=== PATIENT | female | born 1930 | race Asian ===

== ENCOUNTER 2016-07-20 15:40 | Inpatient (IN) | payer BC, OTHER ==
--- NOTE | 2016-07-20 16:26 | CON.CARD ---
Consult Consult Specialty:: Cardiology Reason for Consultation:: palpitations sob - History of Present Illness History of Present Illness: sob palpitations hr 140 patient brought by family to the er PMH s/p 2 drug-eluting (Promus) coronary stents in LAD 2009 Non-obstructive 3 VD on 07/2012 coronary angiogram s/p cataract surgery Ongoing medical problems angina CAD: s/p 2 DEStents to mid-LAD 08/[facility] at [facility] by Dr. Ramirez Cor angiogram 07/2012: LM 30stial; prox and midLAD stent sites patent; distal LAD 30% ostial LCx 50% mid LCx 30% RCA prox 30% OM3 40%. Diabetes mellitus, type II Gout Hypercholesterolemia Hyperlipidemia IgM monoclonal gammopathy; anemia overweight Meds Allopurinol 300 MG Oral Tablet Aspirin 81 MG Oral Tablet Delayed Release Atorvastatin Calcium (Lipitor) 80 MG Oral Tablet Atorvastatin Calcium 40 MG Oral Tablet Clopidogrel Bisulfate (Plavix) 75 MG Oral Tablet Colchicine 0.6 MG Oral Tablet Losartan Potassium 25 MG Oral Tablet MetFORMIN HCl 500 MG Oral Tablet Metoprolol Succinate (Metoprolol Succinate ER) 100 MG Oral Tablet Extended Release 24 Hour Nifedipine (NIFEdipine ER) 60 MG Oral Tablet Extended Release 24 Hour Nifedipine (Procardia XL) 60 MG Oral Tablet Extended Release 24 Hour ECHO Name: Mahesh Fatima Date: June 15, 2016 Referring MD: Diagnosis: HTN Aortic Root Normal Tricuspid Valve Normal Pericardium Normal Pulmonary artery Normal Pulmonic Valve Normal Aortic Valve Normal Left Ventricle Normal Right Ventricle Normal Pulmonic veins Not recorded Mitral Annulus Normal Mitral Leaflets Moderately Thickened Right Atrium Normal Left Atrium Moderate Enlargement Inferior vena cava Not recorded Aortic valve: AR = None Mitral valve: MR = Mild Pulmonic valve: CO = Mild Tricuspid valve TR= Mild SUMMARY 1. Normal left ventricular ejection fraction. 2. No regional wall motion abnormalities. 3. Abnormal diastolic compliance of the left ventricle. 4. Mild left ventricular hypertrophy. 5. Moderate left atrial enlargement. 6. Mild pulmonic valve regurgitation. 7. Moderately thickened mitral valve leaflets. 8. Mild mitral valve regurgitation. 9. Mild tricuspid valve regurgitation with normal right ventricle systolic pressure - Past Medical History Cardio/Vascular: Yes: CAD, CHF, HTN Renal/: Yes: Renal Inusuff Musculoskeletal: Yes: Chronic low back pain, Osteoarthritis Endocrine: Yes: Diabetes Mellitus - Alcohol/Substance Use Hx Alcohol Use: No History of Substance Use: reports: None - Smoking History Smoking history: Never smoked Have you smoked in the past 12 months: No Aproximately how many cigarettes per day: 0 - Social History ADL: Independent History of Recent Travel: No Home Medications - Allergies Allergies/Adverse Reactions: Allergies Allergy/AdvReac Type Severity Reaction Status Date / Time No Known Allergies Allergy Verified 07/20/16 15:53 - Home Medications Home Medications: Ambulatory Orders Allopurinol [Zyloprim -] 100 mg PO BID 09/20/15 Aspirin [Cheo Chewable Aspirin] 81 mg PO DAILY 09/20/15 Atorvastatin Ca [Lipitor] 40 mg PO HS 09/20/15 Clopidogrel Bisulfate [Plavix -] 75 mg PO DAILY 09/20/15 Glipizide [Glipizide ER] 2.5 mg PO HS 09/20/15 Glipizide [Glipizide ER] 5 mg PO DAILY 09/20/15 Metoprolol Succinate [Toprol XL -] 100 mg PO DAILY 09/20/15 Nifedipine ER [Procardia XL -] 60 mg PO BID 09/20/15 Amoxicillin - [Amoxicillin 500mg Capsule -] 500 mg PO BIDWM #10 capsule Insulin (Novolog) [Novolog -] 0 units SQ ACHS units 09/23/15 Sodium Chloride Tablet - 1 gm PO DAILY #20 tablet 09/23/15 Review of Systems - Review of Systems Constitutional: reports: No Symptoms Eyes: reports: No Symptoms HENT: reports: No Symptoms Neck: reports: No Symptoms Cardiovascular: reports: No Symptoms, Shortness of Breath Respiratory: reports: SOB Gastrointestinal: reports: No Symptoms Genitourinary: reports: No Symptoms Breasts: reports: No Symptoms Reported Musculoskeletal: reports: No Symptoms Integumentary: reports: No Symptoms Neurological: reports: No Symptoms Endocrine: reports: No Symptoms Hematology/Lymphatic: reports: No Symptoms Psychiatric: reports: No Symptoms Vital Signs: Vital Signs Temperature 98.2 F 07/20/16 15:52 Pulse Rate 142 H 07/20/16 15:52 Respiratory Rate 19 07/20/16 15:52 Blood Pressure 147/81 07/20/16 15:52 O2 Sat by Pulse Oximetry (%) 92 L 07/20/16 15:52 Constitutional: Yes: Well Nourished, No Distress, Calm Eyes: Yes: WNL, Conjunctiva Clear, EOM Intact HENT: Yes: WNL, Atraumatic, Normocephalic Neck: Yes: WNL, Supple, Trachea Midline Respiratory: Yes: WNL, Regular, CTA Bilaterally Gastrointestinal: Yes: WNL, Normal Bowel Sounds Renal/: Yes: WNL Cardiovascular: Yes: WNL, Regular Rate and Rhythm Musculoskeletal: Yes: WNL Extremities: Yes: WNL Edema: Yes Integumentary: Yes: WNL Neurological: Yes: WNL, Alert, Oriented ...Motor Strength: WNL Psychiatric: Yes: WNL, Alert, Oriented Imaging - Results Chest X-ray: Pending EKG: Image Reviewed (atrial tachycardia 2;1 block) Problem List - Problems (1) CAD (coronary artery disease) Code(s): I25.10 - ATHSCL HEART DISEASE OF [place] CORONARY ARTERY W/O ANG PCTRS (2) Chronic diastolic (congestive) heart failure Code(s): I50.32 - CHRONIC DIASTOLIC (CONGESTIVE) HEART FAILURE (3) Diabetes Code(s): E11.9 - TYPE 2 DIABETES MELLITUS WITHOUT COMPLICATIONS (4) HTN (hypertension) Code(s): I10 - ESSENTIAL (PRIMARY) HYPERTENSION (5) Hyperlipidemia Code(s): E78.5 - HYPERLIPIDEMIA, UNSPECIFIED (6) Hyponatremia with decreased serum osmolality Code(s): E87.1 - HYPO-OSMOLALITY AND HYPONATREMIA Assessment/Plan atrial tachycardia 2;1 block CHF diastolic acute angina CAD: s/p 2 DEStents to mid-LAD 08/2009 at [facility] by Dr. Ramirez Cor angiogram 07/2012: LM 30stial; prox and midLAD stent sites patent; distal LAD 30% ostial LCx 50% mid LCx 30% RCA prox 30% OM3 40%. Diabetes mellitus, type II Gout Hypercholesterolemia Hyperlipidemia IgM monoclonal gammopathy; anemia overweight Plan r/o mi telemetry or icu iv lasix echo iv cardizem bolus/drip to rate control ac with heparin restart plavix and Toprol
[2016-07-20] MEDS ORDERED: dilTIAZem HCL 50 MG/10 ML - 10 ML VIAL IVPUSH ONE (16:27)
[2016-07-20] MEDS ORDERED: ASPIRIN 81 MG CHEWABLE TABLETS PO ONE (16:29)
--- NOTE | 2016-07-20 16:35 | PDOC ---
History of Present Illness - General History Source: Patient Exam Limitations: No Limitations - History of Present Illness Initial Comments: 07/20/16 16:35 The patient is a 85 year old female presenting with her family, with a significant past medical history of LA, CAD s/p stents, CHF, NIDDM, renal insufficiency, and HTN, who presents to the emergency department with tachycardia and shortness of breath. The patient notes that she recently had a right ear infection and is currently taking cipro ear drops and oral tablets. She states that over the last 7 months she has noticed increase in her lower extremity edema but has increased in severity over the last week or so. The patient denies chest pain, headache and dizziness. Denies fever, chills, nausea, vomit, diarrhea and constipation. Denies dysuria, frequency, urgency and hematuria. Allergies: None Past surgical history: angelia. knee replacement, left lobe thyroidectomy Social history: No alcohol, tobacco or drug use reported PMD - Dr. Margareth Woodard Licensed Therapist - Dr. Clayton <Kleber Onofre - Last Filed: 07/20/16 18:32> - General History Source: Patient Exam Limitations: No Limitations <Edilberto Felix - Last Filed: 07/23/16 15:42> - General Chief Complaint: Tachycardia Stated Complaint: SOB Time Seen by Provider: 07/20/16 16:18 Past History <Kleber Onofre - Last Filed: 07/20/16 18:32> - Past Medical History Anemia: No Asthma: No Cancer: No Cardiac Disorders: Yes (mi/cath/2 stents) CVA: No COPD: No CHF: No Dementia: No Diabetes: Yes (po meds only) GI Disorders: No Disorders: No HTN: Yes Hypercholesterolemia: No Liver Disease: No Seizures: No Thyroid Disease: Yes (left lobe thyroidectomy) - Surgical History Abdominal Surgery: No Appendectomy: No Cardiac Surgery: Yes (2 STENTS) Cholecystectomy: No Lung Surgery: No Orthopedic Surgery: Yes (angelia. knee replacement) - Psycho/Social/Smoking Cessation Hx Suicidal Ideation: No Smoking Status: No Smoking History: Never smoked Have you smoked in the past 12 months: No Number of Cigarettes Smoked Daily: 0 Information on smoking cessation initiated: No Hx Alcohol Use: No Drug/Substance Use Hx: No Substance Use Type: None Hx Substance Use Treatment: No <Edilberto Felix - Last Filed: 07/23/16 15:42> - Past Medical History Allergies/Adverse Reactions: Allergies Allergy/AdvReac Type Severity Reaction Status Date / Time No Known Allergies Allergy Verified 07/20/16 15:53 Home Medications: Ambulatory Orders Allopurinol [Zyloprim -] 100 mg PO BID 09/20/15 Aspirin [Cheo Chewable Aspirin] 81 mg PO DAILY 09/20/15 Atorvastatin Ca [Lipitor] 40 mg PO HS 09/20/15 Clopidogrel Bisulfate [Plavix -] 75 mg PO DAILY 09/20/15 Glipizide [Glipizide ER] 2.5 mg PO HS 09/20/15 Glipizide [Glipizide ER] 5 mg PO DAILY 09/20/15 Metoprolol Succinate [Toprol XL -] 100 mg PO DAILY 09/20/15 Nifedipine ER [Procardia XL -] 60 mg PO BID 09/20/15 Review of Systems - Review of Systems Able to Perform ROS?: Yes Comments:: 07/20/16 16:36 GENERAL/CONSTITUTIONAL: No fever or chills. No weakness. HEAD, EYES, EARS, NOSE AND THROAT: No change in vision. No ear pain or discharge. No sore throat. CARDIOVASCULAR: +Shortness of breath and No chest pain RESPIRATORY: No cough, wheezing, or hemoptysis. GASTROINTESTINAL: No nausea, vomiting, diarrhea or constipation. GENITOURINARY: No dysuria, frequency, or change in urination. MUSCULOSKELETAL: No joint or muscle swelling or pain. No neck or back pain. SKIN: No rash NEUROLOGIC: No headache, vertigo, loss of consciousness, or change in strength/ sensation. ENDOCRINE: No increased thirst. No abnormal weight change HEMATOLOGIC/LYMPHATIC: No anemia, easy bleeding, or history of blood clots. ALLERGIC/IMMUNOLOGIC: No hives or skin allergy. <Kleber Onofre - Last Filed: 07/20/16 18:32> *Physical Exam - Vital Signs Last Vital Signs Temp Pulse Resp BP Pulse Ox 98.2 F 142 H 19 147/81 92 L 07/20/16 15:52 07/20/16 15:52 07/20/16 15:52 07/20/16 15:52 07/20/16 15:52 - Physical Exam Comments: 07/20/16 16:36 GENERAL: Awake, alert, and fully oriented, in no acute distress HEAD: No signs of trauma, normocephalic, atraumatic EYES: PERRLA, EOMI, sclera anicteric, conjunctiva clear ENT: Auricles normal inspection, hearing grossly normal, nares patent, oropharynx clear without exudates. Moist mucosa NECK: Normal ROM, supple, no lymphadenopathy, JVD, or masses LUNGS: No distress, speaks full sentences, clear to auscultation bilaterally HEART: +Tachycardia, normal S1 and S2, no murmurs, rubs or gallops, peripheral pulses normal and equal bilaterally. ABDOMEN: Soft, nontender, normoactive bowel sounds. No guarding, no rebound. No masses EXTREMITIES: 2+ pitting edema, Normal range of motion. No clubbing or cyanosis. NEUROLOGICAL: Cranial nerves II through XII grossly intact. Normal speech, normal gait, no focal sensorimotor deficits SKIN: Warm, Dry, normal turgor, no rashes or lesions noted. <Kleber Onofre - Last Filed: 07/20/16 18:32> - Vital Signs Last Vital Signs Temp Pulse Resp BP Pulse Ox 98.2 F 142 H 19 147/81 92 L 07/20/16 15:52 07/20/16 15:52 07/20/16 15:52 07/20/16 15:52 07/20/16 15:52 <Edilberto Felix - Last Filed: 07/23/16 15:42> Heart Score/ECG Review - History History: Moderately suspicious - Electrocardiogram EKG: Non specific repolarization disturbance - Age Age: >/= 65 - Risk Factors Based on the list above the patient has:: >/=3 risk factors or Hx atherosclerotic disease #1 ECG reviewed & interpreted by me at: 16:20 07/20/16 16:31 atrial tachycardia, LAFB, subSTD II, no TEODORA, left axis deviation, QTC 517 msec #2 ECG reviewed & interpreted by me at: 17:20 07/20/16 17:27 atrial flutter with variable AV block 84, left axis deviation, no std/teodora, QTC 470 msec <Edilberto Felix - Last Filed: 07/23/16 15:42> ED Treatment Course - LABORATORY CBC & Chemistry Diagram: 07/20/16 16:40 07/20/16 16:40 <Kleber Onofre - Last Filed: 07/20/16 18:32> - LABORATORY CBC & Chemistry Diagram: 07/23/16 06:20 07/23/16 06:20 - RADIOLOGY Radiology Studies Ordered: Category Date Time Status CHEST X-RAY PORTABLE* [RAD] Stat Radiology 07/20/16 16:20 Ordered <Edilberto Felix - Last Filed: 07/23/16 15:42> Medical Decision Making - Medical Decision Making 07/20/16 18:32 Dr. Margareth Woodard was consulted regarding the patient at 6:11pm [phone] <Kleber Onofre - Last Filed: 07/20/16 18:32> - Critical Care Time Total Critical Care Time (minutes): 35 Critical Care Statement: The care of this patient involved high complexity decision making to prevent further life threatening deterioration of the patient 's condition and/or to evalute & treat vital organ system(s) failure or risk of failure. - Medical Decision Making 07/20/16 16:31 A portion of this note was written by my scribe, under my supervision. Vital Signs Temp Pulse Resp BP Pulse Ox 98.2 F 142 H 19 147/81 92 L 07/20/16 15:52 07/20/16 15:52 07/20/16 15:52 07/20/16 15:52 07/20/16 15:52 85 year old male with PMH of CRI, CAD s/p stents, CHF on 40 mg lasix daily, HTN , DM p/w SOB and palpitations since 1 am today. The patient noticed that she was feeling more dyspneic, but denied chest pain. Pt reported that she is currently on cipro drop and oral abx for R otitis media that was prescribed by her outpatient physician. Denies other symptoms. Upon arrival, the patient reports feeling SOB. The patient is here with her utility aide DR. Dupree. Noted to be in atrial tachycardia. As per DR. Dupree, start with IV cardizem. Pt will need ACS/CHF workup given lower extremity edema and hx of CHF. Likely will need lasix. Ultimately, the patient will need to be admitted for further evaluation. 07/20/16 18:16 CBC, BMP 07/20/16 16:40 04/12/17 16:40 CMP Sodium 136 mmol/L (136-145) 07/20/16 16:40 Potassium 4.4 mmol/L (3.5-5.1) 07/20/16 16:40 Chloride 99 mmol/L (98-107) 07/20/16 16:40 Carbon Dioxide 24 mmol/L (21-32) 07/20/16 16:40 Anion Gap 13 (8-16) 07/20/16 16:40 BUN 35 mg/dL (7-18) H D 07/20/16 16:40 Creatinine 1.6 mg/dL (0.55-1.02) H D 07/20/16 16:40 Creat Clearance w eGFR 30.78 (>60) 07/20/16 16:40 Random Glucose 229 mg/dL (74-106) H D 07/20/16 16:40 Calcium 9.0 mg/dL (8.5-10.1) 07/20/16 16:40 Magnesium 2.2 mg/dL (1.8-2.4) D 07/20/16 16:40 Total Bilirubin 0.5 mg/dL (0.2-1.0) 07/20/16 16:40 AST 100 U/L (15-37) H D 07/20/16 16:40 ALT 123 U/L (12-78) H D 07/20/16 16:40 Alkaline Phosphatase 196 U/L (45-117) H D 07/20/16 16:40 Creatine Kinase 247 IU/L (26-192) H 07/20/16 16:40 CK-MB (CK-2) < 1.000 ng/ml (0.5-3.6) 07/20/16 16:40 Troponin I 0.15 ng/ml (0.00-0.05) H 07/20/16 16:40 B-Natriuretic Peptide 80661.96 pg/ml (5-450) H 07/20/16 16:40 Total Protein 7.8 g/dl (6.4-8.2) 07/20/16 16:40 Albumin 3.4 g/dl (3.4-5.0) 07/20/16 16:40 Patient's heart rate improved with 20 minutes of IV diltiazem. Heart rate is now under 100. Repeat EKG demonstrates atrial flutter with variable block. Patient was given 30 mg of by mouth Cardizem. Patient noted have an elevated BNP of 14,000 and a chest x-ray, reviewed by me, pending official read with pulmonary vascular congestion. 80 mg of IV diltiazem ordered. Aspirin was given. Though I suspect the mildly elevated troponin secondary to fluid overload. Case was discussed with Dr. Woodard which is the patient to inpatient telemetry. Case discussed in detail with admitting physician including history, physical exam and ancillary studies. Admitting physician has assumed care for the patient, will follow all pending diagnostics and will complete the evaluation and treatment. <Edilberto Felix - Last Filed: 07/23/16 15:42> *DC/Admit/Observation/Transfer - Attestations Scribe Attestion: 07/20/16 16:3 Documentation prepared by Kleber Onofre, acting as medical imaging director for Edilberto Felix MD <Kleber Onofre - Last Filed: 07/20/16 18:32> - Discharge Dispostion Admit: Yes <Edilberto Felix - Last Filed: 07/23/16 15:42> Diagnosis at time of Disposition: Atrial fibrillation with RVR CHF (congestive heart failure) Qualifiers: Congestive heart failure type: unspecified congestive heart failure type Congestive heart failure chronicity: acute Qualified Code(s): I50.9 - Heart failure, unspecified - Referrals
[2016-07-20] MEDS ORDERED: ASPIRIN 81 MG CHEWABLE TABLETS ONE (16:38)
[2016-07-20] MEDS ORDERED: dilTIAZem HCL 125 MG/25 ML - 25 ML VIAL ONE (16:38)
[2016-07-20 16:48] LABS: BASOPHIL 0.9 % (0-2.0); EOSINOPHIL 0.3 % (0-4.5); MCH 30.1 pg (25.7-33.7); MCHC 32.7 g/dl (32.0-36.0); MEAN PLT VOLUME 9.1 fl (7.5-11.1); NEUTROPHILS 80.6 % (42.8-82.8); PLATELET COUNT 239 K/MM3 (134-434); RDW 15.1 % (11.6-15.6); WHITE BLOOD COUNT 11.5 K/mm3 (4.0-10.0)
[2016-07-20] MEDS ORDERED: dilTIAZem HCL 30 MG TABLET (FP) PO ONE (16:51)
[2016-07-20 17:01] LABS: INR 1.04 (0.82-1.09); PROTHROMBIN TIME (PATIENT) 11.4 SEC (9.98-11.88)
[2016-07-20 17:04] LABS: ACTIVATED PTT 30.5 SECONDS (26.9-34.4)
[2016-07-20 17:19] LABS: ALBUMIN 3.4 g/dl (3.4-5.0); ANION GAP 13 (8-16); BILIRUBIN,TOTAL 0.5 mg/dL (0.2-1.0); CO2 24 mmol/L (21-32); CREATININE 1.6 mg/dL (0.55-1.02); GLUCOSE,RANDOM 229 mg/dL (74-106); MAGNESIUM 2.2 mg/dL (1.8-2.4); SGOT/AST 100 U/L (15-37); SGPT/ALT 123 U/L (12-78); TOT PROT 7.8 g/dl (6.4-8.2)
[2016-07-20 17:21] LABS: ALK PHOS 196 U/L (45-117); TROPONIN I 0.15 ng/ml (0.00-0.05)
[2016-07-20] MEDS ORDERED: dilTIAZem HCL 30 MG TABLET (FP) ONE (17:22)
[2016-07-20] MEDS ORDERED: FUROSEMIDE 40 MG/4 ML INJECTABLE VIAL IVPB ONE (18:05)
[2016-07-20] MEDS ORDERED: FUROSEMIDE 40 MG/4 ML INJECTABLE VIAL ONE (18:18)
[2016-07-20 18:46] LABS: URINE APPEARANCE CLEAR; URINE BILIRUBIN NEGATIVE (NEGATIVE); URINE BLOOD NEGATIVE (NEGATIVE); URINE COLOR STRAW; URINE GLUCOSE (UA) NEGATIVE (NEGATIVE); URINE KETONE NEGATIVE (NEGATIVE); URINE LEUK ESTERASE NEGATIVE (NEGATIVE); URINE NITRITE NEGATIVE (NEGATIVE); URINE PROTEIN NEGATIVE (NEGATIVE); URINE UROBILINOGEN NEGATIVE E.U./dl (0.2-1.0)
[2016-07-20] MEDS ORDERED: HEPARIN NA (PORCINE) 5,000 UNITS/ML 1ML VIAL IVPUSH PRN ×2 (21:43)
[2016-07-20] MEDS ORDERED: glipiZIDE-XL 2.5 MG TAB.ER.24 PO SCH ×3 (22:00)
[2016-07-20] MEDS ORDERED: HEPARIN INFUSION - 500 ML IVPB ONE (23:28)
[2016-07-21] MEDS ORDERED: dilTIAZem HCL 50 MG/10 ML - 10 ML VIAL IVPUSH ONE (00:46)
[2016-07-21] MEDS ORDERED: dilTIAZem HCL 125 MG/25 ML - 25 ML VIAL ONE (00:47)
[2016-07-21] MEDS: HEPARIN - 25,000 UNIT in SODIUM CHLORIDE 495 ML IV SCH ×2 (01:22→11:28)
[2016-07-21] MEDS: NIFEdipine E.R 60 MG TABLET (UD) PO SCH ×3 (01:27→22:19)
[2016-07-21] MEDS: ALLOPURINOL 100 MG TABLET (FP) PO SCH ×3 (06:32→22:02)
[2016-07-21] MEDS: INSULIN SLIDING SCALE (NOVOLOG) 1 VIAL SQ SCH ×6 (06:53→22:01)
[2016-07-21] MEDS ORDERED: INSULIN (NOVOLOG) ASPART 100 UNITS/ML 10ML VIAL ONE ×4 (06:56→17:45)
[2016-07-21 07:41] LABS: BASOPHIL 0.4 % (0-2.0); EOSINOPHIL 0.1 % (0-4.5); MCH 30.6 pg (25.7-33.7); MCHC 32.9 g/dl (32.0-36.0); MEAN CELL VOLUME 93.1 fl (80-96); MEAN PLT VOLUME 9.4 fl (7.5-11.1); NEUTROPHILS 81.7 % (42.8-82.8); PLATELET COUNT 224 K/MM3 (134-434); RDW 15.1 % (11.6-15.6); WHITE BLOOD COUNT 11.5 K/mm3 (4.0-10.0)
[2016-07-21 08:09] LABS: ALBUMIN 3.1 g/dl (3.4-5.0); CALCIUM 8.6 mg/dL (8.5-10.1); FREE T4 1.38 ng/dl (0.76-1.46); TROPONIN I 0.26 ng/ml (0.00-0.05)
[2016-07-21 08:13] LABS: FERRITIN 796.58 ng/ml (6.9-282.5)
[2016-07-21 08:21] LABS: BILIRUBIN,DIRECT 0.7 mg/dL (0.0-0.2); BILIRUBIN,TOTAL 1.2 mg/dL (0.2-1.0); COCKROFT - GAULT 21.76; CREATININE 2.3 mg/dL (0.55-1.02); THYROID STIMULATING HORMONE 2.11 uIU/ml (0.358-3.74)
[2016-07-21] MEDS ORDERED: CLOPIDOGREL BISULFATE 75 MG TABLET (FP) PO SCH (10:00)
--- NOTE | 2016-07-21 10:03 | HP ---
Admitting History and Physical - Primary Care Physician PCP: Margareth Woodard S - Admission Chief Complaint: palpitations SOB History of Present Illness: The patient is a 85 year old female presenting with her family, with a significant past medical history of CA, CAD s/p stents, CHF, NIDDM, renal insufficiency, and HTN, who presents to the emergency department with tachycardia and shortness of breath. The patient notes that she recently had a right ear infection and is currently taking cipro ear drops and oral tablets. She states that over the last 7 months she has noticed increase in her lower extremity edema but has increased in severity over the last week or so. The patient denies chest pain, headache and dizziness. Denies fever, chills, nausea, vomit, diarrhea and constipation. Denies dysuria, frequency, urgency and hematuria. History Source: Patient, Medical Record Limitations to Obtaining History: No Limitations - Past Medical History Cardiovascular: Yes: CAD, CHF, HTN Renal/: Yes: Renal Inusuff Heme/Onc: Yes: Anemia Musculoskeletal: Yes: Chronic low back pain, Osteoarthritis Endocrine: Yes: Diabetes Mellitus - Smoking History Smoking history: Never smoked Have you smoked in the past 12 months: No Aproximately how many cigarettes per day: 0 - Alcohol/Substance Use Hx Alcohol Use: No History of Substance Use: reports: None - Social History Usual Living Arrangement: Yes: With Significant Other ADL: Independent History of Recent Travel: No Home Medications - Allergies Allergies/Adverse Reactions: Allergies Allergy/AdvReac Type Severity Reaction Status Date / Time No Known Allergies Allergy Verified 07/20/16 15:53 - Home Medications Home Medications: Ambulatory Orders Allopurinol [Zyloprim -] 100 mg PO BID 09/20/15 Aspirin [Cheo Chewable Aspirin] 81 mg PO DAILY 09/20/15 Atorvastatin Ca [Lipitor] 40 mg PO HS 09/20/15 Clopidogrel Bisulfate [Plavix -] 75 mg PO DAILY 09/20/15 Glipizide [Glipizide ER] 2.5 mg PO HS 09/20/15 Glipizide [Glipizide ER] 5 mg PO DAILY 09/20/15 Metoprolol Succinate [Toprol XL -] 100 mg PO DAILY 09/20/15 Nifedipine ER [Procardia XL -] 60 mg PO BID 09/20/15 Family Disease History - Family Disease History Family History: Unremarkable Review of Systems - Review of Systems Constitutional: denies: Chills, Fever, Lethargy Eyes: denies: Blind Spots, Blurred Vision, Double Vision HENT: reports: Ear Pain. denies: Difficult Swallowing Neck: denies: Stiffness, Tenderness Cardiovascular: reports: Edema, Palpitations, Shortness of Breath. denies: Chest Pain Respiratory: reports: Exercise Intolerance, SOB, SOB on Exertion. denies: Cough , Hemoptysis, Orthopnea, PND, Wheezing Gastrointestinal: denies: Abdominal Pain, Bloating, Constipation, Diarrhea, Vomiting Genitourinary: denies: Burning, Discharge, Dysuria, Flank Pain Musculoskeletal: reports: Back Pain (chronic on/off with moving) Integumentary: denies: Pruritis, Rash, Wound Neurological: denies: Change in LOC, Confusion, Dizziness Hematology/Lymphatic: denies: Easily Bruised, Excessive Bleeding Psychiatric: denies: Altered Sleep Pattern, Anxiety, Depression Physical Examination Vital Signs: Vital Signs Temperature 98.9 F 07/21/16 07:00 Pulse Rate 60 07/21/16 07:00 Respiratory Rate 20 07/21/16 07:00 Blood Pressure 103/67 07/21/16 07:00 O2 Sat by Pulse Oximetry (%) 97 07/21/16 07:00 Constitutional: Yes: No Distress, Calm Eyes: Yes: Conjunctiva Clear HENT: Yes: Atraumatic Neck: Yes: Supple Cardiovascular: No: Regular Rate and Rhythm Respiratory: Yes: Diminished Gastrointestinal: Yes: Soft, Abdomen, Obese. No: Distention, Tenderness Renal/: No: CVA Tenderness - Left, CVA Tenderness - Right, Hematuria Musculoskeletal: No: Joint Stiffness, Joint Swelling Extremities: No: Cold, Cool Edema: Yes (1+ pretibial bilateral) Peripheral Pulses WNL: Yes Integumentary: No: Pressure Ulcer, Rash, Venous Stasis Changes Neurological: Yes: WNL, Alert, Oriented ...Motor Strength: WNL Psychiatric: Yes: WNL, Alert, Oriented. No: Agitated, Suicidal Ideation Labs: CBC, BMP 07/21/16 07:00 07/21/16 07:00 Imaging - Results Chest X-ray: Report Reviewed Other: Report Reviewed Assessment/Plan The patient is a 85 year old female with a significant past medical history of CA, CAD s/p stents, CHF, NIDDM, renal insufficiency, and HTN, who presents to the emergency department with tachycardia and shortness of breath and pedal edema, found to be in new onset rapid AFib and acute on chronic renal failure admit to monitored unit telemetry or ICU IV heparin; might need IV cardizem for HR control received lasix iv, will f/u labs and CXR; if worsening renal fct will call renal eval cardiology eval falls decubs DVT pfx f/u labs, echo, TFTs diabetes control weight loss, diet d/w pt d/w pt and staff and pt's family at bedside (sister, brother in law) prognosis guarded t time 75 min
[2016-07-21 10:53] LABS: INR 1.1 (0.82-1.09); PROTHROMBIN TIME (PATIENT) 12.1 SEC (9.98-11.88)
[2016-07-21 10:57] LABS: ACTIVATED PTT 44.8 SECONDS (26.9-34.4)
[2016-07-21] MEDS: ASPIRIN 81 MG CHEWABLE TABLETS PO SCH (11:12)
[2016-07-21] MEDS: METOPROLOL SUCCINATE 100 MG TAB.SR.24H (FP) PO SCH (11:14)
[2016-07-21] MEDS ORDERED: HEPARIN NA (PORCINE) 5,000 UNITS/ML 1ML VIAL ONE (11:26)
--- NOTE | 2016-07-21 11:40 | EKG ---
Test Reason : Blood Pressure : / mmHG Vent. Rate : 084 BPM Atrial Rate : 300 BPM P-R Int : 000 ms QRS Dur : 090 ms QT Int : 398 ms P-R-T Axes : 264 -30 086 degrees QTc Int : 470 ms ATRIAL FLUTTER WITH VARIABLE A-V BLOCK LEFT AXIS DEVIATION ABNORMAL ECG WHEN COMPARED WITH ECG OF 20-JUL-2016 16:15, ATRIAL FLUTTER HAS REPLACED SINUS RHYTHM VENT. RATE HAS DECREASED BY [address] NO LONGER DEPRESSED IN INFERIOR LEADS ST NO LONGER DEPRESSED IN ANTEROLATERAL LEADS Confirmed by BALJINDER LIN MD ([id number]) on 07/21/2016 11:40:02 AM Referred By: Confirmed By:BALJINDER LIN MD
[2016-07-21 12:50] VITALS: BMI 29.2
--- NOTE | 2016-07-21 15:38 | EKG ---
Test Reason : Blood Pressure : / mmHG Vent. Rate : 144 BPM Atrial Rate : 069 BPM P-R Int : 000 ms QRS Dur : 076 ms QT Int : 334 ms P-R-T Axes : 000 -45 130 degrees QTc Int : 517 ms SINUS TACHYCARDIA WITH 1ST DEGREE A-V BLOCK LEFT ANTERIOR FASCICULAR BLOCK NONSPECIFIC T WAVE ABNORMALITY ABNORMAL ECG Confirmed by BALJINDER LIN MD ([id number]) on 07/21/2016 3:38:18 PM Referred By: Confirmed By:BALJINDER LIN MD
[2016-07-21] MEDS: glipiZIDE-XL 2.5 MG TAB.ER.24 PO SCH (17:46)
[2016-07-21 19:10] LABS: INR 1.12 (0.82-1.09); PROTHROMBIN TIME (PATIENT) 12.3 SEC (9.98-11.88)
[2016-07-21 19:12] LABS: ACTIVATED PTT 41.3 SECONDS (26.9-34.4)
[2016-07-21] MEDS ORDERED: ALBUTEROL SO4 0.083% IH SOL 2.5 MG/3 ML VIAL.NEB. NEB ONE (22:08)
[2016-07-21] MEDS ORDERED: FUROSEMIDE 40 MG/4 ML INJECTABLE VIAL ONE (22:11)
[2016-07-21] MEDS ORDERED: FUROSEMIDE 40 MG/4 ML INJECTABLE VIAL IVPUSH ONE (22:15)
[2016-07-21] MEDS: ALBUTEROL SO4 0.083% IH SOL 2.5 MG/3 ML VIAL.NEB. NEB PRN (22:19)
[2016-07-22] MEDS: HEPARIN - 25,000 UNIT in SODIUM CHLORIDE 495 ML IV SCH (04:19)
[2016-07-22 06:07] LABS: FREE T3 1.6 pg/mL (2.0-4.4)
[2016-07-22] MEDS ORDERED: INSULIN (NOVOLOG) ASPART 100 UNITS/ML 10ML VIAL ONE (06:58)
[2016-07-22] MEDS: INSULIN SLIDING SCALE (NOVOLOG) 1 VIAL SQ SCH ×4 (07:01→22:14)
[2016-07-22] MEDS: glipiZIDE-XL 5 MG TAB.ER.24 PO SCH (07:01)
[2016-07-22 07:33] LABS: MCH 30.4 pg (25.7-33.7); MCHC 33.1 g/dl (32.0-36.0); MEAN CELL VOLUME 91.7 fl (80-96); MEAN PLT VOLUME 9.6 fl (7.5-11.1); PLATELET COUNT 206 K/MM3 (134-434); RDW 14.9 % (11.6-15.6); WHITE BLOOD COUNT 11.9 K/mm3 (4.0-10.0)
[2016-07-22] MEDS: ASPIRIN 81 MG CHEWABLE TABLETS PO SCH (09:32)
[2016-07-22] MEDS: ALLOPURINOL 100 MG TABLET (FP) PO SCH ×2 (09:32→22:13)
[2016-07-22] MEDS: METOPROLOL SUCCINATE 100 MG TAB.SR.24H (FP) PO SCH ×2 (09:32→11:04)
[2016-07-22] MEDS: NIFEdipine E.R 60 MG TABLET (UD) PO SCH ×2 (09:32→22:13)
--- NOTE | 2016-07-22 10:04 | PN ---
Progress Note, Physician Chief Complaint: Pt A&Ox3; short of breath with mild exertion; denies palpitations or chest pain. Brother and other family members at bedside. History of Present Illness: The patient is a 85 year old female (rhaul Keen) presenting with her family, with a significant past medical history of [place], CAD s/p stents 2013, diastolic CHF, NIDDM, renal insufficiency, and HTN, who presents to the emergency department with tachycardia and shortness of breath. The patient notes that she recently had a right ear infection and is currently taking cipro ear drops and oral tablets. She states that over the last 7 months she has noticed increase in her lower extremity edema but has increased in severity over the last week or so. The patient denies chest pain, headache and dizziness. Denies fever, chills, nausea, vomit, diarrhea and constipation. Denies dysuria, frequency, urgency and hematuria. Allergies: None Past surgical history: angelia. 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 - Current Medication List Current Medications: Active Medications Albuterol Sulfate (Ventolin 0.083% Nebulizer Soln -) 1 amp NEB Q6H PRN PRN Reason: SHORT OF BREATH/WHEEZING Last Admin: 07/21/16 22:19 Dose: 1 amp Allopurinol (Zyloprim -) 100 mg PO BID [facility] Last Admin: 07/22/16 09:32 Dose: 100 mg Aspirin (Asa -) 81 mg PO DAILY [facility] Last Admin: 07/22/16 09:32 Dose: 81 mg Glipizide (Glucotrol Xl -) 5 mg PO AM [facility] Last Admin: 07/22/16 07:01 Dose: 5 mg Glipizide (Glucotrol Xl -) 2.5 mg PO DAILY@1630 [facility] Last Admin: 07/21/16 17:46 Dose: 2.5 mg Heparin Sodium (Porcine) (Heparin -) 1,000 unit IVPUSH PRN PRN PRN Reason: Heparin Last Admin: 07/21/16 11:27 Dose: 1,000 unit Heparin Sodium (Porcine) (Heparin -) 5,000 unit IVPUSH PRN PRN PRN Reason: Heparin Heparin Sodium (Porcine) 25, (000 unit/ Sodium Chloride) 500 mls @ 20 mls/hr IV TITR ROBI; 1,000 UNIT/HR PRN Reason: Protocol Last Admin: 07/22/16 04:19 Dose: 24 mls/hr Insulin Aspart (Novolog Vial Sliding Scale -) 1 vial SQ ACHS [facility] PRN Reason: Protocol Last Admin: 07/22/16 07:01 Dose: 6 units Metoprolol Succinate (Toprol Xl -) 100 mg PO DAILY [facility] Last Admin: 07/22/16 09:32 Dose: Not Given Nifedipine (Procardia Xl -) 60 mg PO BID [facility] Last Admin: 07/22/16 09:32 Dose: Not Given - Objective Vital Signs: Vital Signs Temperature 98.3 F 07/22/16 06:00 Pulse Rate 66 07/22/16 06:00 Respiratory Rate 20 07/22/16 06:00 Blood Pressure 102/50 07/22/16 06:00 O2 Sat by Pulse Oximetry (%) 94 L 07/21/16 22:00 Constitutional: Yes: Calm Eyes: Yes: WNL HENT: Yes: WNL Neck: Yes: WNL Cardiovascular: Yes: Regular Rate and Rhythm Respiratory: Yes: Regular Gastrointestinal: Yes: Soft ...Rectal Exam: Yes: Deferred Genitourinary: Yes: Anuria Musculoskeletal: Yes: Muscle Weakness Extremities: Yes: Cool Edema: No Peripheral Pulses WNL: No Peripheral Pulses: Left Doralis Pedis: 1+, Right Dorsalis Pedis: 1+ Integumentary: Yes: WNL Neurological: Yes: Alert, Oriented Psychiatric: Yes: Other (anxiety) Labs: CBC, BMP 07/22/16 06:00 07/21/16 07:00 INR, PTT INR 1.12 (0.82-1.09) 07/21/16 18:38 - ....Imaging Other: Image Reviewed (telemetry: NSR; occasional APCs) Problem List - Problems (1) Atrial fibrillation with RVR Assessment/Plan: Now in normal sinus rhythm. Continue metoprolol for HR contol. Discontinue clopidogrel (s/p coronary stent several years ago). On ASA 81 mg daily. Pt is on IV heparin; start PO anticoagulation. F/u ECHO (hx diastolic CHF). Code(s): I48.91 - UNSPECIFIED ATRIAL FIBRILLATION (2) CAD (coronary artery disease) Code(s): I25.10 - ATHSCL HEART DISEASE OF [place] CORONARY ARTERY W/O ANG PCTRS (3) Chronic diastolic (congestive) heart failure Code(s): I50.32 - CHRONIC DIASTOLIC (CONGESTIVE) HEART FAILURE (4) Diabetes Code(s): E11.9 - TYPE 2 DIABETES MELLITUS WITHOUT COMPLICATIONS (5) HTN (hypertension) Code(s): I10 - ESSENTIAL (PRIMARY) HYPERTENSION (6) Hyperlipidemia Code(s): E78.5 - HYPERLIPIDEMIA, UNSPECIFIED
--- NOTE | 2016-07-22 12:53 | CONSULT ---
Consult - text type - Consultation Consultation Note: Renal Consult for JET on CKD This is a 85 year old woman with PMhx of CKD, Hypertension, CAD, NIDDM who presented [facility] with tachycardia, SOB and LE swelling and found to have Afib with RVR and CHF with worsening Cr in setting of IV diuretics. Pt states that her LE swelling worsened over the past 3 weeks. Also has been having ANN. Palpitations started 1 day before admission. No NSAID use. No Contrast exposure. No flank pain. No hematuria. s/p IV Lasix on initial 2 days of admission. Pt also with some relative hypotension. No Feer, chills, chest pain at this time. Pt is seen in the office by Dr. Maya Daniels. PMhx: as above Allergies: NKDA Family hx: [place] Social Hx: ROS: As per HPI Home Meds: Home Medications Medication Instructions Recorded Allopurinol [Zyloprim -] 100 mg PO BID 09/20/15 Aspirin [Cheo Chewable Aspirin] 81 mg PO DAILY 09/20/15 Atorvastatin Ca [Lipitor] 40 mg PO HS 09/20/15 Clopidogrel Bisulfate [Plavix -] 75 mg PO DAILY 09/20/15 Glipizide [Glipizide ER] 2.5 mg PO HS 09/20/15 Glipizide [Glipizide ER] 5 mg PO DAILY 09/20/15 Metoprolol Succinate [Toprol XL -] 100 mg PO DAILY 09/20/15 Nifedipine ER [Procardia XL -] 60 mg PO BID 09/20/15 Vital Signs Temperature 98.4 F 07/22/16 10:00 Pulse Rate 65 07/22/16 10:00 Respiratory Rate 20 07/22/16 10:00 Blood Pressure 108/52 07/22/16 10:00 O2 Sat by Pulse Oximetry (%) 94 L 07/21/16 22:00 Gen: NAD, awake and alert HEENT: NC/AT, No JVD CVS: RRR, No M/R Lungs: CTA, no rales Abd: soft NT/ND Ext: Trace to 1+ edema : No Bladder distension Neuro: No focal defects CBC, BMP 07/22/16 06:00 07/21/16 07:00 Laboratory Tests 07/20/16 07/21/16 16:40 07:00 BUN 35 H D 42 H Creatinine 1.6 H D 2.3 H D Laboratory Tests 07/20/16 07/21/16 07/21/16 18:15 07:00 07:00 MCV ESR 95 H Urine Protein Negative Urine Blood Negative SATNAM Screen Pending 07/22/16 06:00 MCV 91.7 ESR Urine Protein Urine Blood SATNAM Screen Current Medications Albuterol Sulfate (Ventolin 0.083% Nebulizer Soln -) 1 amp NEB Q6H PRN PRN Reason: SHORT OF BREATH/WHEEZING Last Admin: 07/21/16 22:19 Dose: 1 amp Allopurinol (Zyloprim -) 100 mg PO BID [facility] Last Admin: 07/22/16 09:32 Dose: 100 mg Aspirin (Asa -) 81 mg PO DAILY [facility] Last Admin: 07/22/16 09:32 Dose: 81 mg Glipizide (Glucotrol Xl -) 5 mg PO AM [facility] Last Admin: 07/22/16 07:01 Dose: 5 mg Glipizide (Glucotrol Xl -) 2.5 mg PO DAILY@1630 [facility] Last Admin: 07/21/16 17:46 Dose: 2.5 mg Heparin Sodium (Porcine) (Heparin -) 1,000 unit IVPUSH PRN PRN PRN Reason: Heparin Last Admin: 07/21/16 11:27 Dose: 1,000 unit Heparin Sodium (Porcine) (Heparin -) 5,000 unit IVPUSH PRN PRN PRN Reason: Heparin Heparin Sodium (Porcine) 25, (000 unit/ Sodium Chloride) 500 mls @ 20 mls/hr IV TITR ROBI; 1,000 UNIT/HR PRN Reason: Protocol Last Admin: 07/22/16 04:19 Dose: 24 mls/hr Insulin Aspart (Novolog Vial Sliding Scale -) 1 vial SQ ACHS [facility] PRN Reason: Protocol Last Admin: 07/22/16 12:27 Dose: 8 units Metoprolol Succinate (Toprol Xl -) 100 mg PO DAILY [facility] Last Admin: 07/22/16 11:04 Dose: 100 mg Nifedipine (Procardia Xl -) 60 mg PO BID [facility] Last Admin: 07/22/16 09:32 Dose: Not Given A/P 85 year old woman with PMhx of CKD, Hypertension, CAD, NIDDM who presented from [facility] with tachycardia, SOB and LE swelling and found to have Afib with RVR and CHF with worsening Cr in setting of IV diuretics. #JET on CKD Etiology likely from renal hypoperufison in setting of IV diuretics and relative hypotension Check Urine studies Hold lasix for now, unless pt becomes acutely SOB Dose all meds for Cr Cl less then 20 avoid nsaids, ravinder/arb for now #Hyponatremia from hypervolemia/CHF Trend Na for now no indication for hypetonic saline #New Afib on Heparin gtt Rate control as per Cardiology #Hypertension now with mild Hypotension Hold Nifedpine for now Trend BP ON metoprolol alone #Normocytic Anemia check iron studies #DM type 2 on Glipizide Thank for this referral Will follow Moises Kirkland DO
--- NOTE | 2016-07-22 12:56 | PN ---
Progress Note, Physician History of Present Illness: sob palpitations hr 140 patient brought by family to the er PMH s/p 2 drug-eluting (Promus) coronary stents in LAD 2009 Non-obstructive 3 VD on 07/2012 coronary angiogram s/p cataract surgery Ongoing medical problems angina CAD: s/p 2 DEStents to mid-LAD 08/2009 at [facility] by Dr. Ramirze Cor angiogram 07/2012: LM 30stial; prox and midLAD stent sites patent; distal LAD 30% ostial LCx 50% mid LCx 30% RCA prox 30% OM3 40%. Diabetes mellitus, type II Gout Hypercholesterolemia Hyperlipidemia IgM monoclonal gammopathy; anemia overweight Meds Allopurinol 300 MG Oral Tablet Aspirin 81 MG Oral Tablet Delayed Release Atorvastatin Calcium (Lipitor) 80 MG Oral Tablet Atorvastatin Calcium 40 MG Oral Tablet Clopidogrel Bisulfate (Plavix) 75 MG Oral Tablet Colchicine 0.6 MG Oral Tablet Losartan Potassium 25 MG Oral Tablet MetFORMIN HCl 500 MG Oral Tablet Metoprolol Succinate (Metoprolol Succinate ER) 100 MG Oral Tablet Extended Release 24 Hour Nifedipine (NIFEdipine ER) 60 MG Oral Tablet Extended Release 24 Hour Nifedipine (Procardia XL) 60 MG Oral Tablet Extended Release 24 Hour ECHO Name: Mahesh Fatima Date: June 15, 2016 Referring MD: Diagnosis: HTN Aortic Root Normal Tricuspid Valve Normal Pericardium Normal Pulmonary artery Normal Pulmonic Valve Normal Aortic Valve Normal Left Ventricle Normal Right Ventricle Normal Pulmonic veins Not recorded Mitral Annulus Normal Mitral Leaflets Moderately Thickened Right Atrium Normal Left Atrium Moderate Enlargement Inferior vena cava Not recorded Aortic valve: AR = None Mitral valve: MR = Mild Pulmonic valve: [place] = Mild Tricuspid valve TR= Mild SUMMARY 1. Normal left ventricular ejection fraction. 2. No regional wall motion abnormalities. 3. Abnormal diastolic compliance of the left ventricle. 4. Mild left ventricular hypertrophy. 5. Moderate left atrial enlargement. 6. Mild pulmonic valve regurgitation. 7. Moderately thickened mitral valve leaflets. 8. Mild mitral valve regurgitation. 9. Mild tricuspid valve regurgitation with normal right ventricle systolic pressure - Current Medication List Current Medications: Active Medications Albuterol Sulfate (Ventolin 0.083% Nebulizer Soln -) 1 amp NEB Q6H PRN PRN Reason: SHORT OF BREATH/WHEEZING Last Admin: 07/21/16 22:19 Dose: 1 amp Allopurinol (Zyloprim -) 100 mg PO BID [facility] Last Admin: 07/22/16 09:32 Dose: 100 mg Aspirin (Asa -) 81 mg PO DAILY [facility] Last Admin: 07/22/16 09:32 Dose: 81 mg Glipizide (Glucotrol Xl -) 5 mg PO AM [facility] Last Admin: 07/22/16 07:01 Dose: 5 mg Glipizide (Glucotrol Xl -) 2.5 mg PO DAILY@1630 [facility] Last Admin: 07/21/16 17:46 Dose: 2.5 mg Heparin Sodium (Porcine) (Heparin -) 1,000 unit IVPUSH PRN PRN PRN Reason: Heparin Last Admin: 07/21/16 11:27 Dose: 1,000 unit Heparin Sodium (Porcine) (Heparin -) 5,000 unit IVPUSH PRN PRN PRN Reason: Heparin Heparin Sodium (Porcine) 25, (000 unit/ Sodium Chloride) 500 mls @ 20 mls/hr IV TITR ROBI; 1,000 UNIT/HR PRN Reason: Protocol Last Admin: 07/22/16 04:19 Dose: 24 mls/hr Insulin Aspart (Novolog Vial Sliding Scale -) 1 vial SQ ACHS [facility] PRN Reason: Protocol Last Admin: 07/22/16 12:27 Dose: 8 units Metoprolol Succinate (Toprol Xl -) 100 mg PO DAILY [facility] Last Admin: 07/22/16 11:04 Dose: 100 mg Nifedipine (Procardia Xl -) 60 mg PO BID [facility] Last Admin: 07/22/16 09:32 Dose: Not Given - Objective Vital Signs: Vital Signs Temperature 98.4 F 07/22/16 10:00 Pulse Rate 65 07/22/16 10:00 Respiratory Rate 20 07/22/16 10:00 Blood Pressure 108/52 07/22/16 10:00 O2 Sat by Pulse Oximetry (%) 94 L 07/21/16 22:00 Eyes: Yes: WNL, Conjunctiva Clear, EOM Intact HENT: Yes: WNL, Atraumatic, Normocephalic Neck: Yes: WNL, Supple, Trachea Midline Cardiovascular: Yes: WNL, Regular Rate and Rhythm Respiratory: Yes: WNL, Regular, CTA Bilaterally Gastrointestinal: Yes: WNL, Normal Bowel Sounds Genitourinary: Yes: WNL Musculoskeletal: Yes: WNL Extremities: Yes: WNL Edema: No Integumentary: Yes: WNL Neurological: Yes: WNL, Alert, Oriented ...Motor Strength: WNL Psychiatric: Yes: WNL Labs: CBC, BMP 07/22/16 06:00 07/21/16 07:00 INR, PTT INR 1.12 (0.82-1.09) 07/21/16 18:38 Problem List - Problems (1) CAD (coronary artery disease) Code(s): I25.10 - ATHSCL HEART DISEASE OF [place] CORONARY ARTERY W/O ANG PCTRS (2) Chronic diastolic (congestive) heart failure Code(s): I50.32 - CHRONIC DIASTOLIC (CONGESTIVE) HEART FAILURE (3) Diabetes Code(s): E11.9 - TYPE 2 DIABETES MELLITUS WITHOUT COMPLICATIONS (4) HTN (hypertension) Code(s): I10 - ESSENTIAL (PRIMARY) HYPERTENSION (5) Hyperlipidemia Code(s): E78.5 - HYPERLIPIDEMIA, UNSPECIFIED (6) Hyponatremia with decreased serum osmolality Code(s): E87.1 - HYPO-OSMOLALITY AND HYPONATREMIA Assessment/Plan atrial tachycardia 2;1 block in sr now CHF diastolic acute angina CAD: s/p [facility] Cor angiogram 07/2012: LM 30stial; prox and midLAD stent sites patent; distal LAD 30% ostial LCx 50% mid LCx 30% RCA prox 30% OM3 40%. 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 d/c iv heparin
[2016-07-22] MEDS ORDERED: RIVAROXABAN 15 MG TABLET PO SCH (13:30)
--- NOTE | 2016-07-22 13:36 | PN ---
Progress Note (short form) - Note Progress Note: due to interaction between noac and cardizem will d/c cardizem and restart nifedipine Problem List - Problems (1) CAD (coronary artery disease) Code(s): I25.10 - ATHSCL HEART DISEASE OF [place] CORONARY ARTERY W/O ANG PCTRS (2) Chronic diastolic (congestive) heart failure Code(s): I50.32 - CHRONIC DIASTOLIC (CONGESTIVE) HEART FAILURE (3) Diabetes Code(s): E11.9 - TYPE 2 DIABETES MELLITUS WITHOUT COMPLICATIONS (4) HTN (hypertension) Code(s): I10 - ESSENTIAL (PRIMARY) HYPERTENSION (5) Hyperlipidemia Code(s): E78.5 - HYPERLIPIDEMIA, UNSPECIFIED (6) Hyponatremia with decreased serum osmolality Code(s): E87.1 - HYPO-OSMOLALITY AND HYPONATREMIA
[2016-07-22] MEDS: RIVAROXABAN 15 MG TABLET PO SCH (16:41)
--- NOTE | 2016-07-22 16:42 | PN ---
Progress Note, Physician Chief Complaint: in bed still some SOB on/off better with lasix IV and nebs on/off chronic LBP cardioverted to SR - Current Medication List Current Medications: Active Medications Albuterol Sulfate (Ventolin 0.083% Nebulizer Soln -) 1 amp NEB Q6H PRN PRN Reason: SHORT OF BREATH/WHEEZING Last Admin: 07/21/16 22:19 Dose: 1 amp Allopurinol (Zyloprim -) 100 mg PO BID [facility] Last Admin: 07/22/16 09:32 Dose: 100 mg Aspirin (Asa -) 81 mg PO DAILY [facility] Last Admin: 07/22/16 09:32 Dose: 81 mg Glipizide (Glucotrol Xl -) 5 mg PO AM [facility] Last Admin: 07/22/16 07:01 Dose: 5 mg Glipizide (Glucotrol Xl -) 2.5 mg PO DAILY@1630 [facility] Last Admin: 07/21/16 17:46 Dose: 2.5 mg Insulin Aspart (Novolog Vial Sliding Scale -) 1 vial SQ ACHS [facility] PRN Reason: Protocol Last Admin: 07/22/16 12:27 Dose: 8 units Metoprolol Succinate (Toprol Xl -) 100 mg PO DAILY [facility] Last Admin: 07/22/16 11:04 Dose: 100 mg Nifedipine (Procardia Xl -) 60 mg PO BID [facility] Rivaroxaban (Xarelto -) 15 mg PO DAILY [facility] - Objective Vital Signs: Vital Signs Temperature 98.1 F 07/22/16 14:34 Pulse Rate 62 07/22/16 14:34 Respiratory Rate 18 07/22/16 14:34 Blood Pressure 108/69 07/22/16 14:34 O2 Sat by Pulse Oximetry (%) 94 L 07/21/16 22:00 Constitutional: Yes: No Distress, Calm Eyes: Yes: Conjunctiva Clear HENT: Yes: Atraumatic Neck: Yes: Supple Cardiovascular: Yes: Regular Rate and Rhythm Respiratory: Yes: Diminished Gastrointestinal: Yes: Soft. No: Distention, Tenderness Genitourinary: No: CVA Tenderness - Left, CVA Tenderness - Right Musculoskeletal: No: Joint Stiffness, Joint Swelling Extremities: No: Cold, Cool Edema: Yes (less, pedal edema) Integumentary: No: Rash, Venous Stasis Changes Neurological: Yes: WNL, Alert, Oriented ...Motor Strength: WNL Psychiatric: Yes: WNL, Alert, Oriented. No: Agitated, Suicidal Ideation Labs: CBC, BMP 07/22/16 06:00 07/21/16 07:00 INR, PTT INR 1.12 (0.82-1.09) 07/21/16 18:38 - ....Imaging Other: Report Reviewed Assessment/Plan The patient is a 85 year old female with a significant past medical history of [place], CAD s/p stents, CHF, NIDDM, renal insufficiency, and HTN, who presents to the emergency department with tachycardia and shortness of breath and pedal edema, found to be in new onset rapid AFib and acute on chronic renal failure admit to monitored unit telemetry or ICU IV heparin; might need IV cardizem for HR control received lasix iv, will f/u labs and CXR; if worsening renal fct will call renal eval cardiology eval falls decubs DVT pfx f/u labs, echo, TFTs diabetes control weight loss, diet d/w pt d/w pt and staff and pt's family at bedside (sister, brother in law) prognosis guarded t time 40 min
[2016-07-22] MEDS: glipiZIDE-XL 2.5 MG TAB.ER.24 PO SCH (16:52)
[2016-07-22 17:57] LABS: URINE APPEARANCE SLCLOUDY; URINE BILIRUBIN NEGATIVE (NEGATIVE); URINE BLOOD NEGATIVE (NEGATIVE); URINE COLOR YELLOW; URINE GLUCOSE (UA) NEGATIVE (NEGATIVE); URINE KETONE NEGATIVE (NEGATIVE); URINE NITRITE NEGATIVE (NEGATIVE); URINE PROTEIN NEGATIVE (NEGATIVE); URINE UROBILINOGEN NEGATIVE E.U./dl (0.2-1.0)
[2016-07-22 17:58] LABS: URINE LEUK ESTERASE TRACE (NEGATIVE)
[2016-07-22 19:14] LABS: URINE BACTERIA RARE /hpf (NONE SEEN); URINE HYALINE CAST 36 /lpf; URINE MUCUS RARE; URINE RBC 2 /hpf (0-3); URINE WBC 10 /hpf (3-5)
[2016-07-22] MEDS ORDERED: FUROSEMIDE 40 MG/4 ML INJECTABLE VIAL IVPUSH ONE (20:00)
--- NOTE | 2016-07-22 20:09 | CON.GI ---
Consult Consult Specialty:: GI Referred by:: Dr. Margareth Woodard Reason for Consultation:: Elevated LFTs - History of Present Illness Chief Complaint: "I was short of breath and my heart was beating at 140" History of Present Illness: 85F admitted to [facility] for evaluation of SOB and palpitations. She was noted to be in A. Fib, initially on heparin drip now changed to Xarelto. Called to evaluate abnormal LFTs. 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 She otherwise denies a personal history of liver disease. She denies abdominal pain, nausea, vomiting , jaundiced episodes in the past. She believes that she had a colonoscopy 5 years ago that was "OK".Abdominal US revealed normal appeaing liver, GB, and CBD of 3mm. There is no family history of colon cancer, liver cancer. - History Source History Provided By: Patient Limitations to Obtaining History: No Limitations - Past Medical History Cardio/Vascular: Yes: CAD, CHF, HTN Renal/: Yes: Renal Inusuff ...: No Musculoskeletal: Yes: Chronic low back pain, Osteoarthritis Endocrine: Yes: Diabetes Mellitus - Past Surgical History Past Surgical History: Yes: Joint Replacement (b/l TKR, partial thyroidectomy) - Alcohol/Substance Use Hx Alcohol Use: No History of Substance Use: reports: None - Smoking History Smoking history: Never smoked Have you smoked in the past 12 months: No Aproximately how many cigarettes per day: 0 - Social History Usual Living Arrangement: Alone ADL: Independent Occupation: Retired RN Place of : Other ([employer]) Came to [place]year[place] over 30 years ago History of Recent Travel: No Home Medications - Allergies Allergies/Adverse Reactions: Allergies Allergy/AdvReac Type Severity Reaction Status Date / Time No Known Allergies Allergy Verified 07/20/16 15:53 - Home Medications Home Medications: Ambulatory Orders Allopurinol [Zyloprim -] 100 mg PO BID 09/20/15 Aspirin [Cheo Chewable Aspirin] 81 mg PO DAILY 09/20/15 Atorvastatin Ca [Lipitor] 40 mg PO HS 09/20/15 Clopidogrel Bisulfate [Plavix -] 75 mg PO DAILY 09/20/15 Glipizide [Glipizide ER] 2.5 mg PO HS 09/20/15 Glipizide [Glipizide ER] 5 mg PO DAILY 09/20/15 Metoprolol Succinate [Toprol XL -] 100 mg PO DAILY 09/20/15 Nifedipine ER [Procardia XL -] 60 mg PO BID 09/20/15 Family Disease History - Family Disease History Family Disease History: Other: Father ( 86: "sepsis"), Mother ( 97 "old age") Other Family History: 13 siblings, 4 : 3 from ? diabetic complications, 1 from CKD/heart Dz Review of Systems - Review of Systems Constitutional: denies: Chills Cardiovascular: reports: Shortness of Breath Respiratory: reports: Cough, Wheezing Gastrointestinal: denies: Abdominal Pain, Melena, Nausea, Vomiting Physical Exam-GI Vital Signs: Vital Signs Temperature 97.9 F 07/22/16 17:04 Pulse Rate 62 07/22/16 17:04 Respiratory Rate 18 07/22/16 17:04 Blood Pressure 107/45 07/22/16 17:04 O2 Sat by Pulse Oximetry (%) 94 L 07/21/16 22:00 Constitutional: Yes: Calm Eyes: No: Sclera Icterus Cardiovascular: Yes: Regular Rate and Rhythm. No: Murmur Respiratory: Yes: Rhonchi (right base), Tachypnea, Wheezes (bilaterally) Gastrointestinal Inspection: No: Distention, Scars ...Auscultate: Yes: Normoactive Bowel Sounds ...Palpate: No: Hepatomegaly, Splenomegaly, Tenderness ...Percussion: No: Tympanitic ...Rectal Exam: Yes: Guaiac Negative (light brown stool) Edema: Yes (trace LE edema b/l) Neurological: Yes: Alert, Oriented Labs: CBC, BMP 07/22/16 06:00 07/21/16 07:00 INR, PTT INR 1.12 (0.82-1.09) 07/21/16 18:38 Laboratory Tests 09/20/15 07/20/16 07/21/16 10:23 16:40 07:00 Ferritin Total Bilirubin 0.5 D 0.5 1.2 H D AST 32 D 100 H D 103 H ALT 40 123 H D 147 H Alkaline Phosphatase 112 196 H D 170 H Creatine Kinase 247 H 07/21/16 07:00 Ferritin 796.580 H Total Bilirubin AST ALT Alkaline Phosphatase Creatine Kinase Problem List - Problems (1) Abnormal liver enzymes Assessment/Plan: Asymptomatic in nature ? if secondary to CHF/Passive congestion ? if underlying liver disease however LFT's 2016 did noit relfect this Ferritin is elevated. Will need to be repeated along with TIBC and ferritin. If elevated hemochromatoisis gene mutation assay can be obtained. hepatitis serologies are pending. I added a Hep C ab Non contrast MRI of the abdomen to evaluate hepatic parenchyma further when patient can tolerate. Code(s): R74.8 - ABNORMAL LEVELS OF OTHER SERUM ENZYMES (2) Anemia Assessment/Plan: Likely multifactorial When her acute medical issues are resolved and A/C can be held, we discussed EGD /Colonoscopy to exclude any GI source of anemia Code(s): D64.9 - ANEMIA, UNSPECIFIED (3) Shortness of breath Assessment/Plan: Advised her nurse Ms. Chapman was tachypnic. Ordered CXR and advised she call cuff setter Code(s): R06.02 - SHORTNESS OF BREATH
[2016-07-22] MEDS: ALBUTEROL SO4 0.083% IH SOL 2.5 MG/3 ML VIAL.NEB. NEB PRN (22:22)
[2016-07-23 00:09] LABS: HEP B SURFACE AB Non Reactive (.)
[2016-07-23] MEDS: INSULIN SLIDING SCALE (NOVOLOG) 1 VIAL SQ SCH ×4 (06:09→21:39)
[2016-07-23 07:28] LABS: BASOPHIL 0.3 % (0-2.0); EOSINOPHIL 0.3 % (0-4.5); MCH 31.1 pg (25.7-33.7); MCHC 34.1 g/dl (32.0-36.0); MEAN CELL VOLUME 91.4 fl (80-96); MEAN PLT VOLUME 9.2 fl (7.5-11.1); PLATELET COUNT 231 K/MM3 (134-434); RDW 14.8 % (11.6-15.6); WHITE BLOOD COUNT 10.6 K/mm3 (4.0-10.0)
[2016-07-23 07:55] LABS: ALBUMIN 3.2 g/dl (3.4-5.0); CALCIUM 8.5 mg/dL (8.5-10.1); MAGNESIUM 2.3 mg/dL (1.8-2.4)
[2016-07-23 08:00] LABS: BILIRUBIN,TOTAL 0.6 mg/dL (0.2-1.0); COCKROFT - GAULT 16.2095; CREATININE 3.2 mg/dL (0.55-1.02); PHOSPHOROUS 6.4 mg/dL (2.5-4.9); TOT PROT 6.9 g/dl (6.4-8.2)
[2016-07-23] MEDS: glipiZIDE-XL 5 MG TAB.ER.24 PO SCH (08:41)
[2016-07-23] MEDS ORDERED: PT OWN MED DRAWER 7, Y5N ONE ×2 (09:05→23:02)
[2016-07-23] MEDS: NIFEdipine E.R 60 MG TABLET (UD) PO SCH (09:54)
[2016-07-23] MEDS: ALLOPURINOL 100 MG TABLET (FP) PO SCH ×2 (09:55→21:39)
[2016-07-23] MEDS: METOPROLOL SUCCINATE 100 MG TAB.SR.24H (FP) PO SCH (09:55)
[2016-07-23] MEDS: ASPIRIN 81 MG CHEWABLE TABLETS PO SCH (09:55)
[2016-07-23] MEDS ORDERED: RANITIDINE HCL 150 MG TABLET (FP) PO SCH (10:00)
--- NOTE | 2016-07-23 10:19 | PN ---
Progress Note, Physician Chief Complaint: less SOB; creatinine going up 2.3 and tday 3.2 renal called; lasix held also high LFTs and going up liver US unremarkable; GI consult appreciated - Current Medication List Current Medications: Active Medications Albuterol Sulfate (Ventolin 0.083% Nebulizer Soln -) 1 amp NEB Q6H PRN PRN Reason: SHORT OF BREATH/WHEEZING Last Admin: 07/22/16 22:22 Dose: 1 amp Allopurinol (Zyloprim -) 100 mg PO BID [facility] Last Admin: 07/23/16 09:55 Dose: 100 mg Aspirin (Asa -) 81 mg PO DAILY [facility] Last Admin: 07/23/16 09:55 Dose: 81 mg Glipizide (Glucotrol Xl -) 5 mg PO AM [facility] Last Admin: 07/23/16 08:41 Dose: 5 mg Glipizide (Glucotrol Xl -) 2.5 mg PO DAILY@1630 [facility] Last Admin: 07/22/16 16:52 Dose: 2.5 mg Insulin Aspart (Novolog Vial Sliding Scale -) 1 vial SQ ACHS [facility] PRN Reason: Protocol Last Admin: 07/23/16 06:09 Dose: 2 units Metoprolol Succinate (Toprol Xl -) 100 mg PO DAILY [facility] Last Admin: 07/23/16 09:55 Dose: 100 mg Nifedipine (Procardia Xl -) 60 mg PO BID [facility] Last Admin: 07/23/16 09:54 Dose: 60 mg Ranitidine HCl (Zantac -) 150 mg PO DAILY [facility] Last Admin: 07/23/16 09:55 Dose: 150 mg Rivaroxaban (Xarelto -) 15 mg PO DAILY [facility] Last Admin: 07/22/16 16:41 Dose: 15 mg - Objective Vital Signs: Vital Signs Temperature 98.6 F 07/23/16 07:00 Pulse Rate 75 07/23/16 07:00 Respiratory Rate 18 07/23/16 07:00 Blood Pressure 101/47 07/23/16 07:00 O2 Sat by Pulse Oximetry (%) 94 L 07/21/16 22:00 Constitutional: Yes: No Distress, Calm Eyes: Yes: Conjunctiva Clear HENT: Yes: Atraumatic Neck: Yes: Supple Cardiovascular: Yes: Regular Rate and Rhythm Respiratory: Yes: CTA Bilaterally Gastrointestinal: Yes: Soft. No: Distention, Tenderness Genitourinary: No: CVA Tenderness - Left, CVA Tenderness - Right, Hematuria Musculoskeletal: No: Joint Stiffness, Joint Swelling Extremities: No: Cold, Cool Edema: Yes (less) Integumentary: No: Rash, Venous Stasis Changes Neurological: Yes: WNL, Alert, Oriented ...Motor Strength: WNL Psychiatric: Yes: WNL, Alert, Oriented. No: Agitated, Suicidal Ideation Labs: CBC, BMP 07/23/16 06:20 07/23/16 06:20 INR, PTT INR 1.12 (0.82-1.09) 07/21/16 18:38 - ....Imaging Other: Report Reviewed Assessment/Plan The patient is a 85 year old female with a significant past medical history of NH, CAD s/p stents, CHF, NIDDM, renal insufficiency, and HTN, who presents to the emergency department with tachycardia and shortness of breath and pedal edema, found to be in new onset rapid AFib and acute on chronic renal failure admit to monitored unit telemetry or ICU IV heparin; might need IV cardizem for HR control received lasix iv, will f/u labs and CXR; renal eval appreciated and d/w dr Kirkland; hold lasix; check chest CT r/o PNA and abomen CT r/o hydronephrosis cardiology consult appreciated high LFTs GI f/u falls decubs DVT pfx f/u labs, echo, TFTs diabetes control weight loss, diet d/w pt d/w pt and staff and pt's family at bedside (sister, brother in law) prognosis guarded t time 35 min
--- NOTE | 2016-07-23 11:11 | PN ---
Progress Note, Physician History of Present Illness: seen and examined today in nad. seen by GI yesterday afternoon felt to be in pulm edema, thus was given 1 dose IV lasix last night. bun/creat lety today. Pt states her sob improved from yesterday. - Current Medication List Current Medications: Active Medications Albuterol Sulfate (Ventolin 0.083% Nebulizer Soln -) 1 amp NEB Q6H PRN PRN Reason: SHORT OF BREATH/WHEEZING Last Admin: 07/22/16 22:22 Dose: 1 amp Allopurinol (Zyloprim -) 100 mg PO BID [facility] Last Admin: 07/23/16 09:55 Dose: 100 mg Aspirin (Asa -) 81 mg PO DAILY [facility] Last Admin: 07/23/16 09:55 Dose: 81 mg Glipizide (Glucotrol Xl -) 5 mg PO AM [facility] Last Admin: 07/23/16 08:41 Dose: 5 mg Glipizide (Glucotrol Xl -) 2.5 mg PO DAILY@1630 [facility] Last Admin: 07/22/16 16:52 Dose: 2.5 mg Insulin Aspart (Novolog Vial Sliding Scale -) 1 vial SQ ACHS [facility] PRN Reason: Protocol Last Admin: 07/23/16 06:09 Dose: 2 units Metoprolol Succinate (Toprol Xl -) 100 mg PO DAILY [facility] Last Admin: 07/23/16 09:55 Dose: 100 mg Nifedipine (Procardia Xl -) 60 mg PO BID [facility] Last Admin: 07/23/16 09:54 Dose: 60 mg Ranitidine HCl (Zantac -) 150 mg PO DAILY [facility] Last Admin: 07/23/16 09:55 Dose: 150 mg Rivaroxaban (Xarelto -) 15 mg PO DAILY [facility] Last Admin: 07/22/16 16:41 Dose: 15 mg - Objective Vital Signs: Vital Signs Temperature 98.6 F 07/23/16 07:00 Pulse Rate 75 07/23/16 07:00 Respiratory Rate 18 07/23/16 07:00 Blood Pressure 101/47 07/23/16 07:00 O2 Sat by Pulse Oximetry (%) 94 L 07/21/16 22:00 Constitutional: Yes: No Distress, Calm, Obese Eyes: Yes: WNL, Conjunctiva Clear, EOM Intact, PERRL HENT: Yes: WNL, Atraumatic, Normocephalic Neck: Yes: WNL, Supple, Trachea Midline Cardiovascular: Yes: Regular Rate and Rhythm, S1, S2. No: Bradycardia, Tachycardia, Pulse Irregular, Bruit, JVD, Gallop, Murmur, Rub, S3, S4, Varicosities Respiratory: Yes: Regular. No: Rales, Rhonchi, Wheezes Gastrointestinal: Yes: Normal Bowel Sounds, Soft. No: Distention, Tenderness Edema: Yes Edema: LLE: 2+, RLE: 2+ Peripheral Pulses WNL: Yes Peripheral Pulses: Left Doralis Pedis: 2+, Right Dorsalis Pedis: 2+ Integumentary: Yes: WNL Neurological: Yes: Alert, Oriented Psychiatric: Yes: Alert, Oriented Labs: CBC, BMP 07/23/16 06:20 07/23/16 06:20 INR, PTT INR 1.12 (0.82-1.09) 07/21/16 18:38 - ....Imaging Chest X-ray: Report Reviewed, Image Reviewed EKG: Report Reviewed, Image Reviewed Other: Report Reviewed, Image Reviewed (tele-nsr, pvcs, artifact) Assessment/Plan 85 year old woman with a history of HTN, HLD, DMII, CAD s/p IDRIS mLAD 2009, patient stents and non-obs CAD on cath 2012, obesity, admitted with tachycardia , sob, palpitations found to be in SVT has since returned to NSR. SOB-uncertain etiology, acute on chronic diastolic CHF, PNA -given 1 dose of IV lasix last night after reported that pt had rales and sob by staff -Cxr read as L infiltrate -recent echo showed normal LV systolic function, no sig valvular abnl, evidence of diastolic dysfunction -she does have LE edema but no sig pulm edema on exam or imaging -would stop diuresis for now especially in light of rising bun/creat, appears to be developing intravascular depletion -d/w nephrology, plan to check a CT chest today to further evaluate pulm process -LE edema may be secondary to nifedipine, and as BP is low normal and relatively hypotensive for pts baseline will dc nifedipine, if develops uncontrolled HTN will consider Hydralazine or Labetalol Arrhythmia-presumed Atrial tachycardia, also mention of possible atrial flutter in notes -has been in NSR -cont Toprol -on Xarelto presumably for consideration for aflutteer CAD-stents and caths as above -cont ASA and toprol -hold off on statin for now due to elevated LFTs
--- NOTE | 2016-07-23 11:18 | PN ---
Progress Note (short form) - Note Progress Note: Renal Follow up for JET Pt seen and examine at the bedside pt give IV Lasix last night for lung congestion CXR showed possible infiltrate has mild sob this am legs remains swollen Vital Signs Temperature 98.6 F 07/23/16 07:00 Pulse Rate 75 07/23/16 07:00 Respiratory Rate 18 07/23/16 07:00 Blood Pressure 101/47 07/23/16 07:00 O2 Sat by Pulse Oximetry (%) 94 L 07/21/16 22:00 Intake & Output 07/20/16 07/21/16 07/22/16 07/23/16 23:59 23:59 23:59 23:59 Intake Total 256 790 200 Balance 256 790 200 Weight 164 lb 160 lb 170 lb Gen: NAD, awake and alert HEENT: NC/AT, No JVD CVS: RRR, No M/R Lungs: + rales LLL Abd: soft NT/ND Ext: 2+ edema CBC, BMP 07/23/16 06:20 07/23/16 06:20 Current Medications Albuterol Sulfate (Ventolin 0.083% Nebulizer Soln -) 1 amp NEB Q6H PRN PRN Reason: SHORT OF BREATH/WHEEZING Last Admin: 07/22/16 22:22 Dose: 1 amp Allopurinol (Zyloprim -) 100 mg PO BID [facility] Last Admin: 07/23/16 09:55 Dose: 100 mg Aspirin (Asa -) 81 mg PO DAILY [facility] Last Admin: 07/23/16 09:55 Dose: 81 mg Glipizide (Glucotrol Xl -) 5 mg PO AM [facility] Last Admin: 07/23/16 08:41 Dose: 5 mg Glipizide (Glucotrol Xl -) 2.5 mg PO DAILY@1630 [facility] Last Admin: 07/22/16 16:52 Dose: 2.5 mg Insulin Aspart (Novolog Vial Sliding Scale -) 1 vial SQ ACHS [facility] PRN Reason: Protocol Last Admin: 07/23/16 06:09 Dose: 2 units Metoprolol Succinate (Toprol Xl -) 100 mg PO DAILY [facility] Last Admin: 07/23/16 09:55 Dose: 100 mg Ranitidine HCl (Zantac -) 150 mg PO DAILY [facility] Last Admin: 07/23/16 09:55 Dose: 150 mg Rivaroxaban (Xarelto -) 15 mg PO DAILY [facility] Last Admin: 07/22/16 16:41 Dose: 15 mg A/P 85 year old woman with PMhx of CKD, Hypertension, CAD, NIDDM who presented from [employer] office with tachycardia, SOB and LE swelling and found to have Afib with RVR and CHF with worsening Cr in setting of IV diuretics. #JET on CKD urine studies show renal hypoperfusion hold lasix for now check CT of the lung to r/o infiltrate Keep MAP> 65 d/c nifedpine as pt may have relative hypotension no ravinder or arb no IVF at this time until CHF is ruled out with CT Pt without significant proteinuria #Hyponatremia from hypervolemia Trend Na no hyperteonic saline #SOB from CHF vs. PNA Check lung CT hold lasix case discussed with Cardiology ECHO is normal No signficnat proteinuria ? etiology of LE edema -medication related? #New Afib on Heparin gtt Rate control as per Cardiology #Hypertension now with mild Hypotension d/c Nifedpine Moises Kirkland DO
[2016-07-23] MEDS ORDERED: INSULIN (NOVOLOG) ASPART 100 UNITS/ML 10ML VIAL ONE (11:36)
[2016-07-23] MEDS: RIVAROXABAN 15 MG TABLET PO SCH (11:53)
[2016-07-23] MEDS: CEFTRIAXONE 50 ML IVPB SCH (16:55)
[2016-07-23] MEDS: glipiZIDE-XL 2.5 MG TAB.ER.24 PO SCH (17:05)
[2016-07-24 06:41] LABS: SERUM IRON 42 ug/dL (27-139); TOTAL IRON BINDING CAPACITY 205 ug/dL (250-450); UIBC 163 ug/dL (118-369)
[2016-07-24] MEDS: glipiZIDE-XL 5 MG TAB.ER.24 PO SCH (06:41)
[2016-07-24] MEDS: INSULIN SLIDING SCALE (NOVOLOG) 1 VIAL SQ SCH ×4 (07:01→21:22)
[2016-07-24 07:22] LABS: BASOPHIL 0.4 % (0-2.0); MCH 30.3 pg (25.7-33.7); MCHC 33.2 g/dl (32.0-36.0); MEAN CELL VOLUME 91.2 fl (80-96); MEAN PLT VOLUME 9.3 fl (7.5-11.1); NEUTROPHILS 74.9 % (42.8-82.8); PLATELET COUNT 228 K/MM3 (134-434); RDW 14.5 % (11.6-15.6); WHITE BLOOD COUNT 9.5 K/mm3 (4.0-10.0)
[2016-07-24 07:36] LABS: ALBUMIN 2.9 g/dl (3.4-5.0); CALCIUM 8.4 mg/dL (8.5-10.1); COCKROFT - GAULT 16.7365; CREATININE 3.1 mg/dL (0.55-1.02); MAGNESIUM 2.4 mg/dL (1.8-2.4); PHOSPHOROUS 6.6 mg/dL (2.5-4.9)
[2016-07-24 07:38] LABS: BILIRUBIN,TOTAL 0.4 mg/dL (0.2-1.0); TOT PROT 6.4 g/dl (6.4-8.2)
--- NOTE | 2016-07-24 09:26 | PN ---
Progress Note, Physician - Current Medication List Current Medications: Active Medications Albuterol Sulfate (Ventolin 0.083% Nebulizer Soln -) 1 amp NEB Q6H PRN PRN Reason: SHORT OF BREATH/WHEEZING Last Admin: 07/22/16 22:22 Dose: 1 amp Allopurinol (Zyloprim -) 100 mg PO BID [facility] Last Admin: 07/23/16 21:39 Dose: 100 mg Aspirin (Asa -) 81 mg PO DAILY [facility] Last Admin: 07/23/16 09:55 Dose: 81 mg Glipizide (Glucotrol Xl -) 5 mg PO AM [facility] Last Admin: 07/24/16 06:41 Dose: 5 mg Glipizide (Glucotrol Xl -) 2.5 mg PO DAILY@1630 [facility] Last Admin: 07/23/16 17:05 Dose: 2.5 mg Ceftriaxone Sodium (Rocephin 1gm Ivpb (Pre-Docked)) 50 mls @ 100 mls/hr IVPB DAILY [facility] Last Admin: 07/23/16 16:55 Dose: 100 mls/hr Insulin Aspart (Novolog Vial Sliding Scale -) 1 vial SQ ACHS [facility] PRN Reason: Protocol Last Admin: 07/24/16 07:01 Dose: Not Given Metoprolol Succinate (Toprol Xl -) 100 mg PO DAILY [facility] Last Admin: 07/23/16 09:55 Dose: 100 mg Ranitidine HCl (Zantac -) 150 mg PO DAILY [facility] Last Admin: 07/23/16 09:55 Dose: 150 mg Rivaroxaban (Xarelto -) 15 mg PO DAILY [facility] Last Admin: 07/23/16 11:53 Dose: 15 mg - Objective Vital Signs: Vital Signs Temperature 98.4 F 07/24/16 06:56 Pulse Rate 78 07/24/16 06:56 Respiratory Rate 20 07/24/16 06:56 Blood Pressure 101/65 07/24/16 06:56 O2 Sat by Pulse Oximetry (%) 97 07/23/16 22:00 Labs: CBC, BMP 07/24/16 06:15 07/24/16 06:15 INR, PTT INR 1.12 (0.82-1.09) 07/21/16 18:38 Assessment/Plan 85 year old woman with a history of HTN, HLD, DMII, CAD s/p IDRIS mLAD 2009, patient stents and non-obs CAD on cath 2012, obesity, admitted with tachycardia , sob, palpitations found to be in SVT has since returned to NSR. SOB-uncertain etiology, acute on chronic diastolic CHF, PNA -CT chest done yesterday showed large bilateral patchy infiltrates -consider pulmonary evaluation -Hold further Lasix at this time -Nifedipine being considered as possible source of LE edema, monitor for improvement off nifedipine, improvement can take a few weeks, should be followed as outpatient -recent echo showed normal LV systolic function, no sig valvular abnl, evidence of diastolic dysfunction -HTN is adequately controlled currently without nifedipine, if needed can give trial of hydralazine or labetalol -will send influenza screening today Arrhythmia-presumed Atrial tachycardia, also mention of possible atrial flutter in notes -has been in NSR -cont Toprol -on Xarelto presumably for consideration for aflutter CAD-stents and caths as above -cont ASA and toprol -hold off on statin for now due to elevated LFTs
--- NOTE | 2016-07-24 09:43 | PN ---
Progress Note, Physician Chief Complaint: in bed nad no CP or SOB - Current Medication List Current Medications: Active Medications Albuterol Sulfate (Ventolin 0.083% Nebulizer Soln -) 1 amp NEB Q6H PRN PRN Reason: SHORT OF BREATH/WHEEZING Last Admin: 07/22/16 22:22 Dose: 1 amp Allopurinol (Zyloprim -) 100 mg PO BID [facility] Last Admin: 07/23/16 21:39 Dose: 100 mg Aspirin (Asa -) 81 mg PO DAILY [facility] Last Admin: 07/23/16 09:55 Dose: 81 mg Glipizide (Glucotrol Xl -) 5 mg PO AM [facility] Last Admin: 07/24/16 06:41 Dose: 5 mg Glipizide (Glucotrol Xl -) 2.5 mg PO DAILY@1630 [facility] Last Admin: 07/23/16 17:05 Dose: 2.5 mg Ceftriaxone Sodium (Rocephin 1gm Ivpb (Pre-Docked)) 50 mls @ 100 mls/hr IVPB DAILY [facility] Last Admin: 07/23/16 16:55 Dose: 100 mls/hr Insulin Aspart (Novolog Vial Sliding Scale -) 1 vial SQ ACHS [facility] PRN Reason: Protocol Last Admin: 07/24/16 07:01 Dose: Not Given Metoprolol Succinate (Toprol Xl -) 100 mg PO DAILY [facility] Last Admin: 07/23/16 09:55 Dose: 100 mg Ranitidine HCl (Zantac -) 150 mg PO DAILY [facility] Last Admin: 07/23/16 09:55 Dose: 150 mg Rivaroxaban (Xarelto -) 15 mg PO DAILY [facility] Last Admin: 07/23/16 11:53 Dose: 15 mg - Objective Vital Signs: Vital Signs Temperature 98.4 F 07/24/16 06:56 Pulse Rate 78 07/24/16 06:56 Respiratory Rate 20 07/24/16 06:56 Blood Pressure 101/65 07/24/16 06:56 O2 Sat by Pulse Oximetry (%) 97 07/23/16 22:00 Constitutional: Yes: No Distress, Calm Eyes: Yes: Conjunctiva Clear HENT: Yes: Atraumatic Neck: Yes: Supple Cardiovascular: Yes: Regular Rate and Rhythm Respiratory: Yes: CTA Bilaterally Gastrointestinal: Yes: Soft. No: Distention, Tenderness Genitourinary: No: CVA Tenderness - Left, CVA Tenderness - Right Musculoskeletal: No: Joint Stiffness, Joint Swelling Extremities: No: Cold, Cool Edema: No Peripheral Pulses WNL: Yes Integumentary: No: Rash, Venous Stasis Changes Neurological: Yes: WNL, Alert, Oriented ...Motor Strength: WNL Psychiatric: Yes: WNL, Alert, Oriented. No: Agitated Labs: CBC, BMP 07/24/16 06:15 07/24/16 06:15 INR, PTT INR 1.12 (0.82-1.09) 07/21/16 18:38 - ....Imaging Other: Report Reviewed Assessment/Plan The patient is a 85 year old female with a significant past medical history of NH, CAD s/p stents, CHF, NIDDM, renal insufficiency, and HTN, who presents to the emergency department with tachycardia and shortness of breath and pedal edema, found to be in new onset rapid AFib and acute on chronic renal failure received lasix iv, developed ARF/CRF; now lasix held, creat slightly better chest CT possible PNA started on IV ATB abdomen CT mild hydronephrosis, called cardiology consult appreciated high LFTs GI f/u, liver US negative; labs pending anemia w/u; spep upep pending falls decubs DVT pfx f/u labs, echo, TFTs diabetes control weight loss, diet d/w pt d/w pt and staff prognosis guarded t time 35 min
[2016-07-24] MEDS: ALLOPURINOL 100 MG TABLET (FP) PO SCH ×2 (10:26→21:12)
[2016-07-24] MEDS: CEFTRIAXONE 50 ML IVPB SCH (10:26)
[2016-07-24] MEDS: METOPROLOL SUCCINATE 100 MG TAB.SR.24H (FP) PO SCH (10:26)
[2016-07-24] MEDS: ASPIRIN 81 MG CHEWABLE TABLETS PO SCH (10:26)
[2016-07-24] MEDS: RIVAROXABAN 15 MG TABLET PO SCH (10:27)
[2016-07-24] MEDS: ALBUTEROL SO4 0.083% IH SOL 2.5 MG/3 ML VIAL.NEB. NEB PRN (12:00)
[2016-07-24] MEDS: glipiZIDE-XL 2.5 MG TAB.ER.24 PO SCH (18:32)
[2016-07-25] MEDS: glipiZIDE-XL 5 MG TAB.ER.24 PO SCH (06:26)
[2016-07-25] MEDS: INSULIN SLIDING SCALE (NOVOLOG) 1 VIAL SQ SCH ×4 (06:26→21:58)
[2016-07-25 08:04] LABS: BASOPHIL 0.5 % (0-2.0); EOSINOPHIL 1.1 % (0-4.5); MCH 30.2 pg (25.7-33.7); MCHC 33.3 g/dl (32.0-36.0); MEAN CELL VOLUME 90.8 fl (80-96); MEAN PLT VOLUME 8.7 fl (7.5-11.1); NEUTROPHILS 77.6 % (42.8-82.8); PLATELET COUNT 256 K/MM3 (134-434); RDW 14.8 % (11.6-15.6); WHITE BLOOD COUNT 7.2 K/mm3 (4.0-10.0)
[2016-07-25 08:35] LABS: CALCIUM 8.8 mg/dL (8.5-10.1); COCKROFT - GAULT 21.539; CREATININE 2.4 mg/dL (0.55-1.02); MAGNESIUM 2.5 mg/dL (1.8-2.4); PHOSPHOROUS 5.6 mg/dL (2.5-4.9)
[2016-07-25] MEDS: ASPIRIN 81 MG CHEWABLE TABLETS PO SCH (10:10)
[2016-07-25] MEDS: CEFTRIAXONE 50 ML IVPB SCH (10:10)
[2016-07-25] MEDS: METOPROLOL SUCCINATE 100 MG TAB.SR.24H (FP) PO SCH (10:10)
[2016-07-25] MEDS: ALLOPURINOL 100 MG TABLET (FP) PO SCH ×2 (10:10→21:58)
[2016-07-25] MEDS: RIVAROXABAN 15 MG TABLET PO SCH (10:11)
[2016-07-25 11:00] LABS: ALBUMIN 2.8 g/dl (3.4-5.0); BILIRUBIN,DIRECT 0.2 mg/dL (0.0-0.2); BILIRUBIN,TOTAL 0.3 mg/dL (0.2-1.0); TOT PROT 6.4 g/dl (6.4-8.2)
--- NOTE | 2016-07-25 11:04 | PN ---
Progress Note (short form) - Note Progress Note: Renal Follow up for JET Pt seen and examine at the bedside states that she feels better still has sob and LE edema no fever or chills Vital Signs Temperature 98.1 F 07/25/16 10:00 Pulse Rate 71 07/25/16 10:00 Respiratory Rate 20 07/25/16 10:00 Blood Pressure 131/59 07/25/16 10:00 O2 Sat by Pulse Oximetry (%) 95 07/24/16 22:00 Intake & Output 07/22/16 07/23/16 07/24/16 07/25/16 23:59 23:59 23:59 23:59 Intake Total 790 510 580 Output Total 2 Balance 790 510 580 -2 Weight 170 lb 169 lb 6 oz Gen: NAD, awake and alert HEENT: NC/AT, No JVD CVS: RRR, No M/R Lungs: + rales LLL Abd: soft NT/ND Ext: 2+ edema CBC, BMP 07/25/16 06:28 07/25/16 06:28 Laboratory Tests 07/25/16 06:28 Random Glucose 94 Calcium 8.8 Phosphorus 5.6 H Magnesium 2.5 H Current Medications Albuterol Sulfate (Ventolin 0.083% Nebulizer Soln -) 1 amp NEB Q6H PRN PRN Reason: SHORT OF BREATH/WHEEZING Last Admin: 07/24/16 12:00 Dose: 1 amp Allopurinol (Zyloprim -) 100 mg PO BID [facility] Last Admin: 07/25/16 10:10 Dose: 100 mg Aspirin (Asa -) 81 mg PO DAILY [facility] Last Admin: 07/25/16 10:10 Dose: 81 mg Glipizide (Glucotrol Xl -) 5 mg PO AM [facility] Last Admin: 07/25/16 06:26 Dose: 5 mg Glipizide (Glucotrol Xl -) 2.5 mg PO DAILY@1630 [facility] Last Admin: 07/24/16 18:32 Dose: Not Given Ceftriaxone Sodium (Rocephin 1gm Ivpb (Pre-Docked)) 50 mls @ 100 mls/hr IVPB DAILY [facility] Last Admin: 07/25/16 10:10 Dose: 100 mls/hr Insulin Aspart (Novolog Vial Sliding Scale -) 1 vial SQ ACHS [facility] PRN Reason: Protocol Last Admin: 07/25/16 06:26 Dose: Not Given Metoprolol Succinate (Toprol Xl -) 100 mg PO DAILY [facility] Last Admin: 07/25/16 10:10 Dose: 100 mg Rivaroxaban (Xarelto -) 15 mg PO DAILY [facility] Last Admin: 07/25/16 10:11 Dose: 15 mg A/P 85 year old woman with PMhx of CKD, Hypertension, CAD, NIDDM who presented from [employer] office with tachycardia, SOB and LE swelling and found to have Afib with RVR and CHF with worsening Cr in setting of IV diuretics. #JET on CKD urine studies show renal hypoperfusion Renal function improved after discontination of IV lasix pt however contniues to have edema and will need diuretics, however would hold for 1 more day and then restart with orals or less frequent IV diuretics hold BERNARDA/ARB trend BUN/Cr #Hyponatremia from hypervolemia Trend Na no hyperteonic saline #SOB from CHF vs. PNA Ct of the chest showed infiltrates on IV Rocephin consider pulmonary eval #New Afib on Heparin gtt Rate control as per Cardiology Moises Kirkland DO
--- NOTE | 2016-07-25 11:48 | PN ---
Progress Note, Physician History of Present Illness: sob palpitations hr 140 patient brought by family to the er PMH s/p 2 drug-eluting (Promus) coronary stents in LAD 2009 Non-obstructive 3 VD on 07/2012 coronary angiogram s/p cataract surgery Ongoing medical problems angina CAD: s/p 2 DEStents to mid-LAD 08/2009 at [facility] by Dr. Ramirez Cor angiogram 07/2012: LM 30stial; prox and midLAD stent sites patent; distal LAD 30% ostial LCx 50% mid LCx 30% RCA prox 30% OM3 40%. Diabetes mellitus, type II Gout Hypercholesterolemia Hyperlipidemia IgM monoclonal gammopathy; anemia overweight Meds Allopurinol 300 MG Oral Tablet Aspirin 81 MG Oral Tablet Delayed Release Atorvastatin Calcium (Lipitor) 80 MG Oral Tablet Atorvastatin Calcium 40 MG Oral Tablet Clopidogrel Bisulfate (Plavix) 75 MG Oral Tablet Colchicine 0.6 MG Oral Tablet Losartan Potassium 25 MG Oral Tablet MetFORMIN HCl 500 MG Oral Tablet Metoprolol Succinate (Metoprolol Succinate ER) 100 MG Oral Tablet Extended Release 24 Hour Nifedipine (NIFEdipine ER) 60 MG Oral Tablet Extended Release 24 Hour Nifedipine (Procardia XL) 60 MG Oral Tablet Extended Release 24 Hour ECHO Name: Mahesh Fatima Date: June 15, 2016 Referring MD: Diagnosis: HTN Aortic Root Normal Tricuspid Valve Normal Pericardium Normal Pulmonary artery Normal Pulmonic Valve Normal Aortic Valve Normal Left Ventricle Normal Right Ventricle Normal Pulmonic veins Not recorded Mitral Annulus Normal Mitral Leaflets Moderately Thickened Right Atrium Normal Left Atrium Moderate Enlargement Inferior vena cava Not recorded Aortic valve: AR = None Mitral valve: MR = Mild Pulmonic valve: UT = Mild Tricuspid valve TR= Mild SUMMARY 1. Normal left ventricular ejection fraction. 2. No regional wall motion abnormalities. 3. Abnormal diastolic compliance of the left ventricle. 4. Mild left ventricular hypertrophy. 5. Moderate left atrial enlargement. 6. Mild pulmonic valve regurgitation. 7. Moderately thickened mitral valve leaflets. 8. Mild mitral valve regurgitation. 9. Mild tricuspid valve regurgitation with normal right ventricle systolic pressure - Current Medication List Current Medications: Active Medications Albuterol Sulfate (Ventolin 0.083% Nebulizer Soln -) 1 amp NEB Q6H PRN PRN Reason: SHORT OF BREATH/WHEEZING Last Admin: 07/24/16 12:00 Dose: 1 amp Allopurinol (Zyloprim -) 100 mg PO BID [facility] Last Admin: 07/25/16 10:10 Dose: 100 mg Aspirin (Asa -) 81 mg PO DAILY [facility] Last Admin: 07/25/16 10:10 Dose: 81 mg Glipizide (Glucotrol Xl -) 5 mg PO AM [facility] Last Admin: 07/25/16 06:26 Dose: 5 mg Glipizide (Glucotrol Xl -) 2.5 mg PO DAILY@1630 [facility] Last Admin: 07/24/16 18:32 Dose: Not Given Ceftriaxone Sodium (Rocephin 1gm Ivpb (Pre-Docked)) 50 mls @ 100 mls/hr IVPB DAILY [facility] Last Admin: 07/25/16 10:10 Dose: 100 mls/hr Insulin Aspart (Novolog Vial Sliding Scale -) 1 vial SQ ACHS [facility] PRN Reason: Protocol Last Admin: 07/25/16 11:34 Dose: 4 units Metoprolol Succinate (Toprol Xl -) 100 mg PO DAILY [facility] Last Admin: 07/25/16 10:10 Dose: 100 mg Rivaroxaban (Xarelto -) 15 mg PO DAILY [facility] Last Admin: 07/25/16 10:11 Dose: 15 mg - Objective Vital Signs: Vital Signs Temperature 98.1 F 07/25/16 10:00 Pulse Rate 71 07/25/16 10:00 Respiratory Rate 20 07/25/16 10:00 Blood Pressure 131/59 07/25/16 10:00 O2 Sat by Pulse Oximetry (%) 95 07/24/16 22:00 Eyes: Yes: WNL, Conjunctiva Clear, EOM Intact HENT: Yes: WNL, Atraumatic, Normocephalic Neck: Yes: WNL, Supple, Trachea Midline Cardiovascular: Yes: WNL, Regular Rate and Rhythm Respiratory: Yes: WNL, Regular, CTA Bilaterally Gastrointestinal: Yes: WNL, Normal Bowel Sounds Genitourinary: Yes: WNL Musculoskeletal: Yes: WNL Extremities: Yes: WNL Edema: Yes Edema: LLE: 2+, RLE: 2+ Integumentary: Yes: WNL Neurological: Yes: WNL, Alert, Oriented ...Motor Strength: WNL Psychiatric: Yes: WNL Labs: CBC, BMP 07/25/16 06:28 07/25/16 06:28 INR, PTT INR 1.12 (0.82-1.09) 07/21/16 18:38 Problem List - Problems (1) CAD (coronary artery disease) Code(s): I25.10 - ATHSCL HEART DISEASE OF [place] CORONARY ARTERY W/O ANG PCTRS (2) Chronic diastolic (congestive) heart failure Code(s): I50.32 - CHRONIC DIASTOLIC (CONGESTIVE) HEART FAILURE (3) Diabetes Code(s): E11.9 - TYPE 2 DIABETES MELLITUS WITHOUT COMPLICATIONS (4) HTN (hypertension) Code(s): I10 - ESSENTIAL (PRIMARY) HYPERTENSION (5) Hyperlipidemia Code(s): E78.5 - HYPERLIPIDEMIA, UNSPECIFIED (6) Hyponatremia with decreased serum osmolality Code(s): E87.1 - HYPO-OSMOLALITY AND HYPONATREMIA Assessment/Plan atrial tachycardia 2;1 block in sr now CHF diastolic acute angina CAD: s/p 2 DEStents to mid-LAD 08/[address] [facility] by Dr[facility] Ramirez Cor angiogram 07/2012: LM 30stial; prox and midLAD stent sites patent; distal LAD 30% ostial LCx 50% mid LCx 30% RCA prox 30% OM3 40%. Diabetes mellitus, type II Gout Hypercholesterolemia Hyperlipidemia IgM monoclonal gammopathy; anemia overweight Plan [facility] xarelto 15 qhs cont toprol diuresis as per natalya.
--- NOTE | 2016-07-25 16:08 | PN ---
Progress Note, Physician Chief Complaint: OOB to chair feels better consults and tests appreciated - Current Medication List Current Medications: Active Medications Albuterol Sulfate (Ventolin 0.083% Nebulizer Soln -) 1 amp NEB Q6H PRN PRN Reason: SHORT OF BREATH/WHEEZING Last Admin: 07/24/16 12:00 Dose: 1 amp Allopurinol (Zyloprim -) 100 mg PO BID [facility] Last Admin: 07/25/16 10:10 Dose: 100 mg Aspirin (Asa -) 81 mg PO DAILY [facility] Last Admin: 07/25/16 10:10 Dose: 81 mg Glipizide (Glucotrol Xl -) 5 mg PO AM [facility] Last Admin: 07/25/16 06:26 Dose: 5 mg Glipizide (Glucotrol Xl -) 2.5 mg PO DAILY@1630 [facility] Last Admin: 07/24/16 18:32 Dose: Not Given Ceftriaxone Sodium (Rocephin 1gm Ivpb (Pre-Docked)) 50 mls @ 100 mls/hr IVPB DAILY [facility] Last Admin: 07/25/16 10:10 Dose: 100 mls/hr Insulin Aspart (Novolog Vial Sliding Scale -) 1 vial SQ ACHS [facility] PRN Reason: Protocol Last Admin: 07/25/16 11:34 Dose: 4 units Metoprolol Succinate (Toprol Xl -) 100 mg PO DAILY [facility] Last Admin: 07/25/16 10:10 Dose: 100 mg Rivaroxaban (Xarelto -) 15 mg PO DAILY [facility] Last Admin: 07/25/16 10:11 Dose: 15 mg - Objective Vital Signs: Vital Signs Temperature 98.9 F 07/25/16 14:50 Pulse Rate 71 07/25/16 14:50 Respiratory Rate 20 07/25/16 14:50 Blood Pressure 151/76 07/25/16 14:50 O2 Sat by Pulse Oximetry (%) 99 07/25/16 12:55 Constitutional: Yes: No Distress, Calm Eyes: Yes: Conjunctiva Clear HENT: Yes: Atraumatic Neck: Yes: Supple Cardiovascular: Yes: Regular Rate and Rhythm Respiratory: Yes: CTA Bilaterally Gastrointestinal: Yes: Soft. No: Distention, Tenderness Genitourinary: No: CVA Tenderness - Left, CVA Tenderness - Right Musculoskeletal: No: Joint Stiffness, Joint Swelling Extremities: No: Cold, Cool Edema: No Integumentary: No: Rash, Venous Stasis Changes Neurological: Yes: WNL, Alert, Oriented ...Motor Strength: WNL Psychiatric: Yes: WNL, Alert, Oriented. No: Agitated, Suicidal Ideation Labs: CBC, BMP 07/25/16 06:28 07/25/16 06:28 INR, PTT INR 1.12 (0.82-1.09) 07/21/16 18:38 - ....Imaging Other: Report Reviewed Assessment/Plan The patient is a 85 year old female with a significant past medical history of [place], CAD s/p stents, CHF, NIDDM, renal insufficiency, and HTN, who presents to the emergency department with tachycardia and shortness of breath and pedal edema, found to be in new onset rapid AFib and acute on chronic renal failure received lasix iv, developed ARF/CRF; now lasix held, creat slightly better chest CT c/w possible PNA - on IV ATB abdomen CT mild hydronephrosis, called abdomen MRI partially distended GB; GI f/u cardiology consult appreciated anemia w/u; spep upep pending falls decubs DVT pfx f/u labs, echo, TFTs diabetes control weight loss, diet d/w pt d/w pt and staff
[2016-07-25] MEDS: glipiZIDE-XL 2.5 MG TAB.ER.24 PO SCH (16:59)
--- NOTE | 2016-07-25 18:32 | PN ---
GI Progress Note Subjective: No abdominal pain No acute events Respiratory status improved CT scan failed to reveal acute pathology MRI rveelaed partially distended GB without dilated biliary tract Hepatitis serologies unrevealing aside from HepB core antibody being positive Started on ceftriaxone 07/23 - Objective Vital Signs: Vital Signs Temperature 98.9 F 07/25/16 14:50 Pulse Rate 71 07/25/16 14:50 Respiratory Rate 20 07/25/16 14:50 Blood Pressure 151/76 07/25/16 14:50 O2 Sat by Pulse Oximetry (%) 99 07/25/16 12:55 Eyes: No: Sclera Icterus Cardiovascular: Yes: Regular Rate and Rhythm Respiratory: Yes: CTA Bilaterally Gastrointestinal Inspection: No: Distention ...Auscultate: Yes: Normoactive Bowel Sounds ...Palpate: No: Tenderness Edema: Yes Neurological: Yes: Alert, Oriented Labs: CBC, BMP 07/25/16 06:28 07/25/16 06:28 INR, PTT INR 1.12 (0.82-1.09) 07/21/16 18:38 Problem List - Problems (1) Abnormal liver enzymes Assessment/Plan: ? if secondary to congestive hepatopathy in setting of CHF Monitor while on ceftriaxone Minmize haptotoxic agents Code(s): R74.8 - ABNORMAL LEVELS OF OTHER SERUM ENZYMES (2) Anemia Code(s): D64.9 - ANEMIA, UNSPECIFIED (3) Shortness of breath Code(s): R06.02 - SHORTNESS OF BREATH
[2016-07-26 00:07] LABS: A/G RATIO 0.9 (0.7-1.7); ALBUMIN 3.1 g/dL (2.9-4.4); GLOBULIN, TOTAL 3.5 g/dL (2.2-3.9); M-SPIKE Not Observed g/dL (Not Observed); TOTAL PROTEIN 6.6 g/dL (6.0-8.5)
[2016-07-26] MEDS: glipiZIDE-XL 5 MG TAB.ER.24 PO SCH (06:26)
[2016-07-26] MEDS: INSULIN SLIDING SCALE (NOVOLOG) 1 VIAL SQ SCH ×4 (06:27→21:27)
[2016-07-26 07:42] LABS: ALBUMIN 2.6 g/dl (3.4-5.0); CALCIUM 8.6 mg/dL (8.5-10.1); COCKROFT - GAULT 27.9055; CREATININE 1.8 mg/dL (0.55-1.02); TOT PROT 5.9 g/dl (6.4-8.2)
[2016-07-26 07:43] LABS: BASOPHIL 0.5 % (0-2.0); EOSINOPHIL 1.8 % (0-4.5); MCH 30.7 pg (25.7-33.7); MCHC 33.3 g/dl (32.0-36.0); MEAN CELL VOLUME 92.1 fl (80-96); MEAN PLT VOLUME 8.7 fl (7.5-11.1); NEUTROPHILS 71.2 % (42.8-82.8); PLATELET COUNT 260 K/MM3 (134-434); RDW 14.8 % (11.6-15.6); WHITE BLOOD COUNT 6.7 K/mm3 (4.0-10.0)
[2016-07-26 07:45] LABS: BILIRUBIN,TOTAL 0.3 mg/dL (0.2-1.0)
[2016-07-26 07:46] LABS: MCH 30.6 pg (25.7-33.7); MCHC 33.3 g/dl (32.0-36.0); MEAN CELL VOLUME 91.9 fl (80-96); MEAN PLT VOLUME 9.1 fl (7.5-11.1); PLATELET COUNT 268 K/MM3 (134-434); RDW 14.6 % (11.6-15.6); WHITE BLOOD COUNT 6.5 K/mm3 (4.0-10.0)
[2016-07-26 07:52] LABS: ALBUMIN 2.5 g/dl (3.4-5.0); BILIRUBIN,DIRECT 0.1 mg/dL (0.0-0.2); BILIRUBIN,TOTAL 0.4 mg/dL (0.2-1.0); TOT PROT 5.8 g/dl (6.4-8.2)
[2016-07-26] MEDS ORDERED: PT OWN MED DRAWER 7, Y5N ONE (09:23)
[2016-07-26] MEDS: ASPIRIN 81 MG CHEWABLE TABLETS PO SCH (09:39)
[2016-07-26] MEDS: CEFTRIAXONE 50 ML IVPB SCH (09:40)
[2016-07-26] MEDS: METOPROLOL SUCCINATE 100 MG TAB.SR.24H (FP) PO SCH (09:42)
[2016-07-26] MEDS: ALLOPURINOL 100 MG TABLET (FP) PO SCH ×2 (09:42→21:26)
[2016-07-26] MEDS: RIVAROXABAN 15 MG TABLET PO SCH (09:42)
--- NOTE | 2016-07-26 09:55 | PN ---
Progress Note (short form) - Note Progress Note: Renal Follow up for JET Pt seen and examine at the bedside feels better denies any sob, orthopnea, PND leg swelling improved good urine output Vital Signs Temperature 99.0 F 07/26/16 06:00 Pulse Rate 72 07/26/16 06:00 Respiratory Rate 20 07/26/16 06:00 Blood Pressure 157/78 07/26/16 06:00 O2 Sat by Pulse Oximetry (%) 99 07/25/16 22:00 Intake & Output 07/23/16 07/24/16 07/25/16 07/26/16 23:59 23:59 23:59 23:59 Intake Total 510 580 550 Output Total 2 Balance 510 580 548 Weight 170 lb 169 lb 6 oz 164 lb 9.6 oz Gen: NAD HEENT: NC/AT, No JVD CVS: RRR, No M/R Lungs: Dec BS LLL, no rales Abd: soft NT/ND Ext: 1+ edema in LE CBC, BMP 07/26/16 06:00 07/26/16 06:00 Laboratory Tests 07/26/16 07/26/16 06:00 06:00 Calcium 8.6 AST 89 H ALT 230 H Alkaline Phosphatase 197 H Total Protein 5.8 L Albumin 2.5 L Current Medications Albuterol Sulfate (Ventolin 0.083% Nebulizer Soln -) 1 amp NEB Q6H PRN PRN Reason: SHORT OF BREATH/WHEEZING Last Admin: 07/24/16 12:00 Dose: 1 amp Allopurinol (Zyloprim -) 100 mg PO BID [facility] Last Admin: 07/26/16 09:42 Dose: 100 mg Aspirin (Asa -) 81 mg PO DAILY [facility] Last Admin: 07/26/16 09:39 Dose: 81 mg Glipizide (Glucotrol Xl -) 5 mg PO AM [facility] Last Admin: 07/26/16 06:26 Dose: 5 mg Glipizide (Glucotrol Xl -) 2.5 mg PO DAILY@1630 [facility] Last Admin: 07/25/16 16:59 Dose: Not Given Ceftriaxone Sodium (Rocephin 1gm Ivpb (Pre-Docked)) 50 mls @ 100 mls/hr IVPB DAILY [facility] Last Admin: 07/26/16 09:40 Dose: 100 mls/hr Insulin Aspart (Novolog Vial Sliding Scale -) 1 vial SQ ACHS [facility] PRN Reason: Protocol Last Admin: 07/26/16 06:27 Dose: Not Given Metoprolol Succinate (Toprol Xl -) 100 mg PO DAILY [facility] Last Admin: 07/26/16 09:42 Dose: 100 mg Rivaroxaban (Xarelto -) 15 mg PO DAILY [facility] Last Admin: 07/26/16 09:42 Dose: 15 mg A/P 85 year old woman with PMhx of CKD, Hypertension, CAD, NIDDM who presented from [employer] office with tachycardia, SOB and LE swelling and found to have Afib with RVR and CHF with worsening Cr in setting of IV diuretics. #JET on CKD Renal function improving off IV lasix PT continues to have LE edema Trial of PO Torsemide starting today Trend BUN/Cr and electrolytes with diuretics #Hyponatremia from hypervolemia trend with Toresemide no indication for 3% saline #SOB from CHF vs. PNA Ct of the chest showed infiltrates on IV Rocephin 4th day today #New Afib on Xarelto if renal function stable and weights continue to improve can plan for possible discharge tomorrow with close outpatient follow up. Moises Kirkland DO
--- NOTE | 2016-07-26 10:24 | PN ---
Progress Note, Physician Chief Complaint: OOB to chair feels better no CP/SOB no cough - Current Medication List Current Medications: Active Medications Albuterol Sulfate (Ventolin 0.083% Nebulizer Soln -) 1 amp NEB Q6H PRN PRN Reason: SHORT OF BREATH/WHEEZING Last Admin: 07/24/16 12:00 Dose: 1 amp Allopurinol (Zyloprim -) 100 mg PO BID [facility] Last Admin: 07/26/16 09:42 Dose: 100 mg Aspirin (Asa -) 81 mg PO DAILY [facility] Last Admin: 07/26/16 09:39 Dose: 81 mg Glipizide (Glucotrol Xl -) 5 mg PO AM [facility] Last Admin: 07/26/16 06:26 Dose: 5 mg Glipizide (Glucotrol Xl -) 2.5 mg PO DAILY@1630 [facility] Last Admin: 07/25/16 16:59 Dose: Not Given Ceftriaxone Sodium (Rocephin 1gm Ivpb (Pre-Docked)) 50 mls @ 100 mls/hr IVPB DAILY [facility] Last Admin: 07/26/16 09:40 Dose: 100 mls/hr Insulin Aspart (Novolog Vial Sliding Scale -) 1 vial SQ ACHS [facility] PRN Reason: Protocol Last Admin: 07/26/16 06:27 Dose: Not Given Metoprolol Succinate (Toprol Xl -) 100 mg PO DAILY [facility] Last Admin: 07/26/16 09:42 Dose: 100 mg Rivaroxaban (Xarelto -) 15 mg PO DAILY [facility] Last Admin: 07/26/16 09:42 Dose: 15 mg Torsemide (Demadex -) 20 mg PO DAILY [facility] - Objective Vital Signs: Vital Signs Temperature 99.0 F 07/26/16 06:00 Pulse Rate 72 07/26/16 06:00 Respiratory Rate 20 07/26/16 06:00 Blood Pressure 157/78 07/26/16 06:00 O2 Sat by Pulse Oximetry (%) 99 07/25/16 22:00 Constitutional: Yes: No Distress, Calm Eyes: Yes: Conjunctiva Clear HENT: Yes: Atraumatic Neck: Yes: Supple Cardiovascular: Yes: Regular Rate and Rhythm Respiratory: Yes: CTA Bilaterally Gastrointestinal: Yes: Soft. No: Distention, Tenderness Genitourinary: No: CVA Tenderness - Left, CVA Tenderness - Right, Hematuria Musculoskeletal: No: Joint Stiffness, Joint Swelling Extremities: No: Cold, Cool, Cyanosis Edema: No Peripheral Pulses WNL: Yes Integumentary: No: Rash, Venous Stasis Changes Neurological: Yes: WNL, Alert, Oriented ...Motor Strength: WNL Psychiatric: Yes: WNL, Alert, Oriented. No: Agitated, Suicidal Ideation Labs: CBC, BMP 07/26/16 06:00 07/26/16 06:00 INR, PTT INR 1.12 (0.82-1.09) 07/21/16 18:38 - ....Imaging Other: Report Reviewed Assessment/Plan The patient is a 85 year old female with a significant past medical history of [place], CAD s/p stents, CHF, NIDDM, renal insufficiency, and HTN, who presents to the emergency department with tachycardia and shortness of breath and pedal edema, found to be in new onset rapid AFib and acute on chronic renal failure received lasix iv, developed ARF/CRF; now lasix held, creat slightly better chest CT PNA - on IV ATB abdomen CT mild hydronephrosis, f/u abdomen MRI noted; GI f/u cardiology consult appreciated anemia w/u; spep upep pending falls decubs DVT pfx f/u labs, echo, TFTs diabetes control weight loss, diet d/w pt d/w pt and staff PT rehab and respiratory eval for possible DC home in am if labs continue to improve; will need close outpt f/u d/w pt.
--- NOTE | 2016-07-26 10:25 | PN ---
Progress Note, Physician History of Present Illness: sob palpitations hr 140 patient brought by family to the er PMH s/p 2 drug-eluting (Promus) coronary stents in LAD 2009 Non-obstructive 3 VD on 07/2012 coronary angiogram s/p cataract surgery Ongoing medical problems angina CAD: s/p 2 DEStents to mid-LAD 08/2009 at [facility] by Dr. Ramirez Cor angiogram 07/2012: LM 30stial; prox and midLAD stent sites patent; distal LAD 30% ostial LCx 50% mid LCx 30% RCA prox 30% OM3 40%. Diabetes mellitus, type II Gout Hypercholesterolemia Hyperlipidemia IgM monoclonal gammopathy; anemia overweight Meds Allopurinol 300 MG Oral Tablet Aspirin 81 MG Oral Tablet Delayed Release Atorvastatin Calcium (Lipitor) 80 MG Oral Tablet Atorvastatin Calcium 40 MG Oral Tablet Clopidogrel Bisulfate (Plavix) 75 MG Oral Tablet Colchicine 0.6 MG Oral Tablet Losartan Potassium 25 MG Oral Tablet MetFORMIN HCl 500 MG Oral Tablet Metoprolol Succinate (Metoprolol Succinate ER) 100 MG Oral Tablet Extended Release 24 Hour Nifedipine (NIFEdipine ER) 60 MG Oral Tablet Extended Release 24 Hour Nifedipine (Procardia XL) 60 MG Oral Tablet Extended Release 24 Hour ECHO Name: Mahesh Fatima Date: June 15, 2016 Referring MD: Diagnosis: HTN Aortic Root Normal Tricuspid Valve Normal Pericardium Normal Pulmonary artery Normal Pulmonic Valve Normal Aortic Valve Normal Left Ventricle Normal Right Ventricle Normal Pulmonic veins Not recorded Mitral Annulus Normal Mitral Leaflets Moderately Thickened Right Atrium Normal Left Atrium Moderate Enlargement Inferior vena cava Not recorded Aortic valve: AR = None Mitral valve: MR = Mild Pulmonic valve: TN = Mild Tricuspid valve TR= Mild SUMMARY 1. Normal left ventricular ejection fraction. 2. No regional wall motion abnormalities. 3. Abnormal diastolic compliance of the left ventricle. 4. Mild left ventricular hypertrophy. 5. Moderate left atrial enlargement. 6. Mild pulmonic valve regurgitation. 7. Moderately thickened mitral valve leaflets. 8. Mild mitral valve regurgitation. 9. Mild tricuspid valve regurgitation with normal right ventricle systolic pressure - Current Medication List Current Medications: Active Medications Albuterol Sulfate (Ventolin 0.083% Nebulizer Soln -) 1 amp NEB Q6H PRN PRN Reason: SHORT OF BREATH/WHEEZING Last Admin: 07/24/16 12:00 Dose: 1 amp Allopurinol (Zyloprim -) 100 mg PO BID [facility] Last Admin: 07/26/16 09:42 Dose: 100 mg Aspirin (Asa -) 81 mg PO DAILY [facility] Last Admin: 07/26/16 09:39 Dose: 81 mg Glipizide (Glucotrol Xl -) 5 mg PO AM [facility] Last Admin: 07/26/16 06:26 Dose: 5 mg Glipizide (Glucotrol Xl -) 2.5 mg PO DAILY@1630 [facility] Last Admin: 07/25/16 16:59 Dose: Not Given Ceftriaxone Sodium (Rocephin 1gm Ivpb (Pre-Docked)) 50 mls @ 100 mls/hr IVPB DAILY [facility] Last Admin: 07/26/16 09:40 Dose: 100 mls/hr Insulin Aspart (Novolog Vial Sliding Scale -) 1 vial SQ ACHS [facility] PRN Reason: Protocol Last Admin: 07/26/16 06:27 Dose: Not Given Metoprolol Succinate (Toprol Xl -) 100 mg PO DAILY [facility] Last Admin: 07/26/16 09:42 Dose: 100 mg Rivaroxaban (Xarelto -) 15 mg PO DAILY [facility] Last Admin: 07/26/16 09:42 Dose: 15 mg Torsemide (Demadex -) 20 mg PO DAILY [facility] - Objective Vital Signs: Vital Signs Temperature 99.0 F 07/26/16 06:00 Pulse Rate 72 07/26/16 06:00 Respiratory Rate 20 07/26/16 06:00 Blood Pressure 157/78 07/26/16 06:00 O2 Sat by Pulse Oximetry (%) 99 07/25/16 22:00 Eyes: Yes: WNL, Conjunctiva Clear, EOM Intact HENT: Yes: WNL, Atraumatic, Normocephalic Neck: Yes: WNL, Supple, Trachea Midline Cardiovascular: Yes: WNL, Regular Rate and Rhythm Respiratory: Yes: WNL, Regular, CTA Bilaterally Gastrointestinal: Yes: WNL, Normal Bowel Sounds Genitourinary: Yes: WNL Musculoskeletal: Yes: WNL Extremities: Yes: WNL Edema: No Edema: LLE: Trace, RLE: Trace Integumentary: Yes: WNL Neurological: Yes: WNL, Alert, Oriented ...Motor Strength: WNL Psychiatric: Yes: WNL Labs: CBC, BMP 07/26/16 06:00 07/26/16 06:00 INR, PTT INR 1.12 (0.82-1.09) 07/21/16 18:38 Problem List - Problems (1) CAD (coronary artery disease) Code(s): I25.10 - ATHSCL HEART DISEASE OF [place] CORONARY ARTERY W/O ANG PCTRS (2) Chronic diastolic (congestive) heart failure Code(s): I50.32 - CHRONIC DIASTOLIC (CONGESTIVE) HEART FAILURE (3) Diabetes Code(s): E11.9 - TYPE 2 DIABETES MELLITUS WITHOUT COMPLICATIONS (4) HTN (hypertension) Code(s): I10 - ESSENTIAL (PRIMARY) HYPERTENSION (5) Hyperlipidemia Code(s): E78.5 - HYPERLIPIDEMIA, UNSPECIFIED (6) Hyponatremia with decreased serum osmolality Code(s): E87.1 - HYPO-OSMOLALITY AND HYPONATREMIA Assessment/Plan atrial tachycardia 2;1 block in sr now CHF diastolic acute angina CAD: s/p 2 DEStents to mid-LAD 08/[facility] by [facility] Ramirez Cor angiogram 07/2012: LM 30stial; prox and midLAD stent sites patent; distal LAD 30% ostial LCx 50% mid LCx 30% RCA prox 30% OM3 40%. 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
[2016-07-26] MEDS: TORSEMIDE 20 MG TABLET (FP) PO SCH (11:45)
--- NOTE | 2016-07-26 13:58 | CONSULT ---
Consult Consult Specialty:: urology Referred by:: medicine Reason for Consultation:: elevated creatinine, hydronephrosis - History of Present Illness Chief Complaint: elevated creatinine, hydronephrosis History of Present Illness: 85 year old woman admitted with heart palpatations noted to have worsening renal insufficiency. Imaging revealed mild hydro. No urinary complaints. - History Source History Provided By: Patient Limitations to Obtaining History: No Limitations - Past Medical History Cardio/Vascular: Yes: CAD, CHF, HTN Renal/: Yes: Renal Inusuff. 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 Home Medications - Allergies Allergies/Adverse Reactions: Allergies Allergy/AdvReac Type Severity Reaction Status Date / Time No Known Allergies Allergy Verified 07/20/16 15:53 - Home Medications Home Medications: Ambulatory Orders Allopurinol [Zyloprim -] 100 mg PO BID 09/20/15 Aspirin [Cheo Chewable Aspirin] 81 mg PO DAILY 09/20/15 Atorvastatin Ca [Lipitor] 40 mg PO HS 09/20/15 Clopidogrel Bisulfate [Plavix -] 75 mg PO DAILY 09/20/15 Glipizide [Glipizide ER] 2.5 mg PO HS 09/20/15 Glipizide [Glipizide ER] 5 mg PO DAILY 09/20/15 Metoprolol Succinate [Toprol XL -] 100 mg PO DAILY 09/20/15 Nifedipine ER [Procardia XL -] 60 mg PO BID 09/20/15 Family Disease History - Family Disease History Family Disease History: Other: Father ( 86: "sepsis"), Mother ( 97 "old age") Other Family History: 13 siblings, 4 : 3 from ? diabetic complications, 1 from CKD/heart Dz Review of Systems - Review of Systems Genitourinary: reports: No Symptoms Physical Exam Vital Signs: Vital Signs Temperature 99.0 F 07/26/16 06:00 Pulse Rate 73 07/26/16 11:15 Respiratory Rate 20 07/26/16 06:00 Blood Pressure 157/78 07/26/16 06:00 O2 Sat by Pulse Oximetry (%) 97 07/26/16 11:15 Renal/: No: CVA Tenderness - Left, CVA Tenderness - Right, Pal[place] Present Labs: CBC, BMP 07/26/16 06:00 07/26/16 06:00 Imaging - Results Cat Scan: Report Reviewed Problem List - Problems (1) Hydronephrosis Assessment/Plan: amount of dilation is small and not likely contributing to renal impairment. Creatinine has decreased on its own to 1.8. No surgical intervention planned. Code(s): N13.30 - UNSPECIFIED HYDRONEPHROSIS
[2016-07-26] MEDS ORDERED: INSULIN (NOVOLOG) ASPART 100 UNITS/ML 10ML VIAL ONE ×2 (17:10→21:20)
[2016-07-26] MEDS: glipiZIDE-XL 2.5 MG TAB.ER.24 PO SCH (17:17)
[2016-07-27] MEDS: glipiZIDE-XL 5 MG TAB.ER.24 PO SCH (06:01)
[2016-07-27] MEDS: INSULIN SLIDING SCALE (NOVOLOG) 1 VIAL SQ SCH ×2 (06:01→11:24)
[2016-07-27 07:59] LABS: BASOPHIL 0.9 % (0-2.0); EOSINOPHIL 3.9 % (0-4.5); MCH 30.9 pg (25.7-33.7); MCHC 33.4 g/dl (32.0-36.0); MEAN CELL VOLUME 92.5 fl (80-96); MEAN PLT VOLUME 8.6 fl (7.5-11.1); NEUTROPHILS 70.6 % (42.8-82.8); PLATELET COUNT 291 K/MM3 (134-434); WHITE BLOOD COUNT 7.7 K/mm3 (4.0-10.0)
[2016-07-27 08:20] LABS: ALBUMIN 2.7 g/dl (3.4-5.0); BILIRUBIN,TOTAL 0.3 mg/dL (0.2-1.0); CALCIUM 8.5 mg/dL (8.5-10.1); COCKROFT - GAULT 30.804; CREATININE 1.6 mg/dL (0.55-1.02); MAGNESIUM 1.8 mg/dL (1.8-2.4); PHOSPHOROUS 3.3 mg/dL (2.5-4.9); TOT PROT 6.1 g/dl (6.4-8.2)
[2016-07-27] MEDS: RIVAROXABAN 15 MG TABLET PO SCH (09:09)
[2016-07-27] MEDS: METOPROLOL SUCCINATE 100 MG TAB.SR.24H (FP) PO SCH (09:10)
[2016-07-27] MEDS: ASPIRIN 81 MG CHEWABLE TABLETS PO SCH (09:10)
[2016-07-27] MEDS: TORSEMIDE 20 MG TABLET (FP) PO SCH (09:10)
[2016-07-27] MEDS: ALLOPURINOL 100 MG TABLET (FP) PO SCH (09:10)
--- NOTE | 2016-07-27 10:36 | PN ---
Progress Note, Physician History of Present Illness: sob palpitations hr 140 patient brought by family to the er PMH s/p 2 drug-eluting (Promus) coronary stents in LAD 2009 Non-obstructive 3 VD on 07/2012 coronary angiogram s/p cataract surgery Ongoing medical problems angina CAD: s/p 2 DEStents to mid-LAD 08/2009 at [facility] by Dr. Ramirez Cor angiogram 07/2012: LM 30stial; prox and midLAD stent sites patent; distal LAD 30% ostial LCx 50% mid LCx 30% RCA prox 30% OM3 40%. Diabetes mellitus, type II Gout Hypercholesterolemia Hyperlipidemia IgM monoclonal gammopathy; anemia overweight Meds Allopurinol 300 MG Oral Tablet Aspirin 81 MG Oral Tablet Delayed Release Atorvastatin Calcium (Lipitor) 80 MG Oral Tablet Atorvastatin Calcium 40 MG Oral Tablet Clopidogrel Bisulfate (Plavix) 75 MG Oral Tablet Colchicine 0.6 MG Oral Tablet Losartan Potassium 25 MG Oral Tablet MetFORMIN HCl 500 MG Oral Tablet Metoprolol Succinate (Metoprolol Succinate ER) 100 MG Oral Tablet Extended Release 24 Hour Nifedipine (NIFEdipine ER) 60 MG Oral Tablet Extended Release 24 Hour Nifedipine (Procardia XL) 60 MG Oral Tablet Extended Release 24 Hour ECHO Name: Mahesh Fatima Date: June 15, 2016 Referring MD: Diagnosis: HTN Aortic Root Normal Tricuspid Valve Normal Pericardium Normal Pulmonary artery Normal Pulmonic Valve Normal Aortic Valve Normal Left Ventricle Normal Right Ventricle Normal Pulmonic veins Not recorded Mitral Annulus Normal Mitral Leaflets Moderately Thickened Right Atrium Normal Left Atrium Moderate Enlargement Inferior vena cava Not recorded Aortic valve: AR = None Mitral valve: MR = Mild Pulmonic valve: NH = Mild Tricuspid valve TR= Mild SUMMARY 1. Normal left ventricular ejection fraction. 2. No regional wall motion abnormalities. 3. Abnormal diastolic compliance of the left ventricle. 4. Mild left ventricular hypertrophy. 5. Moderate left atrial enlargement. 6. Mild pulmonic valve regurgitation. 7. Moderately thickened mitral valve leaflets. 8. Mild mitral valve regurgitation. 9. Mild tricuspid valve regurgitation with normal right ventricle systolic pressure - Current Medication List Current Medications: Active Medications Allopurinol (Zyloprim -) 100 mg PO BID [facility] Last Admin: 07/27/16 09:10 Dose: 100 mg Aspirin (Asa -) 81 mg PO DAILY [facility] Last Admin: 07/27/16 09:10 Dose: 81 mg Glipizide (Glucotrol Xl -) 5 mg PO AM [facility] Last Admin: 07/27/16 06:01 Dose: 5 mg Glipizide (Glucotrol Xl -) 2.5 mg PO DAILY@1630 [facility] Last Admin: 07/26/16 17:17 Dose: 2.5 mg Insulin Aspart (Novolog Vial Sliding Scale -) 1 vial SQ ACHS [facility] PRN Reason: Protocol Last Admin: 07/27/16 06:01 Dose: Not Given Metoprolol Succinate (Toprol Xl -) 100 mg PO DAILY [facility] Last Admin: 07/27/16 09:10 Dose: 100 mg Rivaroxaban (Xarelto -) 15 mg PO DAILY [facility] Last Admin: 07/27/16 09:09 Dose: 15 mg Torsemide (Demadex -) 20 mg PO DAILY [facility] Last Admin: 07/27/16 09:10 Dose: 20 mg - Objective Vital Signs: Vital Signs Temperature 98.4 F 07/27/16 09:07 Pulse Rate 68 07/27/16 09:07 Respiratory Rate 19 07/27/16 09:07 Blood Pressure 144/67 07/27/16 09:07 O2 Sat by Pulse Oximetry (%) 93 L 07/26/16 21:00 Eyes: Yes: WNL, Conjunctiva Clear, EOM Intact HENT: Yes: WNL, Atraumatic, Normocephalic Neck: Yes: WNL, Supple, Trachea Midline Cardiovascular: Yes: WNL, Regular Rate and Rhythm Respiratory: Yes: WNL, Regular, CTA Bilaterally Gastrointestinal: Yes: WNL, Normal Bowel Sounds Genitourinary: Yes: WNL Musculoskeletal: Yes: WNL Extremities: Yes: WNL Edema: Yes Edema: LLE: Trace, RLE: Trace Integumentary: Yes: WNL Neurological: Yes: WNL, Alert, Oriented ...Motor Strength: WNL Psychiatric: Yes: WNL Labs: CBC, BMP 07/27/16 07:00 07/27/16 07:00 INR, PTT INR 1.12 (0.82-1.09) 07/21/16 18:38 Problem List - Problems (1) CAD (coronary artery disease) Code(s): I25.10 - ATHSCL HEART DISEASE OF [place] CORONARY ARTERY W/O ANG PCTRS (2) Chronic diastolic (congestive) heart failure Code(s): I50.32 - CHRONIC DIASTOLIC (CONGESTIVE) HEART FAILURE (3) Diabetes Code(s): E11.9 - TYPE 2 DIABETES MELLITUS WITHOUT COMPLICATIONS (4) HTN (hypertension) Code(s): I10 - ESSENTIAL (PRIMARY) HYPERTENSION (5) Hyperlipidemia Code(s): E78.5 - HYPERLIPIDEMIA, UNSPECIFIED (6) Hyponatremia with decreased serum osmolality Code(s): E87.1 - HYPO-OSMOLALITY AND HYPONATREMIA Assessment/Plan atrial tachycardia 2;1 block in sr now CHF diastolic acute angina CAD: s/p 2 DEStents to mid-LAD 08/2009 at [facility] by Dr. Ramirez Cor angiogram 07/2012: LM 30stial; prox and midLAD stent sites patent; distal LAD 30% ostial LCx 50% mid LCx 30% RCA prox 30% OM3 40%. 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
--- NOTE | 2016-07-27 11:04 | DS ---
Physical Examination Vital Signs: Vital Signs Temperature 98.4 F 07/27/16 09:07 Pulse Rate 68 07/27/16 09:07 Respiratory Rate 19 07/27/16 09:07 Blood Pressure 144/67 07/27/16 09:07 O2 Sat by Pulse Oximetry (%) 93 L 07/26/16 21:00 Findings/Remarks: OOB to chair feels well, wants to go home sister and B-I-L at bedside d/w them DC instruction, meds, VNS and home O2 and f/u needed scripts done d/w CM t time 40 min Constitutional: Yes: No Distress, Calm Eyes: Yes: Conjunctiva Clear HENT: Yes: Atraumatic Neck: Yes: Supple Cardiovascular: Yes: Regular Rate and Rhythm Respiratory: Yes: CTA Bilaterally Gastrointestinal: Yes: Soft. No: Distention, Tenderness Renal/: No: CVA Tenderness - Left, CVA Tenderness - Right Musculoskeletal: No: Joint Stiffness, Joint Swelling Extremities: No: Cold, Cool Edema: No Peripheral Pulses WNL: Yes Integumentary: No: Rash, Venous Stasis Changes Neurological: Yes: WNL, Alert, Oriented ...Motor Strength: WNL Psychiatric: Yes: WNL, Alert, Oriented. No: Agitated, Suicidal Ideation Labs: CBC, BMP 07/27/16 07:00 07/27/16 07:00 Discharge Summary Reason For Visit: CHF/ATRIAL FIBRILATION W/RAP VENTREICUL RESPONCES Current Active Problems Abnormal liver enzymes (Acute) Anemia (Acute) Atrial fibrillation with RVR (Acute) CHF (congestive heart failure) (Acute) Hydronephrosis (Acute) Shortness of breath (Acute) Procedures: Principal: admitted with new onset PAFib, h/o ASHD stents;. playground monitor; meds per cardiology Other Procedures: developed ARF/CRF; high LFTs;. chest CT c/w PNA/ infiltrates ; Iv ATB. renal and GI called; started on torsemide; renal fct and LFTs improved Hospital Course: improved with above; DC home see f/u and meds; Home O2, VNS; d/w pt and family and H staff - Instructions Diet, Activity, Other Instructions: f/u PCP and cardiology in 1-2 weeks after DC check labs CBC CMP in 1 week GI, renal and heme f/u in 2-4 weeks repeat chest & abdomen CT no ivc in 4-6 weeks scripts done Home O2 NC 2L/min continuous portable Home VNS falls pfx RTER if worse or recurrent c/o\ check weight q 2-3 days call MD if > or < 2-3 lbs d/w pt and staff Referrals: Margareth Woodard [Primary Care Provider] - Disposition: VNS/HOME HEALTH CARE - Home Medications Comprehensive Discharge Medication List: Ambulatory Orders Allopurinol [Zyloprim -] 100 mg PO BID 09/20/15 Aspirin [Cheo Chewable Aspirin] 81 mg PO DAILY 09/20/15 Atorvastatin Ca [Lipitor] 40 mg PO HS 09/20/15 Glipizide [Glipizide ER] 2.5 mg PO HS 09/20/15 Glipizide [Glipizide ER] 5 mg PO DAILY 09/20/15 Cephalexin Monohydrate [Keflex -] 500 mg PO BID #10 capsule 07/27/16 Metoprolol Succinate [Toprol XL -] 100 mg PO DAILY #90 tab 07/27/16 Rivaroxaban [Xarelto -] 15 mg PO DAILY #90 tablet 07/27/16 Torsemide [Demadex -] 20 mg PO DAILY #90 tablet 07/27/16
[2016-07-27] MEDS ORDERED: INSULIN (NOVOLOG) ASPART 100 UNITS/ML 10ML VIAL ONE (11:23)
--- NOTE | 2016-07-27 11:54 | PN ---
Progress Note (short form) - Note Progress Note: Renal Follow up for JET Pt seen and examine at the bedside sob improved LE edema improved no acute complaints for discharge today Vital Signs Temperature 98.4 F 07/27/16 09:07 Pulse Rate 68 07/27/16 09:07 Respiratory Rate 19 07/27/16 09:07 Blood Pressure 144/67 07/27/16 09:07 O2 Sat by Pulse Oximetry (%) 93 L 07/26/16 21:00 Intake & Output 07/24/16 07/25/16 07/26/16 07/27/16 23:59 23:59 23:59 23:59 Intake Total 580 550 770 620 Output Total 2 Balance 580 548 770 620 Weight 169 lb 6 oz 164 lb 9.6 oz 161 lb 8 oz Gen: NAD HEENT: NC/AT, No JVD CVS: RRR, No M/R Lungs: Dec BS LLL, no rales Abd: soft NT/ND Ext: 1+ edema in LE CBC, BMP 07/27/16 07:00 07/27/16 07:00 Current Medications Allopurinol (Zyloprim -) 100 mg PO BID [facility] Last Admin: 07/27/16 09:10 Dose: 100 mg Aspirin (Asa -) 81 mg PO DAILY [facility] Last Admin: 07/27/16 09:10 Dose: 81 mg Glipizide (Glucotrol Xl -) 5 mg PO AM [facility] Last Admin: 07/27/16 06:01 Dose: 5 mg Glipizide (Glucotrol Xl -) 2.5 mg PO DAILY@1630 [facility] Last Admin: 07/26/16 17:17 Dose: 2.5 mg Insulin Aspart (Novolog Vial Sliding Scale -) 1 vial SQ ACHS [facility] PRN Reason: Protocol Last Admin: 07/27/16 11:24 Dose: 4 units Metoprolol Succinate (Toprol Xl -) 100 mg PO DAILY [facility] Last Admin: 07/27/16 09:10 Dose: 100 mg Rivaroxaban (Xarelto -) 15 mg PO DAILY [facility] Last Admin: 07/27/16 09:09 Dose: 15 mg Torsemide (Demadex -) 20 mg PO DAILY [facility] Last Admin: 07/27/16 09:10 Dose: 20 mg A/P 85 year old woman with PMhx of CKD, Hypertension, CAD, NIDDM who presented from [employer] office with tachycardia, SOB and LE swelling and found to have Afib with RVR and CHF with worsening Cr in setting of IV diuretics. #JET on CKD Renal function improving continue daily toresemide to follow up in the office next week #Hyponatremia improved with diuretics #SOB from CHF vs. PNA to continue PO abx as outpatient #New Afib on Xareljanes Kirkland DO
[2016-07-27 14:31] VITALS: BP 145/68; PULSE 72; TEMP 98.5
[2016-07-29 15:27] LABS: ALBUMIN FOR UPE 54.3; GAMMA GLOBULIN % 22.1 %; M-SPIKE, % NOT OBSERVED
== END 2016-07-27 14:39 | disposition home health service (06) | DRG 291 ==
LOC: JER 15:40 → JERBED 18:19 → J4S 07-21 21:26
PROVIDERS: ADMIT Internal Medicine; ATTEND Internal Medicine
DX: I13.0 Hypertensive heart and chronic kidney disease with heart failure and stage 1 through stage 4 chronic kidney disease, or unspecified chronic kidney disease (principal); I50.33 Acute on chronic diastolic (congestive) heart failure; J18.9 Pneumonia, unspecified organism; N17.9 Acute kidney failure, unspecified; E87.1 Hypo-osmolality and hyponatremia; I47.1 Supraventricular tachycardia; I48.92 Unspecified atrial flutter; N13.30 Unspecified hydronephrosis; E11.22 Type 2 diabetes mellitus with diabetic chronic kidney disease; N18.9 Chronic kidney disease, unspecified; I25.10 Atherosclerotic heart disease of native coronary artery without angina pectoris; I25.2 Old myocardial infarction; I48.91 Unspecified atrial fibrillation; E78.5 Hyperlipidemia, unspecified; D64.9 Anemia, unspecified; M54.5 Low back pain; M19.90 Unspecified osteoarthritis, unspecified site; R74.8 Abnormal levels of other serum enzymes; E66.8 Other obesity; Z68.29 Body mass index [BMI] 29.0-29.9, adult; Z71.3 Dietary counseling and surveillance; Z96.653 Presence of artificial knee joint, bilateral; Z95.5 Presence of coronary angioplasty implant and graft
CPT/HCPCS: 36415; 71010-TC; 71250-TC; 74150-TC; 74181-TC; 76705-TC; 76775-TC; 80048; 80053; 80076; 81003; 81015; 82272; 82550; 82553; 82570; 82607; 82728; 83540; 83550; 83735; 83880; 84100; 84155; 84156; 84157; 84165; 84300; 84439; 84443; 84481; 84484; 84540; 85025; 85027; 85610; 85651; 85730; 86038; 86704; 86706; 86708; 87086; 87186; 87254; 87340; 87804; 93005; 93010; 93306-TC; 94640; 94761; 97116-GP; 97161-GP; 99285-25; J1644

== ENCOUNTER 2016-08-02 14:08 | Inpatient (IN) | payer BC ==
[2016-08-02 14:14] VITALS: BMI 28.3
[2016-08-02] MEDS ORDERED: SODIUM CHLORIDE 1,000 ML IV STA (15:05)
--- NOTE | 2016-08-02 15:17 | PDOC ---
History of Present Illness - History of Present Illness Initial Comments: 08/02/16 15:46 General History Source: Patient Exam Limitations: No Limitations - History of Present Illness Initial Comments: 08/02/16 15:30 The patient is an 85-year-old woman, accompanied by family, with a significant past medical history of hypertension, hypercholesterolemia, myocardial infarction, coronary artery disease status post stent placements, renal insufficiency, non-insulin dependent diabetes mellitus and congestive heart failure who presents to the emergency department for further evaluation of rectal bleeding. As per patient, she was just admitted in this hospital from -07/22 for shortness of breath and tachycardia. During admission she was found to be in atrial fibrillation and was initially placed on a Heparin drip and was subsequently switched to Xarelto. She was noted to have abnormal LFTs. Abdominal ultrasound was performed which showed a normal liver, gallbladder and common bile duct of 3mm. Patient was ultimately discharged and she recalls noting that post discharge, she started to experience diarrhea, reported as loose watery stools. The next day, she noted that her stool was maroon appearing. She had a similar bowel movement two days later. She denies noting any bright red blood/clots. She denies any associated symptoms of abdominal pain , nausea, vomiting, urinary complaints, generalized weakness, fever, chills, visual changes headaches, chest pain,lightheadedness, dizziness, palpitations, cough and shortness of breath. Patient is currently on a baby aspirin and Xarelto. Allergies: Penicillin Past Surgical History: Stent Placements. Partial thyroidectomy. 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 No ETOH and recreational drug use. Primary Care Physician: Dr. Margareth Woodard Retail Event And Sales Assistant: Dr. Temo Summers Remainder of the review of systems is negative <Linda Rojas - Last Filed: 08/02/16 15:31> <Angi Jameson - Last Filed: 08/02/16 16:01> - General History Source: Patient Exam Limitations: No Limitations <Linda Rojas - Last Filed: 08/02/16 16:49> - General Chief Complaint: Rectal Bleed Stated Complaint: SENT BY PCP,SOB Time Seen by Provider: 08/02/16 14:58 Past History - Past Medical History Anemia: No Asthma: No Cancer: No Cardiac Disorders: Yes (mi/cath/2 stents) CVA: No COPD: No CHF: No Dementia: No Diabetes: Yes (po meds only) GI Disorders: No Disorders: No HTN: Yes Hypercholesterolemia: No Liver Disease: No Seizures: No Thyroid Disease: Yes (left lobe thyroidectomy) - Surgical History Abdominal Surgery: No Appendectomy: No Cardiac Surgery: Yes (2 STENTS) Cholecystectomy: No Lung Surgery: No Orthopedic Surgery: Yes (angelia. knee replacement) - Psycho/Social/Smoking Cessation Hx Suicidal Ideation: No Smoking Status: No Smoking History: Never smoked Have you smoked in the past 12 months: No Number of Cigarettes Smoked Daily: 0 Information on smoking cessation initiated: No Hx Alcohol Use: No Drug/Substance Use Hx: No Substance Use Type: None Hx Substance Use Treatment: No <Angi Jameson - Last Filed: 08/02/16 16:01> <Linda Rojas - Last Filed: 08/02/16 16:49> - Past Medical History Allergies/Adverse Reactions: Allergies Allergy/AdvReac Type Severity Reaction Status Date / Time No Known Allergies Allergy Verified 08/02/16 14:14 Home Medications: Ambulatory Orders Allopurinol [Zyloprim -] 100 mg PO BID 09/20/15 Aspirin [Cheo Chewable Aspirin] 81 mg PO DAILY 09/20/15 Atorvastatin Ca [Lipitor] 40 mg PO HS 09/20/15 Glipizide [Glipizide ER] 2.5 mg PO HS 09/20/15 Glipizide [Glipizide ER] 5 mg PO DAILY 09/20/15 Cephalexin Monohydrate [Keflex -] 500 mg PO BID #10 capsule 07/27/16 Metoprolol Succinate [Toprol XL -] 100 mg PO DAILY #90 tab 07/27/16 Rivaroxaban [Xarelto -] 15 mg PO DAILY #90 tablet 07/27/16 Torsemide [Demadex -] 20 mg PO DAILY #90 tablet 07/27/16 Review of Systems - Review of Systems Able to Perform ROS?: Yes Comments:: 08/02/16 15:30 12 point review of systems is as per history of present illness and otherwise negative. <Linda Rojas - Last Filed: 08/02/16 16:49> *Physical Exam - Vital Signs Last Vital Signs Temp Pulse Resp BP Pulse Ox 98.3 F 81 18 141/59 99 08/02/16 14:10 08/02/16 14:10 08/02/16 14:10 08/02/16 14:10 08/02/16 14:10 - Physical Exam Comments: 08/02/16 15:16 Physical exam Last Vital Signs Temp Pulse Resp BP Pulse Ox 98.3 F 81 18 141/59 99 08/02/16 14:10 08/02/16 14:10 08/02/16 14:10 08/02/16 14:10 08/02/16 14:10 GENERAL: The patient is awake, alert, and fully oriented, and in no apparent distress. HEAD: Normal with no signs of trauma. EYES: sclera anicteric, conjunctiva are normal. ENT: Moist mucous membranes. NECK: Normal range of motion, supple LUNGS: Breath sounds equal, clear to auscultation bilaterally. No wheezes, and no crackles. HEART: Regular rate and rhythm, normal S1 and S2 without murmur, rub or gallop. ABDOMEN: Soft, nontender, normoactive bowel sounds. No guarding, no rebound. No masses appreciated. RECTAL: As a large external hemorrhoid noted which is excoriated The stool is brown, and does not appear black and tarry at this time Hemoccult card sent to lab EXTREMITIES: Normal range of motion, no edema. No clubbing or cyanosis. No cords, erythema, or tenderness. NEUROLOGICAL: Cranial nerves II through XII grossly intact. Normal speech, normal gait. PSYCH: Normal mood, normal affect. SKIN: Warm, Dry, normal turgor, no rashes or lesions noted. <Angi Jameson - Last Filed: 08/02/16 16:01> - Vital Signs Last Vital Signs Temp Pulse Resp BP Pulse Ox 98.3 F 81 18 141/59 99 08/02/16 14:10 08/02/16 14:10 08/02/16 14:10 08/02/16 14:10 08/02/16 14:10 <Linda Rojas - Last Filed: 08/02/16 16:49> ED Treatment Course - LABORATORY CBC & Chemistry Diagram: 08/02/16 15:23 08/02/16 15:23 - RADIOLOGY Radiology Studies Ordered: Category Date Time Status CHEST X-RAY PORTABLE* [RAD] Stat Radiology 08/02/16 15:05 Ordered <Angi Jameson - Last Filed: 08/02/16 16:01> - LABORATORY CBC & Chemistry Diagram: 08/02/16 15:23 08/02/16 15:23 <Linda Rojas - Last Filed: 08/02/16 16:49> Medical Decision Making - Medical Decision Making 08/02/16 15:58 Rectal exam today stool looks brown, and is reported as negative, although patient had black tarry and maroon stool for the past few days, although not today Hemoglobin is 6, ordered 2 units of PRBCs Patient is on aspirin and Xarelto Case and all results discussed with Dr. Moon Andres-will admit ICU Will also consult Dr. Recinos and the molder offbearer Patient given IV Protonix Laboratory Results - last 24 hr 08/02/16 08/02/16 08/02/16 15:23 15:23 15:23 WBC 8.2 RBC 2.13 L D Hgb 6.5 L* D Hct 19.8 L D MCV 93.2 MCHC 32.6 RDW 15.1 Plt Count 341 MPV 8.4 Stool Occult Blood Negative Crossmatch See Detail 08/02/16 16:01 Case and all results discussed with Dr. Moon Andres-will admit Dr. Recinos-GI paged Case discussed with Dr. Zavala-approves ICU bed <Angi Jameson - Last Filed: 08/02/16 16:01> - Medical Decision Making 08/02/16 15:[address] Margareth Woodard. Accepts case. 08/02/16 15:[address] Zavala. Accepts case. 08/02/16 16:[address] Robbins. Case discussed. Accepts case. <Linda Rojas - Last Filed: 08/02/16 16:49> *DC/Admit/Observation/Transfer - Discharge Dispostion Admit: Yes <Angi Jameson - Last Filed: 08/02/16 16:01> - Attestations Scribe Attestion: 08/02/16 15:31 Documentation prepared by Linda Rojas, acting as medical photographer for Angi Jameson MD. <Linda Rojas - Last Filed: 08/02/16 16:49> Diagnosis at time of Disposition: Gastrointestinal hemorrhage, Severe anemia - Referrals Referrals: Margareth Woodard [Primary Care Provider] -
[2016-08-02 15:35] LABS: MCH 30.3 pg (25.7-33.7); MCHC 32.6 g/dl (32.0-36.0); MEAN CELL VOLUME 93.2 fl (80-96); MEAN PLT VOLUME 8.4 fl (7.5-11.1); PLATELET COUNT 341 K/MM3 (134-434); RDW 15.1 % (11.6-15.6); WHITE BLOOD COUNT 8.2 K/mm3 (4.0-10.0)
[2016-08-02] MEDS ORDERED: PANTOPRAZOLE SODIUM 40 MG in SODIUM CHLORIDE 100 ML IVPB ONE (15:48)
--- NOTE | 2016-08-02 16:03 | HP ---
Admitting History and Physical - Primary Care Physician PCP: Margareth Woodard S - Admission Chief Complaint: black stools History of Present Illness: The patient is an 85-year-old woman admitted for black stools over the weekend, accompanied by family, with a significant past medical history of hypertension, hypercholesterolemia, myocardial infarction, coronary artery disease status post stent placements in 2009, renal insufficiency, non-insulin dependent diabetes mellitus and congestive heart failure who presents to the emergency department for further evaluation of rectal bleeding. As per patient, she was just admitted in this hospital from 07/20-07/22 for shortness of breath and tachycardia. During admission she was found to be in atrial fibrillation and was initially placed on a Heparin drip and was subsequently switched to Xarelto. She was noted to have abnormal LFTs. Abdominal ultrasound was performed which showed a normal liver, gallbladder and common bile duct of 3mm. Patient was ultimately discharged and she recalls noting that post discharge, she started to experience diarrhea, reported as loose watery stools. The next day, she noted that her stool was maroon appearing. She had a similar bowel movement two days later. She denies noting any bright red blood/clots. She denies any associated symptoms of abdominal pain, nausea, vomiting, urinary complaints, generalized weakness, fever, chills, visual changes headaches, chest pain,lightheadedness, dizziness, palpitations, cough and shortness of breath. Patient is currently on a baby aspirin and Xarelto. History Source: Patient, Family Member Limitations to Obtaining History: No Limitations - Past Medical History Cardiovascular: Yes: CAD, CHF, HTN Renal/: Yes: Renal Inusuff. No: Hematuria Heme/Onc: Yes: Anemia Musculoskeletal: Yes: Chronic low back pain, Osteoarthritis Endocrine: Yes: Diabetes Mellitus - Past Surgical History Past Surgical History: Yes: Joint Replacement (b/l TKR, partial thyroidectomy) - Smoking History Smoking history: Never smoked Have you smoked in the past 12 months: No Aproximately how many cigarettes per day: 0 - Alcohol/Substance Use Hx Alcohol Use: No History of Substance Use: reports: None - Social History Usual Living Arrangement: Yes: With Significant Other ADL: Independent Occupation: Retired RN History of Recent Travel: No Home Medications - Allergies Allergies/Adverse Reactions: Allergies Allergy/AdvReac Type Severity Reaction Status Date / Time No Known Allergies Allergy Verified 08/02/16 14:14 - Home Medications Home Medications: Ambulatory Orders Allopurinol [Zyloprim -] 300 mg PO AM 09/20/15 Aspirin [Cheo Chewable Aspirin] 81 mg PO DAILY 09/20/15 Atorvastatin Ca [Lipitor] 40 mg PO HS 09/20/15 Glipizide [Glipizide ER] 2.5 mg PO HS 09/20/15 Glipizide [Glipizide ER] 5 mg PO DAILY 09/20/15 Cephalexin Monohydrate [Keflex -] 500 mg PO BID #10 capsule 07/27/16 Metoprolol Succinate [Toprol XL -] 100 mg PO DAILY #90 tab 07/27/16 Rivaroxaban [Xarelto -] 15 mg PO DAILY #90 tablet 07/27/16 Torsemide [Demadex -] 20 mg PO DAILY #90 tablet 07/27/16 Family Disease History - Family Disease History Family Disease History: Other: Father ( 86: "sepsis"), Mother ( 97 "old age") Review of Systems - Review of Systems Constitutional: denies: Chills, Fever, Lethargy, Loss of Appetite Eyes: denies: Blind Spots, Double Vision HENT: denies: Difficult Swallowing, Ear Pain Cardiovascular: denies: Chest Pain, Edema, Palpitations, Shortness of Breath Respiratory: denies: Cough, SOB Gastrointestinal: reports: Melena. denies: Abdominal Pain, Bloating, Constipation, Diarrhea, Vomiting Genitourinary: denies: Discharge, Dysuria, Flank Pain Musculoskeletal: denies: Back Pain, Joint Swelling Integumentary: denies: Bruising, Rash Neurological: denies: Change in LOC, Change in Speech, Confusion, Dizziness Endocrine: denies: Unexplained Weight Loss Hematology/Lymphatic: denies: Easily Bruised, Excessive Bleeding Psychiatric: denies: Altered Sleep Pattern, Anxiety, Depression Physical Examination Vital Signs: Vital Signs Temperature 98.3 F 08/02/16 14:10 Pulse Rate 81 08/02/16 14:10 Respiratory Rate 18 08/02/16 14:10 Blood Pressure 141/59 08/02/16 14:10 O2 Sat by Pulse Oximetry (%) 99 08/02/16 14:10 Constitutional: Yes: No Distress, Calm Eyes: Yes: Conjunctiva Clear HENT: Yes: Atraumatic Neck: Yes: Supple Cardiovascular: Yes: Regular Rate and Rhythm Respiratory: Yes: CTA Bilaterally Gastrointestinal: Yes: Soft. No: Distention, Tenderness Renal/: No: CVA Tenderness - Left, CVA Tenderness - Right Musculoskeletal: No: Joint Stiffness, Joint Swelling Extremities: No: Cold, Cool Edema: No Peripheral Pulses WNL: Yes Integumentary: No: Rash, Venous Stasis Changes Neurological: Yes: WNL, Alert, Oriented ...Motor Strength: WNL Psychiatric: Yes: WNL, Alert, Oriented. No: Agitated, Suicidal Ideation Labs: CBC, BMP 08/02/16 15:23 Imaging - Results Chest X-ray: Report Reviewed Other: Report Reviewed Assessment/Plan The patient is an 85-year-old woman, accompanied by family, with a significant past medical history of hypertension, hypercholesterolemia, myocardial infarction, coronary artery disease status post stent placements, renal insufficiency, non-insulin dependent diabetes mellitus and congestive heart failure who presents to the emergency department for further evaluation of rectal bleeding. As per patient, she was just admitted in this hospital from -07/22 for shortness of breath and tachycardia. During admission she was found to be in atrial fibrillation and was initially placed on a Heparin drip and was subsequently switched to Xarelto. She was noted to have abnormal LFTs. Abdominal ultrasound was performed which showed a normal liver, gallbladder and common bile duct of 3mm. Patient was ultimately discharged and she recalls noting that post discharge, she started to experience diarrhea, reported as loose watery stools. The next day, she noted that her stool was maroon appearing. She had a similar bowel movement two days later. She denies noting any bright red blood/clots. She denies any associated symptoms of abdominal pain , nausea, vomiting, urinary complaints, generalized weakness, fever, chills, visual changes headaches, chest pain,lightheadedness, dizziness, palpitations, cough and shortness of breath. Patient is currently on a baby aspirin and Xarelto. admitted with UGI bleed black stools and Hg 6.5 admit to ICU GI and cardiology eval transfuse 2 U PRBC f/u labs stop ASA and xarelto, d/w pt and sister and brother in law at bedside risks of CVA/IN with hold the blood thinners but risks of GI bleed with continuing the blood thinners will need EGD/ colonoscopy IV PPI NPO for now KENDRICKs SCD to legs OOB falls decubs DVT PFX d/w pt and staff d/w cardiology prognosis guarded t time 75 min
[2016-08-02 16:06] LABS: BILIRUBIN,TOTAL 0.2 mg/dL (0.2-1.0); CALCIUM 8.8 mg/dL (8.5-10.1); COCKROFT - GAULT 25.432; CREATININE 1.8 mg/dL (0.55-1.02); MAGNESIUM 2.2 mg/dL (1.8-2.4); TOT PROT 6.4 g/dl (6.4-8.2)
[2016-08-02 16:09] LABS: TROPONIN I 0.03 ng/ml (0.00-0.05)
[2016-08-02] MEDS ORDERED: PANTOPRAZOLE SODIUM 100 ML IVPB ONE (16:22)
[2016-08-02] MEDS: INSULIN (NOVOLOG) ASPART 100 UNITS/ML 10ML VIAL SQ SCH ×2 (16:49→21:10)
[2016-08-02] MEDS ORDERED: INSULIN (NOVOLOG) ASPART 100 UNITS/ML 10ML VIAL ONE (17:08)
--- NOTE | 2016-08-02 18:04 | CON.CARD ---
Consult Consult Specialty:: Cardiology - History of Present Illness Chief Complaint: melena, weakness History of Present Illness: The patient is an 85-year-old woman, accompanied by family, with a significant past medical history of hypertension, hypercholesterolemia, myocardial infarction, coronary artery disease status post stent placements, renal insufficiency, non-insulin dependent diabetes mellitus and congestive heart failure who presents to the emergency department for further evaluation of rectal bleeding. As per patient, she was just admitted in this hospital from -07/22 for shortness of breath and tachycardia. During admission she was found to be in atrial fibrillation and was initially placed on a Heparin drip and was subsequently switched to Xarelto. She was noted to have abnormal LFTs. Abdominal ultrasound was performed which showed a normal liver, gallbladder and common bile duct of 3mm. Patient was ultimately discharged and she recalls noting that post discharge, she started to experience diarrhea, reported as loose watery stools. The next day, she noted that her stool was maroon appearing. She had a similar bowel movement two days later. She denies noting any bright red blood/clots. She denies any associated symptoms of abdominal pain , nausea, vomiting, urinary complaints, generalized weakness, fever, chills, visual changes headaches, chest pain,lightheadedness, dizziness, palpitations, cough and shortness of breath. Patient is currently on a baby aspirin and Xarelto. Allergies: Penicillin Past Surgical History: Stent Placements. Partial thyroidectomy. 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 No ETOH and recreational drug use. Primary Care Physician: Dr. Margareth Woodard [facility] Department: Dr. Temo Summers s/p 2 drug-eluting (Promus) coronary stents in LAD 2009 Non-obstructive 3 VD on 07/2012 coronary angiogram s/p cataract surgery Ongoing medical problems angina CAD: s/p 2 DEStents to mid-LAD 08/2009 at [facility] by Dr. Ramirez Cor angiogram 07/2012: LM 30stial; prox and midLAD stent sites patent; distal LAD 30% ostial LCx 50% mid LCx 30% RCA prox 30% OM3 40%. Diabetes mellitus, type II Gout Hypercholesterolemia Hyperlipidemia IgM monoclonal gammopathy; anemia overweight - Past Medical History Cardio/Vascular: Yes: CAD, CHF, HTN, Other (atrial tachycardia/a flutter) Renal/: Yes: Renal Inusuff. No: Hematuria Musculoskeletal: Yes: Chronic low back pain, Osteoarthritis Endocrine: Yes: Diabetes Mellitus - Past Surgical History Past Surgical History: Yes: Joint Replacement (b/l TKR, partial thyroidectomy) - Alcohol/Substance Use Hx Alcohol Use: No History of Substance Use: reports: None - Smoking History Smoking history: Never smoked Have you smoked in the past 12 months: No Aproximately how many cigarettes per day: 0 - Social History Usual Living Arrangement: Alone ADL: Independent Occupation: Retired RN History of Recent Travel: No Home Medications - Allergies Allergies/Adverse Reactions: Allergies Allergy/AdvReac Type Severity Reaction Status Date / Time No Known Allergies Allergy Verified 08/02/16 14:14 - Home Medications Home Medications: Ambulatory Orders Allopurinol [Zyloprim -] 300 mg PO AM 09/20/15 Aspirin [Cheo Chewable Aspirin] 81 mg PO DAILY 09/20/15 Atorvastatin Ca [Lipitor] 40 mg PO HS 09/20/15 Glipizide [Glipizide ER] 2.5 mg PO HS 09/20/15 Glipizide [Glipizide ER] 5 mg PO DAILY 09/20/15 Cephalexin Monohydrate [Keflex -] 500 mg PO BID #10 capsule 07/27/16 Metoprolol Succinate [Toprol XL -] 100 mg PO DAILY #90 tab 07/27/16 Rivaroxaban [Xarelto -] 15 mg PO DAILY #90 tablet 07/27/16 Torsemide [Demadex -] 20 mg PO DAILY #90 tablet 07/27/16 Family Disease History - Family Disease History Family Disease History: Other: Father ( 86: "sepsis"), Mother ( 97 "old age") Review of Systems - Review of Systems Constitutional: reports: No Symptoms Eyes: reports: No Symptoms HENT: reports: No Symptoms Neck: reports: No Symptoms Cardiovascular: reports: No Symptoms Gastrointestinal: reports: Melena Genitourinary: reports: No Symptoms Breasts: reports: No Symptoms Reported Musculoskeletal: reports: No Symptoms Integumentary: reports: No Symptoms Neurological: reports: No Symptoms Endocrine: reports: No Symptoms Hematology/Lymphatic: reports: No Symptoms Psychiatric: reports: No Symptoms Vital Signs: Vital Signs Temperature 98.3 F 08/02/16 14:10 Pulse Rate 81 08/02/16 14:10 Respiratory Rate 18 08/02/16 14:10 Blood Pressure 141/59 08/02/16 14:10 O2 Sat by Pulse Oximetry (%) 99 08/02/16 14:10 Constitutional: Yes: Well Nourished, No Distress, Calm Eyes: Yes: WNL, Conjunctiva Clear, EOM Intact HENT: Yes: WNL, Atraumatic, Normocephalic Neck: Yes: WNL, Supple, Trachea Midline Respiratory: Yes: WNL, Regular, CTA Bilaterally Gastrointestinal: Yes: WNL, Normal Bowel Sounds Renal/: Yes: WNL Cardiovascular: Yes: WNL, Regular Rate and Rhythm Musculoskeletal: Yes: WNL Extremities: Yes: WNL Integumentary: Yes: WNL Neurological: Yes: WNL, Alert, Oriented ...Motor Strength: WNL Psychiatric: Yes: WNL, Alert, Oriented Imaging - Results Chest X-ray: Image Reviewed (no i/e) EKG: Image Reviewed (sr 1 st degree avb) Problem List - Problems (1) Gastrointestinal hemorrhage Code(s): K92.2 - GASTROINTESTINAL HEMORRHAGE, UNSPECIFIED (2) Melena Code(s): K92.1 - MELENA (3) Severe anemia Code(s): D64.9 - ANEMIA, UNSPECIFIED (4) Abnormal liver enzymes Code(s): R74.8 - ABNORMAL LEVELS OF OTHER SERUM ENZYMES (5) Anemia Code(s): D64.9 - ANEMIA, UNSPECIFIED (6) Atrial fibrillation with RVR Code(s): I48.91 - UNSPECIFIED ATRIAL FIBRILLATION (7) CAD (coronary artery disease) Code(s): I25.10 - ATHSCL HEART DISEASE OF [place] CORONARY ARTERY W/O ANG PCTRS (8) CHF (congestive heart failure) Code(s): I50.9 - HEART FAILURE, UNSPECIFIED Qualifiers: Congestive heart failure type: unspecified congestive heart failure type Congestive heart failure chronicity: acute Qualified Code(s): I50.9 - Heart failure, unspecified (9) Chronic diastolic (congestive) heart failure Code(s): I50.32 - CHRONIC DIASTOLIC (CONGESTIVE) HEART FAILURE (10) Diabetes Code(s): E11.9 - TYPE 2 DIABETES MELLITUS WITHOUT COMPLICATIONS (11) HTN (hypertension) Code(s): I10 - ESSENTIAL (PRIMARY) HYPERTENSION (12) Hydronephrosis Code(s): N13.30 - UNSPECIFIED HYDRONEPHROSIS (13) Hyperlipidemia Code(s): E78.5 - HYPERLIPIDEMIA, UNSPECIFIED (14) Hyponatremia with decreased serum osmolality Code(s): E87.1 - HYPO-OSMOLALITY AND HYPONATREMIA (15) Shortness of breath Code(s): R06.02 - SHORTNESS OF BREATH Assessment/Plan p. a flutter in s r gi bleed on NOAC s/p 2 drug-eluting (Promus) coronary stents in LAD 2009 Non-obstructive 3 VD on 07/2012 coronary angiogram s/p cataract surgery Ongoing medical problems angina CAD: s/p 2 DEStents to mid-LAD 08/[facility] Ramirez Cor angiogram 07/2012: LM 30stial; prox and midLAD stent sites patent; distal LAD 30% ostial LCx 50% mid LCx 30% RCA prox 30% OM3 40%. Diabetes mellitus, type II Gout Hypercholesterolemia Hyperlipidemia IgM monoclonal gammopathy; anemia overweight Plan transfussion ICU monitoring stop NOAC antiplatelets rx when OK by GI
--- NOTE | 2016-08-02 18:33 | CON.GI ---
Consult Consult Specialty:: GI Referred by:: Dr. Margareth Woodard Reason for Consultation:: Anemia / melena - History of Present Illness Chief Complaint: "I had black stool from monday" History of Present Illness: 85F admitted for evaluation of black bowel movements. They began monday evening , lingering into monday. The last black bowel movement was earlier this morning. She denied any shortness of breath. She was recently admitted for CHF exacerbation, noted to be in A. Fib with RVR and started on Xarelto. She also takes a daily ASA and Plavix had been stopped at her last admission. LFTs were elevated at that time and I felt that it may have been medication related / related to passive congestion. She was also guaiac negative on my exam earlier this month. Hgb at around 3pm today was 6.5 and on 07/27 was 8.8. She was given protonix 40mg IVPB x 1 in ER. The last time she took Xarelto was Monday when she noticed the black BM's started. - History Source History Provided By: Patient Limitations to Obtaining History: No Limitations - Past Medical History Cardio/Vascular: Yes: CAD, CHF, HTN Renal/: Yes: Renal Inusuff. 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year[place] over 30 years ago History of Recent Travel: No Home Medications - Allergies Allergies/Adverse Reactions: Allergies Allergy/AdvReac Type Severity Reaction Status Date / Time No Known Allergies Allergy Verified 08/02/16 14:14 - Home Medications Home Medications: Ambulatory Orders Allopurinol [Zyloprim -] 100 mg PO BID 09/20/15 Aspirin [Cheo Chewable Aspirin] 81 mg PO DAILY 09/20/15 Atorvastatin Ca [Lipitor] 40 mg PO HS 09/20/15 Glipizide [Glipizide ER] 2.5 mg PO HS 09/20/15 Glipizide [Glipizide ER] 5 mg PO DAILY 09/20/15 Cephalexin Monohydrate [Keflex -] 500 mg PO BID #10 capsule 07/27/16 Metoprolol Succinate [Toprol XL -] 100 mg PO DAILY #90 tab 07/27/16 Rivaroxaban [Xarelto -] 15 mg PO DAILY #90 tablet 07/27/16 Torsemide [Demadex -] 20 mg PO DAILY #90 tablet 07/27/16 Family Disease History - Family Disease History Family Disease History: Other: Father ( 86: "sepsis"), Mother ( 97 "old age") Other Family History: 13 siblings, 4 : 3 from ? diabetic complications, 1 from CKD/heart Dz Review of Systems - Review of Systems Constitutional: denies: Chills Cardiovascular: denies: Chest Pain, Shortness of Breath Gastrointestinal: reports: Melena. denies: Abdominal Pain Physical Exam-GI Vital Signs: Vital Signs Temperature 98.0 F 08/02/16 18:16 Pulse Rate 82 08/02/16 18:16 Respiratory Rate 18 08/02/16 18:16 Blood Pressure 118/64 08/02/16 18:16 O2 Sat by Pulse Oximetry (%) 98 08/02/16 18:16 Constitutional: Yes: Calm Eyes: No: Sclera Icterus Cardiovascular: Yes: Pulse Irregular (regular rate) Respiratory: Yes: CTA Bilaterally Gastrointestinal Inspection: No: Distention ...Auscultate: Yes: Normoactive Bowel Sounds ...Palpate: No: Hepatomegaly, Splenomegaly, Tenderness ...Percussion: No: Tympanitic ...Rectal Exam: Yes: Other (Light brown stool, no melena, guaiac +) Edema: No Neurological: Yes: Alert, Oriented Labs: CBC, BMP 08/02/16 15:23 08/02/16 15:23 Hepatic Panel Total Bilirubin 0.2 mg/dL (0.2-1.0) D 08/02/16 15:23 AST 37 U/L (15-37) D 08/02/16 15:23 ALT 62 U/L (12-78) D 08/02/16 15:23 Alkaline Phosphatase 127 U/L (45-117) H D 08/02/16 15:23 Albumin 3.0 g/dl (3.4-5.0) L 08/02/16 15:23 Problem List - Problems (1) Melena Assessment/Plan: Suspect secondary to bleeding ulcer in setting of continued ASA therapy, previous dual antiplatelet therapy and initiation of recent anticoagulation Hemodynamically stable and the melena seems to have cleared up Advised: Clear liquids for tonight Pantoprazole infusion @ 8mg/hr She is to be transfused 2 units PRBC Discussed upper endoscopy with Ms. Fatima. Discussed potential risks of the procedure like but not limited to bleeding, perforation requiring surgery to repair, infection, sedation medication effects all of which could be potentially life threatening. She has agreed to the procedure. Code(s): K92.1 - MELENA
[2016-08-02] MEDS ORDERED: PANTOPRAZOLE SODIUM 80 MG in SODIUM CHLORIDE 100 ML IVPB SCH (19:00)
[2016-08-02] MEDS ORDERED: SODIUM CHLORIDE 1,000 ML IV SCH (19:00)
--- NOTE | 2016-08-02 20:18 | CONSULT ---
Consult Consult Specialty:: PULM/CCM Reason for Consultation:: GIB - History of Present Illness Chief Complaint: maroon stool History of Present Illness: Briefly pt is an 85-year-old woman with PMHX significant for hypertension, hyperlipidemia, CAD, AMI s/p PCI/stent placements, renal insufficiency, non- insulin dependent diabetes mellitus and congestive heart failure and PSVT on Xarelto for who presents to the emergency department for further evaluation of rectal bleeding. Had recent hospitalizationfrom 07/20-07/22 for shortness of breath and tachycardia. During admission she was found to be in atrial fibrillation and was initially placed on a Heparin drip and was subsequently switched to Xarelto. She was noted to have abnormal LFTs workup was unrevealing , felt to be congestive hepatopathy and which ultimately improved. Shortly after discharge from hospital started to experience diarrhea, reported as loose watery stools which soon became maroon appearing. This happened only a few times and intermittently. Pt denies noting any bright red blood/clots, hematemesis, hematuria, syncope, chest pain, palpitations, lightheadedness. In ED pt was normotensive, afebrile, without distress. Hgb noted to be 6.5 down from 8.8 on discharge. She was guiac negative. There was no other localizing symptoms or hx to suggest alternate source of bleeding. No indication of hemolysis, Tbili wnl. Started on protonix. PRBC ordered. GI/DiGiorno consulted and pt consented for EGD. Plan for overnight PRBC resusitation and scope in am likely. - Past Medical History Cardio/Vascular: Yes: CAD, CHF, HTN Renal/: Yes: Renal Inusuff. 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 Home Medications - Allergies Allergies/Adverse Reactions: Allergies Allergy/AdvReac Type Severity Reaction Status Date / Time No Known Allergies Allergy Verified 08/02/16 14:14 - Home Medications Home Medications: Ambulatory Orders Allopurinol [Zyloprim -] 100 mg PO BID 09/20/15 Aspirin [Cheo Chewable Aspirin] 81 mg PO DAILY 09/20/15 Atorvastatin Ca [Lipitor] 40 mg PO HS 09/20/15 Glipizide [Glipizide ER] 2.5 mg PO HS 09/20/15 Glipizide [Glipizide ER] 5 mg PO DAILY 09/20/15 Cephalexin Monohydrate [Keflex -] 500 mg PO BID #10 capsule 07/27/16 Metoprolol Succinate [Toprol XL -] 100 mg PO DAILY #90 tab 07/27/16 Rivaroxaban [Xarelto -] 15 mg PO DAILY #90 tablet 07/27/16 Torsemide [Demadex -] 20 mg PO DAILY #90 tablet 07/27/16 Family Disease History - Family Disease History Family Disease History: Other: Father ( 86: "sepsis"), Mother ( 97 "old age") Other Family History: 13 siblings, 4 : 3 from ? diabetic complications, 1 from CKD/heart Dz Review of Systems Findings/Remarks: as per HPI - Review of Systems Constitutional: reports: No Symptoms Eyes: reports: No Symptoms HENT: reports: No Symptoms Neck: reports: No Symptoms Cardiovascular: denies: Chest Pain, Palpitations, Shortness of Breath Respiratory: denies: Hemoptysis, SOB on Exertion Gastrointestinal: reports: Diarrhea (maroon stool), Melena, Rectal Bleeding Genitourinary: reports: No Symptoms. denies: Vaginal Bleeding Breasts: reports: No Symptoms Reported Musculoskeletal: reports: No Symptoms Integumentary: reports: No Symptoms Neurological: reports: No Symptoms Endocrine: reports: No Symptoms Hematology/Lymphatic: reports: No Symptoms Psychiatric: reports: No Symptoms Physical Exam Vital Signs: Vital Signs Temperature 97.7 F 08/02/16 20:00 Pulse Rate 78 08/02/16 20:00 Respiratory Rate 20 08/02/16 20:00 Blood Pressure 135/65 08/02/16 20:00 O2 Sat by Pulse Oximetry (%) 98 08/02/16 18:16 Constitutional: Yes: Well Nourished, No Distress Eyes: Yes: Conjunctiva Clear, EOM Intact HENT: Yes: Atraumatic, Normocephalic Neck: Yes: Trachea Midline Cardiovascular: Yes: Regular Rate and Rhythm. No: Murmur Respiratory: Yes: CTA Bilaterally. No: Accessory Muscle Use Gastrointestinal: Yes: Normal Bowel Sounds, Soft. No: Hepatomegaly, Tenderness , Rebound, Vomiting ...Rectal Exam: Yes: Guaiac Negative Renal/: Yes: WNL Breast(s): Yes: WNL Extremities: Yes: WNL Edema: Yes Edema: LLE: Trace, RLE: Trace Integumentary: Yes: WNL Neurological: Yes: Alert, Oriented ...Motor Strength: WNL Psychiatric: Yes: Alert, Oriented Imaging - Results EKG: Image Reviewed (SR, normal axis, no ST changes. 1st degree AV block) Problem List - Problems (1) Gastrointestinal hemorrhage Code(s): K92.2 - GASTROINTESTINAL HEMORRHAGE, UNSPECIFIED (2) Melena Code(s): K92.1 - MELENA (3) Severe anemia Code(s): D64.9 - ANEMIA, UNSPECIFIED (4) Atrial fibrillation with RVR Code(s): I48.91 - UNSPECIFIED ATRIAL FIBRILLATION (5) CHF (congestive heart failure) Code(s): I50.9 - HEART FAILURE, UNSPECIFIED Qualifiers: Congestive heart failure type: unspecified congestive heart failure type Congestive heart failure chronicity: acute Qualified Code(s): I50.9 - Heart failure, unspecified Assessment/Plan Pulm/CCM Pt seen and examined in ICU A/ 82 y/o woman with hx of CHF, AMI, Afib on single anti-plt therapy and xarelto p/w anemia and maroon stools P/ -GI following, recs appreciated and likely to scope in AM - PRBC now with repeat in 6hr -hold anti-plt and xarelto -PPI -hold BB -glucose control - SCD, no heparin -monitor in ICU for stable CBC x 2, ? EGD Roderick Patel ACNP [phone]
[2016-08-02] MEDS: PANTOPRAZOLE SODIUM 80 MG in SODIUM CHLORIDE 100 ML IVPB SCH (20:52)
[2016-08-02] MEDS: ALLOPURINOL 100 MG TABLET (FP) PO SCH (21:09)
[2016-08-02] MEDS: ATORVASTATIN CA 40 MG TABLET (FP) PO SCH (21:09)
[2016-08-02] MEDS: CHLORHEXIDINE GLUCONATE 4% CLEANSER FOR DECOLONIZATION TP SCH (21:09)
[2016-08-02] MEDS: MUPIROCIN 2% TOPICAL OINTMENT FOR DECOLONIZATION NS SCH (21:10)
[2016-08-02] MEDS ORDERED: PANTOPRAZOLE SODIUM 100 ML IVPB SCH (22:00)
[2016-08-03] MEDS: PANTOPRAZOLE SODIUM 80 MG in SODIUM CHLORIDE 100 ML IVPB SCH (05:00)
[2016-08-03 06:21] LABS: INR 1.4 (0.82-1.09); PROTHROMBIN TIME (PATIENT) 15.5 SEC (9.98-11.88)
[2016-08-03 06:33] LABS: MAGNESIUM 2.2 mg/dL (1.8-2.4); PHOSPHOROUS 4.4 mg/dL (2.5-4.9)
[2016-08-03] MEDS: INSULIN (NOVOLOG) ASPART 100 UNITS/ML 10ML VIAL SQ SCH ×4 (06:34→21:42)
--- NOTE | 2016-08-03 08:12 | EKG ---
Test Reason : Blood Pressure : / mmHG Vent. Rate : 079 BPM Atrial Rate : 079 BPM P-R Int : 292 ms QRS Dur : 076 ms QT Int : 414 ms P-R-T Axes : 103 -09 062 degrees QTc Int : 474 ms SINUS RHYTHM WITH 1ST DEGREE A-V BLOCK OTHERWISE NORMAL ECG WHEN COMPARED WITH ECG OF 20-JUL-2016 17:15, SINUS RHYTHM HAS REPLACED ATRIAL FLUTTER T WAVE VARIATION Confirmed by SAM TRUONG, DANNY ([id number]) on 08/03/2016 8:12:19 AM Referred By: Confirmed By:DANNY VARGAS MD
--- NOTE | 2016-08-03 08:48 | PN ---
Progress Note, Physician Chief Complaint: in ICU no further bleeding, HG 8.5 after 2 U [facility] for EGD per GI - Current Medication List Current Medications: Active Medications Allopurinol (Zyloprim -) 100 mg PO BID [facility] Last Admin: 08/02/16 21:09 Dose: Not Given Atorvastatin Calcium (Lipitor -) 40 mg PO HS [facility] Last Admin: 08/02/16 21:09 Dose: Not Given Chlorhexidine Gluconate (Hibiclens For Decolonization -) 1 applic TP HS [facility] Last Admin: 08/02/16 21:09 Dose: 1 applic Sodium Chloride (Normal Saline -) 1,000 mls @ 75 mls/hr IV ASDIR [facility] Last Admin: 08/02/16 19:00 Dose: 75 mls/hr Pantoprazole Sodium 80 mg/ (Sodium Chloride) 100 mls @ 10 mls/hr IVPB Q10H [facility] PRN Reason: 8 MG/HR Last Admin: 08/03/16 05:00 Dose: 10 mls/hr Insulin Aspart (Novolog Vial) 0 units SQ ACHS [facility] PRN Reason: Protocol Last Admin: 08/03/16 06:34 Dose: Not Given Metoprolol Succinate (Toprol Xl -) 100 mg PO DAILY [facility] Mupirocin (Bactroban Ointment (For Decolonization) -) 1 applic NS BID [facility] Stop: 08/07/16 21:59 Last Admin: 08/02/16 21:10 Dose: 1 applic Torsemide (Demadex -) 20 mg PO DAILY [facility] - Objective Vital Signs: Vital Signs Temperature 98.2 F 08/03/16 06:00 Pulse Rate 33 L 08/03/16 06:00 Respiratory Rate 20 08/03/16 06:00 Blood Pressure 157/64 08/03/16 06:00 O2 Sat by Pulse Oximetry (%) 98 08/02/16 20:24 Constitutional: Yes: No Distress, Calm Eyes: Yes: Conjunctiva Clear HENT: Yes: Atraumatic Neck: Yes: Supple Cardiovascular: Yes: Regular Rate and Rhythm Respiratory: Yes: CTA Bilaterally Gastrointestinal: Yes: Soft. No: Distention, Tenderness Genitourinary: No: CVA Tenderness - Left, CVA Tenderness - Right, Hematuria Musculoskeletal: No: Joint Stiffness, Joint Swelling Extremities: No: Cold, Cool, Cyanosis Edema: No Peripheral Pulses WNL: Yes Integumentary: No: Rash, Venous Stasis Changes Neurological: Yes: WNL, Alert, Oriented ...Motor Strength: WNL Psychiatric: Yes: WNL, Alert, Oriented. No: Agitated, Suicidal Ideation Labs: INR, PTT INR 1.40 (0.82-1.09) H 08/02/16 05:20 - ....Imaging Other: Report Reviewed Assessment/Plan The patient is an 85-year-old woman, accompanied by family, with a significant past medical history of hypertension, hypercholesterolemia, myocardial infarction, coronary artery disease status post stent placements, renal insufficiency, non-insulin dependent diabetes mellitus and congestive heart failure who presents to the emergency department for further evaluation of rectal bleeding. As per patient, she was just admitted in this hospital from -07/22 for shortness of breath and tachycardia. During admission she was found to be in atrial fibrillation and was initially placed on a Heparin drip and was subsequently switched to Xarelto. She was noted to have abnormal LFTs. Abdominal ultrasound was performed which showed a normal liver, gallbladder and common bile duct of 3mm. Patient was ultimately discharged and she recalls noting that post discharge, she started to experience diarrhea, reported as loose watery stools. The next day, she noted that her stool was maroon appearing. She had a similar bowel movement two days later. She denies noting any bright red blood/clots. She denies any associated symptoms of abdominal pain , nausea, vomiting, urinary complaints, generalized weakness, fever, chills, visual changes headaches, chest pain,lightheadedness, dizziness, palpitations, cough and shortness of breath. Patient is currently on a baby aspirin and Xarelto. admitted with UGI bleed black stools and Hg 6.5 admit to ICU GI and cardiology eval transfused 2 U PRBC, Hg 8.5 f/u labs stopped ASA and xarelto, d/w pt and sister at bedside risks of CVA/IN with hold the blood thinners but risks of GI bleed with continuing the blood thinners will need EGD/ colonoscopy IV PPI NPO for now TEDs SCD to legs OOB falls decubs DVT PFX d/w pt and staff, pt agreed with plan d/w cardiology prognosis guarded t time 35
[2016-08-03 08:49] LABS: BASOPHIL 1.1 % (0-2.0); EOSINOPHIL 2.3 % (0-4.5); MCHC 33.1 g/dl (32.0-36.0); MEAN CELL VOLUME 90.7 fl (80-96); MEAN PLT VOLUME 8.9 fl (7.5-11.1); PLATELET COUNT 307 K/MM3 (134-434); RDW 15.2 % (11.6-15.6)
--- NOTE | 2016-08-03 09:14 | PN ---
Physical Exam: SUBJECTIVE: Patient seen and examined at bed side in ICU. Patient reports feeling well, more energy. patietn reports last BM yesterday. black than brown in color. denies sob, Cp, BARNETT, light headedness, N/V/D s/p 2 units of PRBC, w good response, Hb 6.5 to 8.5. for possible endoscopy today. OBJECTIVE: Vital Signs Period Temp Pulse Resp BP Sys/De La O Pulse Ox Last 24 Hr 97.7 F-98.2 F 33-84 16-20 122-157/55-69 97-98 GENERAL: The patient is awake, alert, and fully oriented, in no acute distress. sitting up in chair tahnwwalked to bed and climbed in to bed. HEAD: Normal with no signs of trauma. EYES: extraocular movements intact, sclera anicteric, conjunctiva clear. ENT: Ears normal, nares patent, oropharynx clear without exudates, moist mucous membranes. NECK: Trachea midline, full range of motion, supple. LUNGS: Breath sounds equal, clear to auscultation bilaterally, no wheezes, no crackles, no accessory muscle use. HEART: Regular rate and rhythm, S1, S2 without murmur, rub or gallop. ABDOMEN: Soft, mild diffused tenderness, nondistended, normoactive bowel sounds , no guarding, no rebound, no hepatosplenomegaly, no masses. EXTREMITIES: 2+ pulses, warm, well-perfused, no edema. NEUROLOGICAL: no facial asymmetry, Normal speech, normal gait PSYCH: Normal mood, normal affect. SKIN: Warm, dry, normal turgor, no rashes or lesions noted Laboratory Results - last 24 hr 08/02/16 08/02/16 08/02/16 16:36 17:40 18:11 WBC RBC Hgb Hct MCV MCHC RDW Plt Count MPV Neutrophils % Lymphocytes % Monocytes % Eosinophils % Basophils % POC Glucometer [phone] Lactic Acid 1.380 Phosphorus Magnesium Blood Type O POSITIVE 08/03/16 08/03/16 08/03/16 05:20 05:38 06:09 WBC 7.0 RBC 2.82 L D Hgb 8.5 L D Hct 25.6 L D MCV 90.7 MCHC 33.1 RDW 15.2 Plt Count 307 MPV 8.9 Neutrophils % 57.0 Lymphocytes % 30.7 D Monocytes % 8.9 Eosinophils % 2.3 Basophils % 1.1 POC Glucometer [phone] Lactic Acid Phosphorus 4.4 D Magnesium 2.2 Blood Type Active Medications Generic Name Dose Route Start Last Admin Trade Name Freq PRN Reason Stop Dose Admin Al Hydroxide/Mg Hydroxide 30 ml 08/03/16 12:45 Mylanta Oral Suspension - PO Q6H PRN Allopurinol 100 mg 08/02/16 22:00 08/03/16 13:38 Zyloprim - PO Not Given BID ROBI Aspirin 81 mg 08/04/16 10:00 Ecotrin - PO DAILY ROBI Atorvastatin Calcium 40 mg 08/02/16 22:00 08/02/16 21:09 Lipitor - PO Not Given HS ROBI Chlorhexidine Gluconate 1 applic 08/02/16 22:00 08/02/16 21:09 Hibiclens For Decolonization - TP 1 applic HS ROBI Administration Sodium Chloride 1,000 mls @ 75 mls/hr 08/02/16 19:00 08/02/16 19:00 Normal Saline - IV 75 mls/hr ASDIR ROBI Administration Insulin Aspart 0 units 08/02/16 16:30 08/03/16 11:17 Novolog Vial SQ Not Given ACHS [facility] Protocol Metoprolol Succinate 100 mg 08/03/16 10:00 08/03/16 09:45 Toprol Xl - PO 100 mg DAILY RBOI Administration Mupirocin 1 applic 08/02/16 22:00 08/03/16 13:40 Bactroban Ointment (For Decolonization) - NS 08/07/16 21:59 1 applic BID ROBI Administration Pantoprazole Sodium 40 mg 08/03/16 13:15 08/03/16 13:40 Protonix - PO 40 mg BID ROBI Administration ASSESSMENT/PLAN: A/ 82 y/o woman with hx of CHF, AMI, Afib on single anti-plt therapy and xarelto p/w anemia and maroon stools Gastrointestinal hemorrhage s/p EGD found Multiple shallow gastric antrum ulcers and a single duodenal bulb ulcer were found to be not bleeding any longer. Advised repeat EGD in 3 months. Given her stents can continue aspirin but would avoid other antiplatelet agents per GI. Advance diet NSAIDs continue protonixs Severe anemia blood loss anemia v IgM monoclonal gammopathy s/p 2 units PRMC with good response; currently repeat CBC at 4pm A flutter: currently SR CAD s/p 2 drug-eluting (Promus) coronary stents in LAD 2009 Non-obstructive 3 VD on 07/2012 coronary angiogram OK with GI and cardio wto start asa stop NOAC Acute on Chronic Renal Insufficiency: stable, improving oral hydration d/c fluids Trend BUN/Cr avoid NSAIDs, IV Contrast, BERNARDA/ARB Diabetes ISS HTN: Metoprolol Succinate d/c fluids Hydronephrosis Hyperlipidemia continue Atorvastatin Calcium Gout continue Allopurinol FEN diebetic diet oral hydration replete electrolyte as needed. Dispo: Discussed with PCP will tranfer to [facility] floor. Visit type - Emergency Visit Emergency Visit: Yes ED Registration Date: 08/02/16 Care time: The patient presented to the Emergency Department on the above date and was hospitalized for further evaluation of their emergent condition. - New Patient This patient is new to me today: Yes Date on this admission: 08/02/16 - Critical Care Critical Care patient: Yes Total Critical Care Time (in minutes): 46 Critical Care Statement: The care of this patient involved high complexity decision making to prevent further life threatening deterioration of the patient 's condition and/or to evalute & treat vital organ system(s) failure or risk of failure.
[2016-08-03 09:20] LABS: INR 1.4 (0.82-1.09); PROTHROMBIN TIME (PATIENT) 15.5 SEC (9.98-11.88)
[2016-08-03 09:22] LABS: ACTIVATED PTT 29.5 SECONDS (26.9-34.4)
[2016-08-03] MEDS ORDERED: TORSEMIDE 20 MG TABLET (FP) PO SCH (10:00)
[2016-08-03] MEDS ORDERED: METOPROLOL SUCCINATE 100 MG TAB.SR.24H (FP) PO SCH (10:00)
[2016-08-03 11:27] LABS: ALBUMIN 2.8 g/dl (3.4-5.0); BILIRUBIN,TOTAL 0.6 mg/dL (0.2-1.0); CALCIUM 8.5 mg/dL (8.5-10.1); COCKROFT - GAULT 30.515; CREATININE 1.5 mg/dL (0.55-1.02); FERRITIN 174.524 ng/ml (6.9-282.5); TOT PROT 5.7 g/dl (6.4-8.2)
[2016-08-03] MEDS ORDERED: ETOMIDATE 20 MG/10 ML AMPUL IVPUSH ONE (11:37)
[2016-08-03] MEDS ORDERED: ESMOLOL HCL 10 ML ONE (11:37)
[2016-08-03] MEDS ORDERED: TETRACAINE/BENZOCAINE/BUTAMBEN 20 GM SPR TP ONE (12:00)
[2016-08-03] MEDS ORDERED: LABETALOL HCL 5 MG/1 ML (100MG/20 ML VIAL) ONE (12:08)
--- NOTE | 2016-08-03 12:21 | PN ---
Progress Note, Physician History of Present Illness: The patient is an 85-year-old woman, accompanied by family, with a significant past medical history of hypertension, hypercholesterolemia, myocardial infarction, coronary artery disease status post stent placements, renal insufficiency, non-insulin dependent diabetes mellitus and congestive heart failure who presents to the emergency department for further evaluation of rectal bleeding. As per patient, she was just admitted in this hospital from -07/22 for shortness of breath and tachycardia. During admission she was found to be in atrial fibrillation and was initially placed on a Heparin drip and was subsequently switched to Xarelto. She was noted to have abnormal LFTs. Abdominal ultrasound was performed which showed a normal liver, gallbladder and common bile duct of 3mm. Patient was ultimately discharged and she recalls noting that post discharge, she started to experience diarrhea, reported as loose watery stools. The next day, she noted that her stool was maroon appearing. She had a similar bowel movement two days later. She denies noting any bright red blood/clots. She denies any associated symptoms of abdominal pain , nausea, vomiting, urinary complaints, generalized weakness, fever, chills, visual changes headaches, chest pain,lightheadedness, dizziness, palpitations, cough and shortness of breath. Patient is currently on a baby aspirin and Xarelto. Allergies: Penicillin Past Surgical History: Stent Placements. Partial thyroidectomy. 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 No ETOH and recreational drug use. Primary Care Physician: Dr. Margareth Woodard Brazer Production Line: Dr. Temo Summers s/p 2 drug-eluting (Promus) coronary stents in LAD 2009 Non-obstructive 3 VD on 07/2012 coronary angiogram s/p cataract surgery Ongoing medical problems angina CAD: s/p 2 DESt[facility] Cor angiogram 07/2012: LM 30stial; prox and midLAD stent sites patent; distal LAD 30% ostial LCx 50% mid LCx 30% RCA prox 30% OM3 40%. Diabetes mellitus, type II Gout Hypercholesterolemia Hyperlipidemia IgM monoclonal gammopathy; anemia overweight - Current Medication List Current Medications: Active Medications Allopurinol (Zyloprim -) 100 mg PO BID ROBI Last Admin: 08/02/16 21:09 Dose: Not Given Atorvastatin Calcium (Lipitor -) 40 mg PO HS COUNT [facility]CLUDES [facility] Last Admin: 08/02/16 21:09 Dose: Not Given Chlorhexidine Gluconate (Hibiclens For Decolonization -) 1 applic TP HS COUNT [facility]CLUDES [facility] Last Admin: 08/02/16 21:09 Dose: 1 applic Sodium Chloride (Normal Saline -) 1,000 mls @ 75 mls/hr IV ASDIR COUNT INCLUDES [facility] Last Admin: 08/02/16 19:00 Dose: 75 mls/hr Pantoprazole Sodium 80 mg/ (Sodium Chloride) 100 mls @ 10 mls/hr IVPB Q10H COUNT INCLUDES [facility] PRN Reason: 8 MG/HR Last Admin: 08/03/16 05:00 Dose: 10 mls/hr Insulin Aspart (Novolog Vial) 0 units SQ ACHS COUNT [facility]CLUDES [facility] PRN Reason: Protocol Last Admin: 08/03/16 11:17 Dose: Not Given Metoprolol Succinate (Toprol Xl -) 100 mg PO DAILY COUNT [facility]CLUDES [facility] Last Admin: 08/03/16 09:45 Dose: 100 mg Mupirocin (Bactroban Ointment (For Decolonization) -) 1 applic NS BID COUNT [facility]CLUDES [facility] Stop: 08/07/16 21:59 Last Admin: 08/02/16 21:10 Dose: 1 applic Torsemide (Demadex -) 20 mg PO DAILY COUNT [facility]CLUDES [facility] - Objective Vital Signs: Vital Signs Temperature 98.0 F 08/03/16 10:00 Pulse Rate 64 08/03/16 10:28 Respiratory Rate 20 08/03/16 10:00 Blood Pressure 182/76 08/03/16 10:00 O2 Sat by Pulse Oximetry (%) 97 08/03/16 10:28 Eyes: Yes: WNL, Conjunctiva Clear, EOM Intact HENT: Yes: WNL, Atraumatic, Normocephalic Neck: Yes: WNL, Supple, Trachea Midline Cardiovascular: Yes: WNL, Regular Rate and Rhythm Respiratory: Yes: WNL, Regular, CTA Bilaterally Gastrointestinal: Yes: WNL, Normal Bowel Sounds Genitourinary: Yes: WNL Musculoskeletal: Yes: WNL Extremities: Yes: WNL Edema: No Integumentary: Yes: WNL Neurological: Yes: WNL, Alert, Oriented ...Motor Strength: WNL Psychiatric: Yes: WNL Labs: CBC, BMP 08/03/16 05:38 08/03/16 05:38 INR, PTT INR 1.40 (0.82-1.09) H 08/03/16 05:20 Laboratory Tests 08/02/16 08/02/16 08/02/16 05:20 15:23 15:23 WBC 8.2 RBC 2.13 L D Hgb 6.5 L* D Hct 19.8 L D MCV 93.2 MCHC 32.6 RDW 15.1 Plt Count 341 MPV 8.4 Neutrophils % Lymphocytes % Monocytes % Eosinophils % Basophils % INR 1.40 H PTT (Actin FS) 30.0 Sodium Potassium Chloride Carbon Dioxide Anion Gap BUN Creatinine Creat Clearance w eGFR POC Glucometer Random Glucose Lactic Acid Calcium Phosphorus Magnesium Ferritin Total Bilirubin AST ALT Alkaline Phosphatase Creatine Kinase Troponin I B-Natriuretic Peptide Total Protein Albumin Stool Occult Blood Blood Type O POSITIVE Antibody Screen Negative Crossmatch See Detail 08/02/16 08/02/16 08/02/16 15:23 15:23 16:36 WBC RBC Hgb Hct MCV MCHC RDW Plt Count MPV Neutrophils % Lymphocytes % Monocytes % Eosinophils % Basophils % INR PTT (Actin FS) Sodium 139 Potassium 4.7 Chloride 95 L Carbon Dioxide 30 Anion Gap 14 BUN 60 H D Creatinine 1.8 H Creat Clearance w eGFR 26.87 POC Glucometer 253.33924 Random Glucose 233 H D Lactic Acid Calcium 8.8 Phosphorus Magnesium 2.2 D Ferritin Total Bilirubin 0.2 D AST 37 D ALT 62 D Alkaline Phosphatase 127 H D Creatine Kinase 61 Troponin I 0.03 B-Natriuretic Peptide 781.30 H Total Protein 6.4 Albumin 3.0 L Stool Occult Blood Negative Blood Type Antibody Screen Crossmatch 08/02/16 08/02/16 08/02/16 17:40 18:11 21:08 WBC RBC Hgb Hct MCV MCHC RDW Plt Count MPV Neutrophils % Lymphocytes % Monocytes % Eosinophils % Basophils % INR PTT (Actin FS) Sodium Potassium Chloride Carbon Dioxide Anion Gap BUN Creatinine Creat Clearance w eGFR POC Glucometer 99.81938 Random Glucose Lactic Acid 1.380 Calcium Phosphorus Magnesium Ferritin Total Bilirubin AST ALT Alkaline Phosphatase Creatine Kinase Troponin I B-Natriuretic Peptide Total Protein Albumin Stool Occult Blood Blood Type O POSITIVE Antibody Screen Crossmatch 08/03/16 08/03/16 08/03/16 05:20 05:20 05:38 WBC 7.0 RBC 2.82 L D Hgb 8.5 L D Hct 25.6 L D MCV 90.7 MCHC 33.1 RDW 15.2 Plt Count 307 MPV 8.9 Neutrophils % 57.0 Lymphocytes % 30.7 D Monocytes % 8.9 Eosinophils % 2.3 Basophils % 1.1 INR 1.40 H PTT (Actin FS) 29.5 Sodium 146 H Potassium 4.5 Chloride 107 D Carbon Dioxide 30 Anion Gap 9 BUN 47 H D Creatinine 1.5 H Creat Clearance w eGFR 33.16 POC Glucometer Random Glucose 94 D Lactic Acid Calcium 8.5 Phosphorus 4.4 D Magnesium 2.2 Ferritin 174.524 Total Bilirubin 0.6 D AST 28 D ALT 51 Alkaline Phosphatase 102 Creatine Kinase Troponin I B-Natriuretic Peptide Total Protein 5.7 L Albumin 2.8 L Stool Occult Blood Blood Type Antibody Screen Crossmatch 08/03/16 08/03/16 08/03/16 05:38 06:09 10:11 WBC RBC Hgb Hct MCV MCHC RDW Plt Count MPV Neutrophils % Lymphocytes % Monocytes % Eosinophils % Basophils % INR PTT (Actin FS) Sodium Cancelled Potassium Cancelled Chloride Cancelled Carbon Dioxide Cancelled Anion Gap Cancelled BUN Cancelled Creatinine Cancelled Creat Clearance w eGFR Cancelled POC Glucometer 117.25021 143.75146 Random Glucose Cancelled Lactic Acid Calcium Cancelled Phosphorus Magnesium Ferritin Cancelled Total Bilirubin Cancelled AST Cancelled ALT Cancelled Alkaline Phosphatase Cancelled Creatine Kinase Troponin I B-Natriuretic Peptide Total Protein Cancelled Albumin Cancelled Stool Occult Blood Blood Type Antibody Screen Crossmatch Problem List - Problems (1) Gastrointestinal hemorrhage Code(s): K92.2 - GASTROINTESTINAL HEMORRHAGE, UNSPECIFIED (2) Melena Code(s): K92.1 - MELENA (3) Severe anemia Code(s): D64.9 - ANEMIA, UNSPECIFIED (4) Abnormal liver enzymes Code(s): R74.8 - ABNORMAL LEVELS OF OTHER SERUM ENZYMES (5) Anemia Code(s): D64.9 - ANEMIA, UNSPECIFIED (6) Atrial fibrillation with RVR Code(s): I48.91 - UNSPECIFIED ATRIAL FIBRILLATION (7) CAD (coronary artery disease) Code(s): I25.10 - ATHSCL HEART DISEASE OF [place] CORONARY ARTERY W/O ANG PCTRS (8) CHF (congestive heart failure) Code(s): I50.9 - HEART FAILURE, UNSPECIFIED Qualifiers: Congestive heart failure type: unspecified congestive heart failure type Congestive heart failure chronicity: acute Qualified Code(s): I50.9 - Heart failure, unspecified (9) Chronic diastolic (congestive) heart failure Code(s): I50.32 - CHRONIC DIASTOLIC (CONGESTIVE) HEART FAILURE (10) Diabetes Code(s): E11.9 - TYPE 2 DIABETES MELLITUS WITHOUT COMPLICATIONS (11) HTN (hypertension) Code(s): I10 - ESSENTIAL (PRIMARY) HYPERTENSION (12) Hydronephrosis Code(s): N13.30 - UNSPECIFIED HYDRONEPHROSIS (13) Hyperlipidemia Code(s): E78.5 - HYPERLIPIDEMIA, UNSPECIFIED (14) Hyponatremia with decreased serum osmolality Code(s): E87.1 - HYPO-OSMOLALITY AND HYPONATREMIA (15) Shortness of breath Code(s): R06.02 - SHORTNESS OF BREATH Assessment/Plan p. a flutter in s r gi bleed on NOAC s/p 2 drug-eluting (Promus) coronary stents in LAD 2009 Non-obstructive 3 VD on 07/2012 coronary angiogram s/p cataract surgery Ongoing medical problems angina CAD: s/p 2 DEStents to mid-LAD 08/2009 at [facility] by Dr. Ramirez Cor angiogram 07/2012: LM 30stial; prox and midLAD stent sites patent; distal LAD 30% ostial LCx 50% mid LCx 30% RCA prox 30% OM3 40%. Diabetes mellitus, type II Gout Hypercholesterolemia Hyperlipidemia IgM monoclonal gammopathy; anemia overweight Plan transfussion ICU monitoring stop NOAC antiplatelets rx when OK by GI
--- NOTE | 2016-08-03 12:35 | PN ---
Teaching Attending Note Name of Resident: Geo Tabares ATTENDING PHYSICIAN STATEMENT I saw and evaluated the patient. I reviewed the resident's note and discussed the case with the resident. I agree with the resident's findings and plan as documented. SUBJECTIVE: Pt seen and examined in the ICU. No bleeding overnight. Denies abdominal pain, nausea or vomiting. No shortness of breath or chest pain. In sinus rhythm with 1st degree AV block. OBJECTIVE: Last Vital Signs Temp Pulse Resp BP Pulse Ox 98.0 F 64 20 182/76 97 08/03/16 10:00 08/03/16 10:28 08/03/16 10:00 08/03/16 10:00 08/03/16 10:28 Intake & Output 07/31/16 08/01/16 08/02/16 08/03/16 23:59 23:59 23:59 23:59 Intake Total 700 1300 Output Total 700 Balance 0 1300 Weight 150 lb Gen: NAD at rest Heart: RRR Lung: decreased breath sounds at the bases Abd: soft, nontender Ext: no edema CBC, BMP 08/03/16 05:38 08/03/16 05:38 Active Medications Allopurinol (Zyloprim -) 100 mg PO BID [facility] Last Admin: 08/02/16 21:09 Dose: Not Given Atorvastatin Calcium (Lipitor -) 40 mg PO HS [facility] Last Admin: 08/02/16 21:09 Dose: Not Given Chlorhexidine Gluconate (Hibiclens For Decolonization -) 1 applic TP HS [facility] Last Admin: 08/02/16 21:09 Dose: 1 applic Sodium Chloride (Normal Saline -) 1,000 mls @ 75 mls/hr IV ASDIR [facility] Last Admin: 08/02/16 19:00 Dose: 75 mls/hr Pantoprazole Sodium 80 mg/ (Sodium Chloride) 100 mls @ 10 mls/hr IVPB Q10H ROBI PRN Reason: 8 MG/HR Last Admin: 08/03/16 05:00 Dose: 10 mls/hr Insulin Aspart (Novolog Vial) 0 units SQ ACHS ROBI PRN Reason: Protocol Last Admin: 08/03/16 11:17 Dose: Not Given Metoprolol Succinate (Toprol Xl -) 100 mg PO DAILY [facility] Last Admin: 08/03/16 09:45 Dose: 100 mg Mupirocin (Bactroban Ointment (For Decolonization) -) 1 applic NS BID [facility] Stop: 08/07/16 21:59 Last Admin: 08/02/16 21:10 Dose: 1 applic Torsemide (Demadex -) 20 mg PO DAILY [facility] ASSESSMENT AND PLAN: GI Bleed likely upper Anemia Paroxysmal Atrial Fibrillation CAD on ASA - monitor H/H - transfuse as needed - holding anticoagulation - protonix gtt - beta trace - NPO - IVF - for endoscopy today - DVT prophylaxis
--- NOTE | 2016-08-03 12:39 | PN ---
Progress Note (short form) - Note Progress Note: GI Procedure NOte: Please see scanned and chart report of EGD. Multiple shallow gastric antrum ulcers and a single duodenal bulb ulcer were found to be not bleeding any longer. I had obtained an informed consent for colonoscopy tomorrow but given the active ulcers this can be deferred until the ulcers heal. Given her stents can continue aspirin but would avoid other antiplatelet agents. Will advance diet. Advised repeat EGD in 3 months.
[2016-08-03] MEDS ORDERED: MAG HYDROX/AL HYDROX/SIMETH 30 ML UNIT-DOSE CUP PO PRN (12:45)
--- NOTE | 2016-08-03 13:07 | PN ---
Progress Note (short form) - Note Progress Note: Renal Follow up for JET on CKD This is a 85 year old woman with PMhx of CKD, Hypertension, CAD, NIDDM who presented with Melena and found to have acute on chronic anemia. S/p recent admission for CHF/JET with new Afib. Pt started on A/C last admission. S/p EGD that showed Gastric Ulcers. S/p 2 PRBC transfusion. Vital Signs Temperature 97.6 F 08/03/16 12:45 Pulse Rate 74 08/03/16 12:45 Respiratory Rate 18 08/03/16 12:45 Blood Pressure 146/74 08/03/16 12:45 O2 Sat by Pulse Oximetry (%) 97 08/03/16 10:28 Intake & Output 07/31/16 08/01/16 08/02/16 08/03/16 23:59 23:59 23:59 23:59 Intake Total 700 1200 Output Total 700 Balance 0 1200 Weight 150 lb Gen: NAD, awake and alert HEENT: NC/AT, MMM, No JVD CVS: RRR, No M/R Lungs: CTA Abd: soft NT/ND Ext: No edema CBC, BMP 08/03/16 05:38 08/03/16 05:38 Laboratory Tests 08/03/16 05:20 Sodium 146 H Potassium 4.5 Chloride 107 D Carbon Dioxide 30 Anion Gap 9 BUN 47 H D Creatinine 1.5 H Creat Clearance w eGFR 33.16 Calcium 8.5 Phosphorus 4.4 D Magnesium 2.2 Albumin 2.8 L Current Medications Al Hydroxide/Mg Hydroxide (Mylanta Oral Suspension -) 30 ml PO Q6H PRN Allopurinol (Zyloprim -) 100 mg PO BID [facility] Last Admin: 08/02/16 21:09 Dose: Not Given Atorvastatin Calcium (Lipitor -) 40 mg PO HS [facility] Last Admin: 08/02/16 21:09 Dose: Not Given Chlorhexidine Gluconate (Hibiclens For Decolonization -) 1 applic TP [facility] Last Admin: 08/02/16 21:09 Dose: 1 applic Sodium Chloride (Normal Saline -) 1,000 mls @ 75 mls/hr IV ASDIR [facility] Last Admin: 08/02/16 19:00 Dose: 75 mls/hr Insulin Aspart (Novolog Vial) 0 units SQ ACHS [facility] PRN Reason: Protocol Last Admin: 08/03/16 11:17 Dose: Not Given Metoprolol Succinate (Toprol Xl -) 100 mg PO DAILY [facility] Last Admin: 08/03/16 09:45 Dose: 100 mg Mupirocin (Bactroban Ointment (For Decolonization) -) 1 applic NS BID ROBI Stop: 08/07/16 21:59 Last Admin: 08/02/16 21:10 Dose: 1 applic Pantoprazole Sodium (Protonix -) 40 mg PO BID ROBI Torsemide (Demadex -) 20 mg PO DAILY ROBI A/P 85 year old woman with PMhx of CKD, Hypertension, CAD, NIDDM who presented with Melena and found to have acute on chronic anemia with BUN/Cr of 60/1.8. #Acute on Chronic Renal Insufficiency Renal function stable/improved from last admission Hold Toresemide for today on IVF for hypovolemia from GI bleed if tolerating diet can d/c IVF Trend BUN/Cr avoid NSAIDs, IV Contrast, BERNARDA/ARB #Upper GI bleed s/p EGD continue PPI GI follow up Thank you will follow Moises Kirkland DO
[2016-08-03] MEDS: ALLOPURINOL 100 MG TABLET (FP) PO SCH ×2 (13:38→21:40)
[2016-08-03] MEDS: PANTOPRAZOLE 40 MG TABLET (FP) PO SCH ×2 (13:40→21:40)
[2016-08-03] MEDS: MUPIROCIN 2% TOPICAL OINTMENT FOR DECOLONIZATION NS SCH ×2 (13:40→21:42)
--- NOTE | 2016-08-03 19:43 | CONSULT ---
Consult Consult Specialty:: Pulm/CCM Reason for Consultation:: anemia - Past Medical History Cardio/Vascular: Yes: CAD, CHF, HTN, Other (atrial tachycardia/a flutter) Renal/: Yes: Renal Inusuff. 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 Home Medications - Allergies Allergies/Adverse Reactions: Allergies Allergy/AdvReac Type Severity Reaction Status Date / Time No Known Allergies Allergy Verified 08/02/16 14:14 - Home Medications Home Medications: Ambulatory Orders Allopurinol [Zyloprim -] 300 mg PO AM 09/20/15 Aspirin [Cheo Chewable Aspirin] 81 mg PO DAILY 09/20/15 Atorvastatin Ca [Lipitor] 40 mg PO HS 09/20/15 Glipizide [Glipizide ER] 2.5 mg PO HS 09/20/15 Glipizide [Glipizide ER] 5 mg PO DAILY 09/20/15 Cephalexin Monohydrate [Keflex -] 500 mg PO BID #10 capsule 07/27/16 Metoprolol Succinate [Toprol XL -] 100 mg PO DAILY #90 tab 07/27/16 Rivaroxaban [Xarelto -] 15 mg PO DAILY #90 tablet 07/27/16 Torsemide [Demadex -] 20 mg PO DAILY #90 tablet 07/27/16 Family Disease History - Family Disease History Family Disease History: Other: Father ( 86: "sepsis"), Mother ( 97 "old age") Other Family History: 13 siblings, 4 : 3 from ? diabetic complications, 1 from CKD/heart Dz Physical Exam Vital Signs: Vital Signs Temperature 98.2 F 08/03/16 18:00 Pulse Rate 84 08/03/16 18:00 Respiratory Rate 18 08/03/16 18:00 Blood Pressure 150/72 08/03/16 18:00 O2 Sat by Pulse Oximetry (%) 97 08/03/16 10:28 Labs: CBC, BMP 08/03/16 05:38 08/03/16 05:38 Imaging - Results Chest X-ray: Pending, Report Reviewed Problem List - Problems (1) Gastrointestinal hemorrhage Code(s): K92.2 - GASTROINTESTINAL HEMORRHAGE, UNSPECIFIED (2) Melena Code(s): K92.1 - MELENA (3) Severe anemia Code(s): D64.9 - ANEMIA, UNSPECIFIED (4) Anemia Code(s): D64.9 - ANEMIA, UNSPECIFIED
[2016-08-03] MEDS ORDERED: ACETAMINOPHEN 325 MG TABLET (FP) PO PRN (19:55)
[2016-08-03] MEDS: ATORVASTATIN CA 40 MG TABLET (FP) PO SCH (21:40)
[2016-08-03] MEDS: CHLORHEXIDINE GLUCONATE 4% CLEANSER FOR DECOLONIZATION TP SCH (21:41)
[2016-08-04 06:08] LABS: BASOPHIL 1.2 % (0-2.0); EOSINOPHIL 3.1 % (0-4.5); MCH 29.4 pg (25.7-33.7); MCHC 32.3 g/dl (32.0-36.0); MEAN CELL VOLUME 91.1 fl (80-96); MEAN PLT VOLUME 8.9 fl (7.5-11.1); NEUTROPHILS 61.6 % (42.8-82.8); PLATELET COUNT 307 K/MM3 (134-434); RDW 15.3 % (11.6-15.6); WHITE BLOOD COUNT 7.3 K/mm3 (4.0-10.0)
[2016-08-04] MEDS: INSULIN (NOVOLOG) ASPART 100 UNITS/ML 10ML VIAL SQ SCH (06:33)
[2016-08-04 06:34] LABS: ALBUMIN 2.8 g/dl (3.4-5.0); CALCIUM 8.8 mg/dL (8.5-10.1); MAGNESIUM 2.1 mg/dL (1.8-2.4)
[2016-08-04 06:39] LABS: BILIRUBIN,TOTAL 0.6 mg/dL (0.2-1.0); COCKROFT - GAULT 30.515; CREATININE 1.5 mg/dL (0.55-1.02); PHOSPHOROUS 3.9 mg/dL (2.5-4.9); TOT PROT 5.7 g/dl (6.4-8.2)
[2016-08-04] MEDS ORDERED: MAG HYDROX/AL HYDROX/SIMETH 30 ML UNIT-DOSE CUP PO PRN (07:20)
--- NOTE | 2016-08-04 07:34 | PN ---
Physical Exam: SUBJECTIVE: Patient seen and examined at bed side. peasantry sitting in chair. no abdominal pain, reports feeling like her normal self. + BM yesterday started black then brown- possibly to residual blood. no fevers, chills, N/V/D, CP, SOB, light headedness. HB 8.5 to 8.4; stable OBJECTIVE: Vital Signs Period Temp Pulse Resp BP Sys/De La O Pulse Ox Last 24 Hr 97.6 F-98.4 F 56-84 14-20 126-182/52-78 97-97 GENERAL: The patient is awake, alert, and fully oriented, in no acute distress. sitting up in chair HEAD: Normal with no signs of trauma. EYES: extraocular movements intact, sclera anicteric, conjunctiva clear. ENT: Ears normal, nares patent, oropharynx clear without exudates, moist mucous membranes. NECK: Trachea midline, full range of motion, supple. LUNGS: Breath sounds equal, clear to auscultation bilaterally, no wheezes, no crackles, no accessory muscle use. HEART: Regular rate and rhythm, S1, S2 without murmur, rub or gallop. ABDOMEN: Soft, mild diffused tenderness, nondistended, normoactive bowel sounds , no guarding, no rebound, no hepatosplenomegaly, no masses. EXTREMITIES: 2+ pulses, warm, well-perfused, no edema. NEUROLOGICAL: no facial asymmetry, Normal speech, PSYCH: Normal mood, normal affect. SKIN: Warm, dry, normal turgor, no rashes or lesions noted Laboratory Results - last 24 hr 08/02/16 08/03/16 08/03/16 21:08 05:20 05:20 WBC RBC Hgb Hct MCV MCHC RDW Plt Count MPV Neutrophils % Lymphocytes % Monocytes % Eosinophils % Basophils % INR 1.40 H PTT (Actin FS) 29.5 Sodium 146 H Potassium 4.5 Chloride 107 D Carbon Dioxide 30 Anion Gap 9 BUN 47 H D Creatinine 1.5 H Creat Clearance w eGFR 33.16 POC Glucometer 99.62096 Random Glucose 94 D Calcium 8.5 Phosphorus Magnesium Iron Ferritin 174.524 Total Bilirubin 0.6 D AST 28 D ALT 51 Alkaline Phosphatase 102 Total Protein 5.7 L Albumin 2.8 L 08/03/16 08/03/16 08/03/16 05:38 05:38 06:09 WBC 7.0 RBC 2.82 L D Hgb 8.5 L D Hct 25.6 L D MCV 90.7 MCHC 33.1 RDW 15.2 Plt Count 307 MPV 8.9 Neutrophils % 57.0 Lymphocytes % 30.7 D Monocytes % 8.9 Eosinophils % 2.3 Basophils % 1.1 INR PTT (Actin FS) Sodium Cancelled Potassium Cancelled Chloride Cancelled Carbon Dioxide Cancelled Anion Gap Cancelled BUN Cancelled Creatinine Cancelled Creat Clearance w eGFR Cancelled POC Glucometer 117.18903 Random Glucose Cancelled Calcium Cancelled Phosphorus Magnesium Iron Ferritin Cancelled Total Bilirubin Cancelled AST Cancelled ALT Cancelled Alkaline Phosphatase Cancelled Total Protein Cancelled Albumin Cancelled 08/03/16 08/03/16 08/03/16 10:11 12:30 17:22 WBC RBC Hgb Hct MCV MCHC RDW Plt Count MPV Neutrophils % Lymphocytes % Monocytes % Eosinophils % Basophils % INR PTT (Actin FS) Sodium Potassium Chloride Carbon Dioxide Anion Gap BUN Creatinine Creat Clearance w eGFR POC Glucometer 143.98878 130.32818 Random Glucose Calcium Phosphorus Magnesium Iron 130 Ferritin Total Bilirubin AST ALT Alkaline Phosphatase Total Protein Albumin 08/03/16 08/04/16 08/04/16 21:19 05:15 05:15 WBC 7.3 RBC 2.86 L Hgb 8.4 L Hct 26.1 L MCV 91.1 MCHC 32.3 RDW 15.3 Plt Count 307 MPV 8.9 Neutrophils % 61.6 Lymphocytes % 25.7 Monocytes % 8.4 Eosinophils % 3.1 Basophils % 1.2 INR PTT (Actin FS) Sodium 145 Potassium 4.9 Chloride 107 Carbon Dioxide 29 Anion Gap 9 BUN 28 H D Creatinine 1.5 H Creat Clearance w eGFR 33.16 POC Glucometer 208.49605 Random Glucose 103 Calcium 8.8 Phosphorus 3.9 Magnesium 2.1 Iron Ferritin Total Bilirubin 0.6 AST 31 ALT 44 Alkaline Phosphatase 105 Total Protein 5.7 L Albumin 2.8 L 08/04/16 06:01 WBC RBC Hgb Hct MCV MCHC RDW Plt Count MPV Neutrophils % Lymphocytes % Monocytes % Eosinophils % Basophils % INR PTT (Actin FS) Sodium Potassium Chloride Carbon Dioxide Anion Gap BUN Creatinine Creat Clearance w eGFR POC Glucometer 130.49611 Random Glucose Calcium Phosphorus Magnesium Iron Ferritin Total Bilirubin AST ALT Alkaline Phosphatase Total Protein Albumin Active Medications Generic Name Dose Route Start Last Admin Trade Name Freq PRN Reason Stop Dose Admin Al Hydroxide/Mg Hydroxide 30 ml 08/04/16 07:20 Mylanta Oral Suspension - PO Q6H PRN INDIGESTION Allopurinol 100 mg 08/04/16 10:00 Zyloprim - PO BID [facility] Aspirin 81 mg 08/04/16 10:00 Ecotrin - PO DAILY [facility] Atorvastatin Calcium 40 mg 08/04/16 22:00 Lipitor - PO HS [facility] Chlorhexidine Gluconate 1 applic 08/04/16 22:00 Hibiclens For Decolonization - TP HS [facility] Insulin Aspart 0 units 08/04/16 11:00 Novolog Vial SQ ACHS [facility] Protocol Metoprolol Succinate 100 mg 08/04/16 10:00 Toprol Xl - PO DAILY [facility] Pantoprazole Sodium 40 mg 08/04/16 10:00 Protonix - PO BID [facility] ASSESSMENT/PLAN: A/ 82 y/o woman with hx of CHF, AMI, Afib on single anti-plt therapy and xarelto p/w anemia and maroon stools Gastrointestinal hemorrhage s/p EGD found Multiple shallow gastric antrum ulcers and a single duodenal bulb ulcer were found to be not bleeding any longer. Advised repeat EGD in 3 months. Given her stents can continue aspirin but would avoid other antiplatelet agents per GI. Advance diet NSAIDs continue protonixs Severe anemia blood loss anemia v IgM monoclonal gammopathy s/p 2 units [facility] with good response; currently currently stable Normal transfusion thresholds A flutter: currently SR CAD s/p 2 drug-eluting (Promus) coronary stents in LAD 2009 Non-obstructive 3 VD on 07/2012 coronary angiogram OK with GI and cardio wto start asa stop NOAC Acute on Chronic Renal Insufficiency: stable, improving oral hydration d/c fluids Trend BUN/Cr avoid NSAIDs, IV Contrast, BERNARDA/ARB Diabetes ISS HTN: Metoprolol Succinate d/c fluids Hydronephrosis Hyperlipidemia continue Atorvastatin Calcium Gout continue Allopurinol FEN diebetic diet oral hydration replete electrolyte as needed. Visit type - Emergency Visit Emergency Visit: Yes ED Registration Date: 08/02/16 Care time: The patient presented to the Emergency Department on the above date and was hospitalized for further evaluation of their emergent condition. - New Patient This patient is new to me today: No - Critical Care Critical Care patient: Yes Total Critical Care Time (in minutes): 42 Critical Care Statement: The care of this patient involved high complexity decision making to prevent further life threatening deterioration of the patient 's condition and/or to evalute & treat vital organ system(s) failure or risk of failure.
[2016-08-04] MEDS: ALLOPURINOL 100 MG TABLET (FP) PO SCH (09:57)
[2016-08-04] MEDS ORDERED: ASPIRIN COATED 81 MG TABLET.EC PO SCH (10:00)
[2016-08-04] MEDS ORDERED: METOPROLOL SUCCINATE 100 MG TAB.SR.24H (FP) PO SCH (10:00)
[2016-08-04] MEDS ORDERED: PANTOPRAZOLE 40 MG TABLET (FP) PO SCH (10:00)
[2016-08-04] MEDS ORDERED: ALLOPURINOL 100 MG TABLET (FP) PO SCH (10:00)
--- NOTE | 2016-08-04 10:51 | PN ---
Progress Note (short form) - Note Progress Note: Renal Follow up for JET on CKD Pt seen and examined in the ICU no acute complaints had one BM, some dark stools No abd pain, Chest pain, SOB Vital Signs Temperature 98.0 F 08/04/16 08:00 Pulse Rate 67 08/04/16 10:22 Respiratory Rate 16 08/04/16 10:00 Blood Pressure 135/59 08/04/16 10:00 O2 Sat by Pulse Oximetry (%) 99 08/04/16 10:22 Intake & Output 08/01/16 08/02/16 08/03/16 08/04/16 23:59 23:59 23:59 23:59 Intake Total 700 2500 200 Output Total 700 Balance 0 2500 200 Weight 150 lb Gen: NAD, awake and alert HEENT: NC/AT, MMM, No JVD CVS: RRR, No M/R Lungs: CTA Abd: soft NT/ND Ext: No edema CBC, BMP 08/04/16 05:15 08/04/16 05:15 Laboratory Tests 08/04/16 05:15 Calcium 8.8 Phosphorus 3.9 Magnesium 2.1 Albumin 2.8 L Current Medications Al Hydroxide/Mg Hydroxide (Mylanta Oral Suspension -) 30 ml PO Q6H PRN PRN Reason: INDIGESTION Allopurinol (Zyloprim -) 100 mg PO BID [facility] Last Admin: 08/04/16 09:57 Dose: 100 mg Aspirin (Ecotrin -) 81 mg PO DAILY [facility] Last Admin: 08/04/16 09:56 Dose: 81 mg Atorvastatin Calcium (Lipitor -) 40 mg PO HS [facility] Chlorhexidine Gluconate (Hibiclens For Decolonization -) 1 applic TP HS [facility] Insulin Aspart (Novolog Vial Sliding Scale -) 1 vial SQ ACHS [facility] PRN Reason: Protocol Metoprolol Succinate (Toprol Xl -) 100 mg PO DAILY [facility] Last Admin: 08/04/16 09:56 Dose: 100 mg Pantoprazole Sodium (Protonix -) 40 mg PO BID [facility] Last Admin: 08/04/16 09:56 Dose: 40 mg A/P 85 year old woman with PMhx of CKD, Hypertension, CAD, NIDDM who presented with Melena and found to have acute on chronic anemia with BUN/Cr of 60/1.8. #Acute on Chronic Renal Insufficiency Renal function improving can restart Torsemide 20mg daily now that pt is eating Trend BUN/Cr pt would benefit from BERNARDA/ARB but can be restarted as outpatient #Upper GI bleed s/p EGD Hgb stable Continue PPI Moises Kirkland DO
[2016-08-04] MEDS ORDERED: INSULIN SLIDING SCALE (NOVOLOG) 1 VIAL SQ SCH (11:00)
[2016-08-04] MEDS ORDERED: TORSEMIDE 20 MG TABLET (FP) PO SCH (11:00)
[2016-08-04 13:02] VITALS: TEMP 98.2
--- NOTE | 2016-08-04 13:36 | DS ---
Physical Examination Vital Signs: Vital Signs Temperature 98.2 F 08/04/16 12:00 Pulse Rate 64 08/04/16 12:00 Respiratory Rate 18 08/04/16 12:00 Blood Pressure 181/62 08/04/16 12:00 O2 Sat by Pulse Oximetry (%) 99 08/04/16 10:22 Findings/Remarks: OOB to chair Hg stable 8.4 on soft diet tolerated OK no further GI bleed d/w cardiology and called GI; pt wants to go home today family at bedsdie; I d/w them all instructions and changes in meds t time 45 min Constitutional: Yes: No Distress, Calm Eyes: Yes: Conjunctiva Clear HENT: Yes: Atraumatic Neck: Yes: Supple Cardiovascular: Yes: Regular Rate and Rhythm Respiratory: Yes: CTA Bilaterally Gastrointestinal: Yes: Soft. No: Distention, Tenderness Renal/: No: CVA Tenderness - Left, CVA Tenderness - Right Musculoskeletal: No: Joint Stiffness, Joint Swelling Extremities: No: Cold, Cool Edema: No Peripheral Pulses WNL: Yes Integumentary: No: Rash, Venous Stasis Changes Neurological: Yes: WNL, Alert, Oriented ...Motor Strength: WNL Psychiatric: Yes: WNL, Alert, Oriented. No: Agitated, Suicidal Ideation Labs: CBC, BMP 08/04/16 05:15 08/04/16 05:15 Discharge Summary Reason For Visit: GASTROINTESTINAL HEMORRHAGE; SEVERE ANEMIA Current Active Problems Gastrointestinal hemorrhage (Acute) Melena (Acute) Severe anemia (Acute) Procedures: Principal: admitted with severe anemia and GI bleed, ICU Other Procedures: transfused; xarelto and ASA held. EGD per GI c/w [facility] Hospital Course: PPI iv then po; Hg stable; see DC instructions and meds Condition: Improved - Instructions Diet, Activity, Other Instructions: f/u PCP, GI and cardiology in 1-3 weeks repeat EGD in 3 months colonoscopy outpt per GI check CBC CMP in 1 week RTER if recurrent bleed, or if CP/SOB continue baby ASA daily, no xarelto home O2 for portable NC given script to pt no NSAIDs po until repeat EGD with GI po PPI bid as ordered scripts done d/w pt and family at bedside all the above Referrals: Margareth Woodard [Primary Care Provider] - Kevin Veloz MD [Staff Physician] - Cathy Monroy MD [Staff Physician] - Disposition: HOME - Home Medications Comprehensive Discharge Medication List: Ambulatory Orders Allopurinol [Zyloprim -] 300 mg PO AM 09/20/15 Aspirin [Cheo Chewable Aspirin] 81 mg PO DAILY 09/20/15 Atorvastatin Ca [Lipitor] 40 mg PO HS 09/20/15 Metoprolol Succinate [Toprol XL -] 100 mg PO DAILY #90 tab 07/27/16 Torsemide [Demadex -] 20 mg PO DAILY #90 tablet 07/27/16 Acetaminophen [Tylenol .Regular Strength -] 325 mg PO Q6H PRN #0 tablet Aspirin Coated [Ecotrin -] 81 mg PO DAILY #90 tab 08/04/16 Glipizide [Glipizide ER] 2.5 mg PO HS #90 tab 08/04/16 Glipizide [Glipizide ER] 5 mg PO DAILY #90 tab 08/04/16 Mag Hydrox/Al Hydrox/Simeth [Mylanta Oral Suspension -] 30 ml PO Q6H PRN #0 5ml 08/04/16 Pantoprazole Sodium [Protonix -] 40 mg PO BID #120 tab 08/04/16
--- NOTE | 2016-08-04 13:53 | PATH ---
Surgical Pathology Report Patient Name: JAKE FOLEY [facility]. Rec. #: [id number] /Age/Gender: 1930 (Age: 85) / F Account: [id number] Location: ICU FINISHER DENTURE Taken: 08/03/2016 Received: 08/03/2016 Reported: 08/04/2016 Physicians: Cathy Monroy M.D. Specimen(s) Received BX ANTRAL ULCER Clinical History GI bleed, melena Acute duodenal bulb ulcer, multiple gastric ulcers Final Diagnosis STOMACH, ANTRAL ULCER, BIOPSY: GASTRIC ANTRAL MUCOSA WITH ACTIVE MARKED CHRONIC GASTRITIS WITH FOCAL SURFACE EROSION. IMMUNOSTAIN FOR H. PYLORI IS POSITIVE FOR ORGANISMS (MODERATE NUMBER OF ORGANISMS). Electronically Signed Conor Rudolph M.D. Gross Description Received in formalin, labeled "biopsy antral ulcer" are 4 ayon, irregular portions of soft tissue ranging from 0.3-0.5 cm in greatest dimension. The specimens are submitted in toto in one cassette. /08/03/2016 saudi08/03/2016
[2016-08-04 14:19] VITALS: BP 141/79; PULSE 65
--- NOTE | 2016-08-04 14:30 | PN ---
Teaching Attending Note Name of Resident: Geo Tabares ATTENDING PHYSICIAN STATEMENT I saw and evaluated the patient. I reviewed the resident's note and discussed the case with the resident. I agree with the resident's findings and plan as documented. SUBJECTIVE: Patient seen and examined in the ICU. No bleeding overnight. Denies abdominal pain, nausea or vomiting. No shortness of breath or chest pain. Tolerated PO intake this AM. OBJECTIVE: Intake & Output 08/01/16 08/02/16 08/03/16 08/04/16 23:59 23:59 23:59 23:59 Intake Total 700 2500 200 Output Total 700 Balance 0 2500 200 Weight 150 lb Last Vital Signs Temp Pulse Resp BP Pulse Ox 98.2 F 65 18 141/79 99 08/04/16 12:00 08/04/16 14:00 08/04/16 14:00 08/04/16 14:00 08/04/16 10:22 Active Medications Al Hydroxide/Mg Hydroxide (Mylanta Oral Suspension -) 30 ml PO Q6H PRN PRN Reason: INDIGESTION Allopurinol (Zyloprim -) 100 mg PO BID [facility] Last Admin: 08/04/16 09:57 Dose: 100 mg Aspirin (Ecotrin -) 81 mg PO DAILY [facility] Last Admin: 08/04/16 09:56 Dose: 81 mg Atorvastatin Calcium (Lipitor -) 40 mg PO HS [facility] Chlorhexidine Gluconate (Hibiclens For Decolonization -) 1 applic TP HS [facility] Insulin Aspart (Novolog Vial Sliding Scale -) 1 vial SQ ACHS [facility] PRN Reason: Protocol Last Admin: 08/04/16 11:30 Dose: 8 units Metoprolol Succinate (Toprol Xl -) 100 mg PO DAILY [facility] Last Admin: 08/04/16 09:56 Dose: 100 mg Pantoprazole Sodium (Protonix -) 40 mg PO BID [facility] Last Admin: 08/04/16 09:56 Dose: 40 mg Torsemide (Demadex -) 20 mg PO DAILY [facility] Last Admin: 08/04/16 11:30 Dose: 20 mg Gen: NAD at rest Heart: RRR Lung: decreased breath sounds at the bases Abd: soft, nontender Ext: no edema Laboratory Results - last 24 hr 08/03/16 08/03/16 08/03/16 12:30 17:22 21:19 WBC RBC Hgb Hct MCV MCHC RDW Plt Count MPV Neutrophils % Lymphocytes % Monocytes % Eosinophils % Basophils % Sodium Potassium Chloride Carbon Dioxide Anion Gap BUN Creatinine Creat Clearance w eGFR POC Glucometer 130.00237 208.45571 Random Glucose Calcium Phosphorus Magnesium Iron 130 Total Bilirubin AST ALT Alkaline Phosphatase Total Protein Albumin 08/04/16 08/04/16 08/04/16 05:15 05:15 06:01 WBC 7.3 RBC 2.86 L Hgb 8.4 L Hct 26.1 L MCV 91.1 MCHC 32.3 RDW 15.3 Plt Count 307 MPV 8.9 Neutrophils % 61.6 Lymphocytes % 25.7 Monocytes % 8.4 Eosinophils % 3.1 Basophils % 1.2 Sodium 145 Potassium 4.9 Chloride 107 Carbon Dioxide 29 Anion Gap 9 BUN 28 H D Creatinine 1.5 H Creat Clearance w eGFR 33.16 POC Glucometer 130.94779 Random Glucose 103 Calcium 8.8 Phosphorus 3.9 Magnesium 2.1 Iron Total Bilirubin 0.6 AST 31 ALT 44 Alkaline Phosphatase 105 Total Protein 5.7 L Albumin 2.8 L 08/04/16 10:04 WBC RBC Hgb Hct MCV MCHC RDW Plt Count MPV Neutrophils % Lymphocytes % Monocytes % Eosinophils % Basophils % Sodium Potassium Chloride Carbon Dioxide Anion Gap BUN Creatinine Creat Clearance w eGFR POC Glucometer 316.51709 Random Glucose Calcium Phosphorus Magnesium Iron Total Bilirubin AST ALT Alkaline Phosphatase Total Protein Albumin ASSESSMENT AND PLAN: GI Bleed likely upper Anemia Paroxysmal Atrial Fibrillation CAD on ASA - Normal transfusion thresholds - holding anticoagulation - PO as tolerated Dr Zavala
[2016-08-04] MEDS ORDERED: ATORVASTATIN CA 40 MG TABLET (FP) PO SCH (22:00)
[2016-08-04] MEDS ORDERED: CHLORHEXIDINE GLUCONATE 4% CLEANSER FOR DECOLONIZATION TP SCH (22:00)
--- NOTE | 2016-08-04 23:59 | PN ---
Progress Note, Physician Chief Complaint: Pt OOB in chair; A&Ox3; no chest pain, dizziness, palpitations. Brother is at bedside. History of Present Illness: The patient is an 85-year-old woman (b. [facility]), accompanied by family, with a significant past medical history of hypertension, hypercholesterolemia, myocardial infarction, coronary artery disease status post stent placements 2009 , renal insufficiency, non-insulin dependent diabetes mellitus and diastolic congestive heart failure who presents to the emergency department for further evaluation of rectal bleeding. As per patient, she was just admitted in this hospital from 07/20-07/22 for shortness of breath and tachycardia. During admission she was found to be in atrial fibrillation and was initially placed on a Heparin drip and was subsequently switched to Xarelto. She was noted to have abnormal LFTs. Abdominal ultrasound was performed which showed a normal liver, gallbladder and common bile duct of 3mm. Patient was ultimately discharged and she recalls noting that post discharge, she started to experience diarrhea, reported as loose watery stools. The next day, she noted that her stool was maroon appearing. She had a similar bowel movement two days later. She denies noting any bright red blood/clots. She denies any associated symptoms of abdominal pain, nausea, vomiting, urinary complaints, generalized weakness, fever, chills, visual changes headaches, chest pain,lightheadedness, dizziness, palpitations, cough and shortness of breath. Patient is currently on a baby aspirin and Xarelto. Allergies: Penicillin Past Surgical History: Stent Placements. Partial thyroidectomy. 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 No ETOH and recreational drug use. Primary Care Physician: Dr. Margareth Woodard Baker Apprentice: Dr. Temo Summers Remainder of the review of systems is negative - Objective Vital Signs: Vital Signs Temperature 98.2 F 08/04/16 12:00 Pulse Rate 65 08/04/16 14:00 Respiratory Rate 18 08/04/16 14:00 Blood Pressure 141/79 08/04/16 14:00 O2 Sat by Pulse Oximetry (%) 99 08/04/16 10:22 Constitutional: Yes: Calm Eyes: Yes: WNL HENT: Yes: WNL Neck: Yes: WNL Cardiovascular: Yes: Regular Rate and Rhythm Respiratory: Yes: Regular Gastrointestinal: Yes: Soft ...Rectal Exam: Yes: Deferred Genitourinary: No: Anuria Breast(s): Yes: WNL Musculoskeletal: Yes: Muscle Weakness Extremities: Yes: WNL Edema: No Peripheral Pulses WNL: Yes Integumentary: Yes: WNL Neurological: Yes: Alert, Oriented Psychiatric: Yes: WNL Labs: CBC, BMP 08/04/16 05:15 08/04/16 05:15 INR, PTT INR 1.40 (0.82-1.09) H 08/03/16 05:20 Abnormal Lab Results 08/04/16 08/04/16 05:15 05:15 RBC 2.86 L Hgb 8.4 L Hct 26.1 L BUN 28 H D Creatinine 1.5 H Total Protein 5.7 L Albumin 2.8 L Problem List - Problems (1) Anemia Assessment/Plan: As discussed with Dr. Monroy, pt may continue on aspirin (and PPI); other antiplatelets or anticoagulants may not be used for at least the next six weeks. Code(s): D64.9 - ANEMIA, UNSPECIFIED (2) CAD (coronary artery disease) Code(s): I25.10 - ATHSCL HEART DISEASE OF [place] CORONARY ARTERY W/O ANG PCTRS (3) Chronic diastolic (congestive) heart failure Code(s): I50.32 - CHRONIC DIASTOLIC (CONGESTIVE) HEART FAILURE (4) Diabetes Code(s): E11.9 - TYPE 2 DIABETES MELLITUS WITHOUT COMPLICATIONS (5) Gastrointestinal hemorrhage Code(s): K92.2 - GASTROINTESTINAL HEMORRHAGE, UNSPECIFIED (6) HTN (hypertension) Assessment/Plan: On metoprolol ER and torsamide. Pt to keep BP record at home; she has been on an additional agent in the past ( eg nifedipine). Ideally, an ARB could be used (HTN; CHF; DM), but care with renal dysfunction and ? hx potassium abnormality in the past. Code(s): I10 - ESSENTIAL (PRIMARY) HYPERTENSION (7) Hyperlipidemia Assessment/Plan: f/u lipid profile (on statin). Code(s): E78.5 - HYPERLIPIDEMIA, UNSPECIFIED (8) Paroxysmal atrial fibrillation Assessment/Plan: On metoprolol ER for HR and BP control. Unable to restart anticoagulant for now; on ASA (see under "anemia" for details) . Code(s): I48.0 - PAROXYSMAL ATRIAL FIBRILLATION
--- NOTE | 2016-08-05 10:38 | PN ---
Progress Note (short form) - Note Progress Note: H pylori came + after DC from H; I called pt and spoke with her and also I spoke with GI dr Monroy who advised to have pt go to his office for further treatment, d/w pt.
== END 2016-08-04 15:47 | disposition home or self-care (01) | DRG 813 ==
LOC: JER 14:08 → JERBED 16:00 → JICU 18:40
PROVIDERS: ADMIT Internal Medicine; ATTEND Internal Medicine
PROC: 30233N1 Transfusion of Nonautologous Red Blood Cells into Peripheral Vein, Percutaneous Approach (ICD-10-PCS; 2016-08-02)
PROC: 0DB68ZX Excision of Stomach, Via Natural or Artificial Opening Endoscopic, Diagnostic (ICD-10-PCS; 2016-08-03)
PROC: 0DB98ZX Excision of Duodenum, Via Natural or Artificial Opening Endoscopic, Diagnostic (ICD-10-PCS; principal; 2016-08-03 12:00)
DX: D68.32 Hemorrhagic disorder due to extrinsic circulating anticoagulants (principal); I48.92 Unspecified atrial flutter; N13.30 Unspecified hydronephrosis; I13.0 Hypertensive heart and chronic kidney disease with heart failure and stage 1 through stage 4 chronic kidney disease, or unspecified chronic kidney disease; N17.9 Acute kidney failure, unspecified; I25.10 Atherosclerotic heart disease of native coronary artery without angina pectoris; I25.2 Old myocardial infarction; E78.00 Pure hypercholesterolemia, unspecified; M54.5 Low back pain; M19.90 Unspecified osteoarthritis, unspecified site; K26.9 Duodenal ulcer, unspecified as acute or chronic, without hemorrhage or perforation; K25.9 Gastric ulcer, unspecified as acute or chronic, without hemorrhage or perforation; D50.0 Iron deficiency anemia secondary to blood loss (chronic); M10.9 Gout, unspecified; D47.2 Monoclonal gammopathy; I48.0 Paroxysmal atrial fibrillation; I44.0 Atrioventricular block, first degree; E11.22 Type 2 diabetes mellitus with diabetic chronic kidney disease; N18.9 Chronic kidney disease, unspecified; E66.3 Overweight; Z95.5 Presence of coronary angioplasty implant and graft; Z96.653 Presence of artificial knee joint, bilateral; Z88.0 Allergy status to penicillin; Z68.28 Body mass index [BMI] 28.0-28.9, adult; Z71.3 Dietary counseling and surveillance
CPT/HCPCS: 36415; 36430; 71010-TC; 80048; 80053; 80061; 82272; 82550; 82728; 83540; 83605; 83721; 83735; 83880; 84100; 84484; 85025; 85027; 85610; 85730; 86850; 86900; 86901; 86922; 88305-TC; 93005; 93010; 99282-25; P9038; P9058

== ENCOUNTER 2020-08-12 16:40 | Inpatient (IN) | payer BC, OTHER ==
[2020-08-12] MEDS ORDERED: LACTATED RINGERS SOLUTION 1000 ML INFUS.BAG IV ONE ×2 (17:03→19:15)
[2020-08-12 18:27] LABS: BASO % 0.1 % (0-2.0); EOS % 0.5 % (0-4.5); HEMATOCRIT 26.9 % (32.4-45.2); HEMOGLOBIN 9.3 GM/dL (10.7-15.3); LYMPH % 5.4 % (8-40); MCH 32.2 pg (25.7-33.7); MCHC 34.5 g/dl (32.0-36.0); MEAN CELL VOLUME 93.2 fl (80-96); MEAN PLT VOLUME 8.6 fl (7.5-11.1); MONO % 4.4 % (3.8-10.2); NEUT % 89.6 % (42.8-82.8); PLATELET COUNT 310 K/MM3 (134-434); RBC 2.89 M/mm3 (3.60-5.2); RDW 13.6 % (11.6-15.6); WHITE BLOOD COUNT 9.6 K/mm3 (4.0-10.0)
[2020-08-12 18:31] LABS: VENOUS O2 SATURATION 78.3 % (70-80); VENOUS PCO2 40.9 mmHg (38-52); VENOUS PH 7.385 (7.310-7.410)
[2020-08-12 18:32] LABS: INR 3.27 (0.83-1.09); PROTHROMBIN TIME (PATIENT) 38.2 SEC (9.7-13.0)
[2020-08-12 18:47] LABS: CHLORIDE 79 mmol/L (98-107)
[2020-08-12 18:50] LABS: ALBUMIN 3.7 g/dl (3.4-5.0); BLOOD UREA NITROGEN 42.6 mg/dL (7-18); CALCIUM 8.7 mg/dL (8.5-10.1); CO2 26 mmol/L (21-32); GLUCOSE,RANDOM 107 mg/dL (74-106); MAGNESIUM 1.8 mg/dL (1.8-2.4)
[2020-08-12 18:53] LABS: CREATININE 1.5 mg/dL (0.55-1.3); SGOT/AST 67 U/L (15-37); SGPT/ALT 53 U/L (13-61)
[2020-08-12 18:55] LABS: BILIRUBIN,TOTAL 0.5 mg/dL (0.2-1); TOT PROT 7.2 g/dl (6.4-8.2)
[2020-08-12 18:56] LABS: ALK PHOS 169 U/L (45-117)
[2020-08-12 19:10] LABS: ANION GAP 11 MMOL/L (8-16); SODIUM 116 mmol/L (136-145)
[2020-08-12 19:40] LABS: OSMOLALITY,SERUM 251 mosm/kg (278-305)
[2020-08-12 21:27] LABS: CHLORIDE 80 mmol/L (98-107)
[2020-08-12 21:28] LABS: CALCIUM 8.1 mg/dL (8.5-10.1)
[2020-08-12 21:29] LABS: CO2 26 mmol/L (21-32); GLUCOSE,RANDOM 82 mg/dL (74-106)
[2020-08-12 21:32] LABS: EPI CELLS 10 /uL (0-25.1); HYALINE CASTS 1 /uL (0-3.1); URINE APPEARANCE CLEAR; URINE BACTERIA 211 /uL (0-1359); URINE BILIRUBIN NEGATIVE (NEGATIVE); URINE COLOR YELLOW; URINE GLUCOSE (UA) NEGATIVE (NEGATIVE); URINE KETONE NEGATIVE (NEGATIVE); URINE LEUK ESTERASE TRACE (NEGATIVE); URINE NITRITE NEGATIVE (NEGATIVE); URINE PROTEIN 3+ (NEGATIVE); URINE RBC 30 /uL (0-23.9); URINE UROBILINOGEN 0.2 mg/dL (0.2-1.0); URINE WBC 12 /uL (0-25.8)
[2020-08-12 21:32] LABS: CREATININE 1.5 mg/dL (0.55-1.3)
[2020-08-12 21:35] LABS: ANION GAP 9 MMOL/L (8-16); SODIUM 115 mmol/L (136-145)
[2020-08-12] MEDS ORDERED: SODIUM CHLORIDE 3% 500 ML/500 ML INFUS.BAG IV ONE (21:56)
[2020-08-12] MEDS ORDERED: SODIUM CHLORIDE 3% IV ONE (22:15)
[2020-08-12] MEDS ORDERED: INFUS IV ONE (22:15)
[2020-08-12 23:24] VITALS: BMI 26.6
[2020-08-13 08:26] LABS: BLOOD UREA NITROGEN 36.6 mg/dL (7-18); CALCIUM 8.5 mg/dL (8.5-10.1)
[2020-08-13 08:30] LABS: CREATININE 1.5 mg/dL (0.55-1.3)
[2020-08-13] MEDS: amLODIPine BESYLATE 10 MG TABLET (FP) PO SCH (09:20)
[2020-08-13] MEDS: ALLOPURINOL 100 MG TABLET (FP) PO SCH (09:20)
[2020-08-13] MEDS: BISACODYL 5 MG TABLET.DR (FP) PO PRN (09:25)
[2020-08-13 11:28] LABS: N-TERMINAL BNP 7360.9 pg/ml (5-450)
[2020-08-13 12:16] LABS: URIC ACID 6.8 mg/dL (2.6-7.2)
[2020-08-13 17:50] LABS: BLOOD UREA NITROGEN 36.2 mg/dL (7-18); CALCIUM 8.5 mg/dL (8.5-10.1)
[2020-08-13 17:54] LABS: CREATININE 1.6 mg/dL (0.55-1.3)
[2020-08-13] MEDS: WARFARIN NA 5 MG TABLET PO SCH (17:56)
[2020-08-13] MEDS: ATORVASTATIN CA 40 MG TABLET (FP) PO SCH (21:04)
[2020-08-14] MEDS: ALLOPURINOL 100 MG TABLET (FP) PO SCH (06:25)
[2020-08-14 08:07] LABS: BASO % 1.3 % (0-2.0); EOS % 8.7 % (0-4.5); HEMATOCRIT 23.3 % (32.4-45.2); HEMOGLOBIN 8.2 GM/dL (10.7-15.3); LYMPH % 15.2 % (8-40); MCH 32.9 pg (25.7-33.7); MCHC 35.2 g/dl (32.0-36.0); MEAN CELL VOLUME 93.3 fl (80-96); MEAN PLT VOLUME 8.8 fl (7.5-11.1); MONO % 7.9 % (3.8-10.2); NEUT % 66.9 % (42.8-82.8); PLATELET COUNT 278 K/MM3 (134-434); RBC 2.49 M/mm3 (3.60-5.2); RDW 13.3 % (11.6-15.6); WHITE BLOOD COUNT 7.7 K/mm3 (4.0-10.0)
[2020-08-14 08:13] LABS: INR 1.99 (0.83-1.09); PROTHROMBIN TIME (PATIENT) 23.6 SEC (9.7-13.0)
[2020-08-14 08:31] LABS: CALCIUM 8.5 mg/dL (8.5-10.1)
[2020-08-14 08:32] LABS: BLOOD UREA NITROGEN 41.3 mg/dL (7-18)
[2020-08-14 08:34] LABS: CREATININE 1.7 mg/dL (0.55-1.3)
[2020-08-14 08:36] LABS: BILIRUBIN,TOTAL 0.5 mg/dL (0.2-1); TOT PROT 5.7 g/dl (6.4-8.2)
[2020-08-14 08:40] LABS: ALBUMIN 2.9 g/dl (3.4-5.0)
[2020-08-14] MEDS ORDERED: SODIUM CHLORIDE 1,000 ML IV SCH (09:30)
[2020-08-14] MEDS: amLODIPine BESYLATE 10 MG TABLET (FP) PO SCH (10:06)
[2020-08-14] MEDS: BISACODYL 5 MG TABLET.DR (FP) PO PRN (14:49)
[2020-08-14] MEDS: NYSTATIN 500,000 UNITS/5 ML SUSPENSION PO SCH (18:09)
[2020-08-14] MEDS: WARFARIN NA 5 MG TABLET PO SCH (18:09)
[2020-08-14 18:16] LABS: CALCIUM 8.1 mg/dL (8.5-10.1)
[2020-08-14 18:20] LABS: CREATININE 1.7 mg/dL (0.55-1.3)
[2020-08-14] MEDS: ATORVASTATIN CA 40 MG TABLET (FP) PO SCH (21:34)
[2020-08-15] MEDS: NYSTATIN 500,000 UNITS/5 ML SUSPENSION PO SCH ×4 (06:29→17:31)
[2020-08-15] MEDS: ALLOPURINOL 100 MG TABLET (FP) PO SCH (06:29)
[2020-08-15 08:04] LABS: BASO % 1.1 % (0-2.0); EOS % 9.6 % (0-4.5); HEMATOCRIT 24.2 % (32.4-45.2); HEMOGLOBIN 8.5 GM/dL (10.7-15.3); MCH 32.9 pg (25.7-33.7); MCHC 34.9 g/dl (32.0-36.0); MEAN CELL VOLUME 94.1 fl (80-96); MEAN PLT VOLUME 8.7 fl (7.5-11.1); MONO % 8.4 % (3.8-10.2); NEUT % 65.9 % (42.8-82.8); PLATELET COUNT 274 K/MM3 (134-434); RBC 2.57 M/mm3 (3.60-5.2); RDW 13.1 % (11.6-15.6); WHITE BLOOD COUNT 8.7 K/mm3 (4.0-10.0)
[2020-08-15 08:10] LABS: INR 1.81 (0.83-1.09); PROTHROMBIN TIME (PATIENT) 21.9 SEC (9.7-13.0)
[2020-08-15 08:26] LABS: CALCIUM 8.5 mg/dL (8.5-10.1)
[2020-08-15 08:27] LABS: ALBUMIN 2.9 g/dl (3.4-5.0); BLOOD UREA NITROGEN 44.4 mg/dL (7-18)
[2020-08-15 08:30] LABS: CREATININE 1.7 mg/dL (0.55-1.3)
[2020-08-15 08:31] LABS: BILIRUBIN,TOTAL 0.5 mg/dL (0.2-1); TOT PROT 6.2 g/dl (6.4-8.2)
[2020-08-15] MEDS: amLODIPine BESYLATE 10 MG TABLET (FP) PO SCH (09:56)
[2020-08-15] MEDS: BISACODYL 5 MG TABLET.DR (FP) PO PRN (09:58)
[2020-08-15] MEDS ORDERED: FUROSEMIDE 40 MG/4 ML INJECTABLE VIAL IVPUSH ONE (11:45)
[2020-08-15] MEDS: WARFARIN NA 5 MG TABLET PO SCH (17:31)
[2020-08-15] MEDS: ATORVASTATIN CA 40 MG TABLET (FP) PO SCH (21:25)
[2020-08-16] MEDS: NYSTATIN 500,000 UNITS/5 ML SUSPENSION PO SCH ×4 (00:05→18:02)
[2020-08-16] MEDS: ALLOPURINOL 100 MG TABLET (FP) PO SCH (06:15)
[2020-08-16] MEDS: amLODIPine BESYLATE 10 MG TABLET (FP) PO SCH (10:06)
[2020-08-16 14:39] LABS: INR 2.76 (0.83-1.09); PROTHROMBIN TIME (PATIENT) 32.4 SEC (9.7-13.0)
[2020-08-16 14:53] LABS: CALCIUM 8.7 mg/dL (8.5-10.1)
[2020-08-16 14:54] LABS: BLOOD UREA NITROGEN 46.9 mg/dL (7-18)
[2020-08-16 14:57] LABS: CREATININE 2.1 mg/dL (0.55-1.3)
[2020-08-16] MEDS: WARFARIN NA 5 MG TABLET PO SCH (18:02)
[2020-08-16 18:04] VITALS: BP 152/56; PULSE 68; TEMP 98.5
== END 2020-08-16 19:00 | disposition home health service (06) | DRG 638 ==
LOC: JER 16:40 → JERBED 19:07 → J4W 22:32
PROVIDERS: ADMIT Internal Medicine; ATTEND Internal Medicine
DX: E11.649 Type 2 diabetes mellitus with hypoglycemia without coma (principal); I13.0 Hypertensive heart and chronic kidney disease with heart failure and stage 1 through stage 4 chronic kidney disease, or unspecified chronic kidney disease; I50.30 Unspecified diastolic (congestive) heart failure; E87.1 Hypo-osmolality and hyponatremia; I25.10 Atherosclerotic heart disease of native coronary artery without angina pectoris; E03.9 Hypothyroidism, unspecified; I48.91 Unspecified atrial fibrillation; Z95.820 Peripheral vascular angioplasty status with implants and grafts; E11.22 Type 2 diabetes mellitus with diabetic chronic kidney disease; N18.4 Chronic kidney disease, stage 4 (severe); M10.9 Gout, unspecified; M54.5 Low back pain; Z96.653 Presence of artificial knee joint, bilateral; I44.0 Atrioventricular block, first degree; I45.10 Unspecified right bundle-branch block; E86.0 Dehydration; D47.2 Monoclonal gammopathy
CPT/HCPCS: 36415; 71045-TC-FY; 80048; 80053; 80061; 81003; 82550; 82553; 82570; 82803; 82962; 83036; 83721; 83735; 83880; 83930; 83935; 84300; 84439; 84443; 84484; 84550; 85025; 85610; 87086; 93005; 93010; 93306-TC; 99285-25; C9803; U0003; U0005

== ENCOUNTER 2021-01-30 12:54 | Inpatient (IN) | payer BC, OTHER ==
[2021-01-30 13:10] VITALS: BMI 27.6
[2021-01-30 15:44] LABS: BASO % 0.4 % (0-2.0); HEMATOCRIT 24.8 % (32.4-45.2); HEMOGLOBIN 8.5 GM/dL (10.7-15.3); LYMPH % 8.1 % (8-40); MCH 30.3 pg (25.7-33.7); MCHC 34.1 g/dl (32.0-36.0); MEAN CELL VOLUME 88.7 fl (80-96); MEAN PLT VOLUME 8.5 fl (7.5-11.1); MONO % 5.4 % (3.8-10.2); NEUT % 86.1 % (42.8-82.8); PLATELET COUNT 342 10^3/uL (134-434); RBC 2.79 M/mm3 (3.60-5.2); RDW 16.2 % (11.6-15.6); WHITE BLOOD COUNT 8.1 K/mm3 (4.0-10.0)
[2021-01-30 15:55] LABS: PROTHROMBIN TIME (PATIENT) 50.6 SEC (9.7-13.0)
[2021-01-30 15:58] LABS: ACTIVATED PTT 44.4 SECONDS (25.2-36.5)
[2021-01-30 16:05] LABS: CHLORIDE 85 mmol/L (98-107)
[2021-01-30 16:07] LABS: CALCIUM 8.7 mg/dL (8.5-10.1)
[2021-01-30 16:08] LABS: ALBUMIN 3.4 g/dl (3.4-5.0); BLOOD UREA NITROGEN 52.4 mg/dL (7-18); CO2 26 mmol/L (21-32); GLUCOSE,RANDOM 135 mg/dL (74-106)
[2021-01-30 16:11] LABS: CREATININE 1.9 mg/dL (0.55-1.3); SGOT/AST 59 U/L (15-37); SGPT/ALT 53 U/L (13-61)
[2021-01-30 16:13] LABS: BILIRUBIN,TOTAL 0.5 mg/dL (0.2-1); TOT PROT 7.3 g/dl (6.4-8.2)
[2021-01-30 16:14] LABS: ALK PHOS 173 U/L (45-117)
[2021-01-30 16:16] LABS: N-TERMINAL BNP 6454.7 pg/ml (5-450)
[2021-01-30] MEDS ORDERED: FUROSEMIDE 40 MG/4 ML INJECTABLE VIAL IVPUSH ONE (16:28)
[2021-01-30] MEDS ORDERED: FUROSEMIDE 40 MG/4 ML INJECTABLE VIAL ONE (16:31)
[2021-01-30 16:59] LABS: INR 4.45 (0.83-1.09)
[2021-01-30 17:08] LABS: ANION GAP 8 MMOL/L (8-16); SODIUM 119 mmol/L (136-145)
[2021-01-30 18:09] LABS: CALCIUM 8.7 mg/dL (8.5-10.1)
[2021-01-30 18:10] LABS: BLOOD UREA NITROGEN 52.6 mg/dL (7-18); MAGNESIUM 2.1 mg/dL (1.8-2.4)
[2021-01-30 18:12] LABS: URIC ACID 6.3 mg/dL (2.6-7.2)
[2021-01-30 18:13] LABS: CREATININE 1.8 mg/dL (0.55-1.3); PHOSPHOROUS 3.7 mg/dL (2.5-4.9)
[2021-01-30 18:39] LABS: EPI CELLS 2 /uL (0-25.1); HYALINE CASTS 1 /uL (0-3.1); URINE APPEARANCE CLOUDY; URINE BACTERIA 468 /uL (0-1359); URINE BILIRUBIN NEGATIVE (NEGATIVE); URINE COLOR YELLOW; URINE GLUCOSE (UA) NEGATIVE (NEGATIVE); URINE KETONE NEGATIVE (NEGATIVE); URINE LEUK ESTERASE 2+ (NEGATIVE); URINE NITRITE NEGATIVE (NEGATIVE); URINE PROTEIN 3+ (NEGATIVE); URINE RBC 10 /uL (0-23.9); URINE UROBILINOGEN 0.2 mg/dL (0.2-1.0); URINE WBC 439 /uL (0-25.8)
[2021-01-30] MEDS ORDERED: CEFTRIAXONE 1 GM in DEXTROSE 5%-WATER - 50 ML IVPB ONE (20:01)
[2021-01-30] MEDS ORDERED: CEFTRIAXONE 1 GM/50 ML BAG ONE (20:33)
[2021-01-31] MEDS: INSULIN SLIDING SCALE (NOVOLOG) 1 VIAL SQ SCH ×4 (06:09→22:13)
[2021-01-31] MEDS: LEVOTHYROXINE NA 25 MCG TABLET (FP) PO SCH (06:11)
[2021-01-31 07:30] LABS: CALCIUM 8.6 mg/dL (8.5-10.1)
[2021-01-31 07:31] LABS: BLOOD UREA NITROGEN 52.4 mg/dL (7-18)
[2021-01-31 07:34] LABS: CREATININE 1.9 mg/dL (0.55-1.3)
[2021-01-31 07:35] LABS: BILIRUBIN,TOTAL 0.6 mg/dL (0.2-1); TOT PROT 6.8 g/dl (6.4-8.2)
[2021-01-31 07:42] LABS: BASO % 0.6 % (0-2.0); EOS % 2.2 % (0-4.5); HEMATOCRIT 22.7 % (32.4-45.2); HEMOGLOBIN 7.9 GM/dL (10.7-15.3); LYMPH % 13.9 % (8-40); MCHC 34.8 g/dl (32.0-36.0); MEAN PLT VOLUME 8.6 fl (7.5-11.1); MONO % 8.9 % (3.8-10.2); NEUT % 74.4 % (42.8-82.8); PLATELET COUNT 275 10^3/uL (134-434); RBC 2.55 M/mm3 (3.60-5.2); RDW 16.9 % (11.6-15.6)
[2021-01-31] MEDS ORDERED: DEXTROSE 5%-WATER - 50 ML IVPB ONE (09:12)
[2021-01-31] MEDS ORDERED: cefTRIAXone SODIUM 1 GM VIAL ONE (09:12)
[2021-01-31] MEDS: FUROSEMIDE 40 MG/4 ML INJECTABLE VIAL IVPUSH SCH (09:50)
[2021-01-31] MEDS: CEFTRIAXONE 1 GM in DEXTROSE 5%-WATER - 50 ML IVPB SCH (09:50)
[2021-01-31] MEDS: amLODIPine BESYLATE 5 MG TABLET (FP) PO SCH (09:50)
[2021-01-31 11:04] LABS: PROTHROMBIN TIME (PATIENT) 47.9 SEC (9.7-13.0)
[2021-01-31 12:02] LABS: INR 4.04 (0.83-1.09)
[2021-01-31 17:05] LABS: BLOOD UREA NITROGEN 56.6 mg/dL (7-18); CALCIUM 8.3 mg/dL (8.5-10.1); CREATININE 2.1 mg/dL (0.55-1.3)
[2021-01-31] MEDS: ATORVASTATIN CA 40 MG TABLET (FP) PO SCH (22:13)
[2021-02-01] MEDS: LEVOTHYROXINE NA 25 MCG TABLET (FP) PO SCH (06:38)
[2021-02-01] MEDS: INSULIN SLIDING SCALE (NOVOLOG) 1 VIAL SQ SCH ×4 (06:38→21:29)
[2021-02-01 08:07] LABS: HEMATOCRIT 22.8 % (32.4-45.2); HEMOGLOBIN 7.7 GM/dL (10.7-15.3); MCH 30.5 pg (25.7-33.7); MCHC 33.7 g/dl (32.0-36.0); MEAN CELL VOLUME 90.5 fl (80-96); MEAN PLT VOLUME 8.4 fl (7.5-11.1); PLATELET COUNT 262 10^3/uL (134-434); RBC 2.52 M/mm3 (3.60-5.2); RDW 17.1 % (11.6-15.6); WHITE BLOOD COUNT 7.1 K/mm3 (4.0-10.0)
[2021-02-01 08:19] LABS: INR 2.45 (0.83-1.09); PROTHROMBIN TIME (PATIENT) 27.7 SEC (9.7-13.0)
[2021-02-01 08:21] LABS: ACTIVATED PTT 37.2 SECONDS (25.2-36.5)
[2021-02-01 08:29] LABS: CALCIUM 8.5 mg/dL (8.5-10.1)
[2021-02-01] MEDS ORDERED: cefTRIAXone SODIUM 1 GM VIAL ONE (09:39)
[2021-02-01] MEDS ORDERED: DEXTROSE 5%-WATER - 50 ML IVPB ONE (09:39)
[2021-02-01] MEDS: CEFTRIAXONE 1 GM in DEXTROSE 5%-WATER - 50 ML IVPB SCH (09:43)
[2021-02-01] MEDS: amLODIPine BESYLATE 5 MG TABLET (FP) PO SCH (09:43)
[2021-02-01] MEDS: FUROSEMIDE 40 MG/4 ML INJECTABLE VIAL IVPUSH SCH (09:43)
[2021-02-01] MEDS: WARFARIN NA 2.5 MG TABLET PO SCH (17:29)
[2021-02-01] MEDS: ATORVASTATIN CA 40 MG TABLET (FP) PO SCH (21:27)
[2021-02-01] MEDS ORDERED: WARFARIN NA 5 MG TABLET PO SCH (22:00)
[2021-02-02] MEDS: LEVOTHYROXINE NA 25 MCG TABLET (FP) PO SCH (06:36)
[2021-02-02] MEDS: INSULIN SLIDING SCALE (NOVOLOG) 1 VIAL SQ SCH ×4 (06:37→21:53)
[2021-02-02 07:47] LABS: EOS % 4.7 % (0-4.5); HEMATOCRIT 21.7 % (32.4-45.2); HEMOGLOBIN 7.4 GM/dL (10.7-15.3); LYMPH % 12.2 % (8-40); MCH 30.8 pg (25.7-33.7); MCHC 34.1 g/dl (32.0-36.0); MEAN CELL VOLUME 90.5 fl (80-96); MEAN PLT VOLUME 8.5 fl (7.5-11.1); MONO % 10.3 % (3.8-10.2); NEUT % 71.8 % (42.8-82.8); PLATELET COUNT 250 10^3/uL (134-434); RDW 16.6 % (11.6-15.6); WHITE BLOOD COUNT 7.5 K/mm3 (4.0-10.0)
[2021-02-02 07:55] LABS: ALBUMIN 2.4 g/dl (3.4-5.0)
[2021-02-02 07:57] LABS: BILIRUBIN,TOTAL 0.5 mg/dL (0.2-1); BLOOD UREA NITROGEN 65.4 mg/dL (7-18)
[2021-02-02 07:58] LABS: CALCIUM 8.8 mg/dL (8.5-10.1); TOT PROT 5.9 g/dl (6.4-8.2)
[2021-02-02 07:59] LABS: CREATININE 2.1 mg/dL (0.55-1.3)
[2021-02-02] MEDS ORDERED: IRON SUCROSE INJECTION 100 MG in SODIUM CHLORIDE 95 ML IVPB ONE (10:14)
[2021-02-02] MEDS ORDERED: cefTRIAXone SODIUM 1 GM VIAL ONE (10:25)
[2021-02-02] MEDS ORDERED: DEXTROSE 5%-WATER - 50 ML IVPB ONE (10:25)
[2021-02-02] MEDS: CEFTRIAXONE 1 GM in DEXTROSE 5%-WATER - 50 ML IVPB SCH (10:27)
[2021-02-02] MEDS: FUROSEMIDE 40 MG/4 ML INJECTABLE VIAL IVPUSH SCH (10:27)
[2021-02-02] MEDS: amLODIPine BESYLATE 5 MG TABLET (FP) PO SCH (10:27)
[2021-02-02] MEDS ORDERED: EPOETIN ALFA-EPBX 20,000 UNIT/ML VIAL SQ ONE (13:00)
[2021-02-02] MEDS ORDERED: FUROSEMIDE 40 MG/4 ML INJECTABLE VIAL IVPUSH ONE (14:00)
[2021-02-02 20:03] LABS: INR 1.37 (0.83-1.09); PROTHROMBIN TIME (PATIENT) 16.1 SEC (9.7-13.0)
[2021-02-02] MEDS: WARFARIN NA 2.5 MG TABLET PO SCH (21:51)
[2021-02-02] MEDS: ATORVASTATIN CA 40 MG TABLET (FP) PO SCH (21:51)
[2021-02-03] MEDS: INSULIN SLIDING SCALE (NOVOLOG) 1 VIAL SQ SCH ×4 (06:29→22:02)
[2021-02-03] MEDS: LEVOTHYROXINE NA 25 MCG TABLET (FP) PO SCH (06:29)
[2021-02-03 07:08] LABS: EOS % 6.1 % (0-4.5); HEMATOCRIT 24.9 % (32.4-45.2); HEMOGLOBIN 8.5 GM/dL (10.7-15.3); LYMPH % 10.2 % (8-40); MCH 30.8 pg (25.7-33.7); MCHC 34.1 g/dl (32.0-36.0); MEAN CELL VOLUME 90.3 fl (80-96); MEAN PLT VOLUME 7.9 fl (7.5-11.1); MONO % 8.7 % (3.8-10.2); PLATELET COUNT 252 10^3/uL (134-434); RBC 2.76 M/mm3 (3.60-5.2)
[2021-02-03 07:16] LABS: INR 1.33 (0.83-1.09); PROTHROMBIN TIME (PATIENT) 15.6 SEC (9.7-13.0)
[2021-02-03 07:19] LABS: CALCIUM 8.7 mg/dL (8.5-10.1)
[2021-02-03 07:20] LABS: ALBUMIN 2.8 g/dl (3.4-5.0); BLOOD UREA NITROGEN 72.3 mg/dL (7-18); CREATININE 2.2 mg/dL (0.55-1.3)
[2021-02-03 07:21] LABS: BILIRUBIN,TOTAL 0.5 mg/dL (0.2-1)
[2021-02-03 07:22] LABS: TOT PROT 6.2 g/dl (6.4-8.2)
[2021-02-03] MEDS ORDERED: DEXTROSE 5%-WATER - 50 ML IVPB ONE (10:41)
[2021-02-03] MEDS ORDERED: cefTRIAXone SODIUM 1 GM VIAL ONE (10:41)
[2021-02-03] MEDS: amLODIPine BESYLATE 5 MG TABLET (FP) PO SCH (10:47)
[2021-02-03] MEDS: CEFTRIAXONE 1 GM in DEXTROSE 5%-WATER - 50 ML IVPB SCH (10:47)
[2021-02-03] MEDS: FUROSEMIDE 40 MG/4 ML INJECTABLE VIAL IVPUSH SCH (10:47)
[2021-02-03] MEDS ORDERED: FUROSEMIDE 40 MG/4 ML INJECTABLE VIAL IVPUSH ONE (14:00)
[2021-02-03] MEDS: WARFARIN NA 5 MG TABLET PO SCH (17:12)
[2021-02-03] MEDS: ATORVASTATIN CA 40 MG TABLET (FP) PO SCH (22:02)
[2021-02-04] MEDS: INSULIN SLIDING SCALE (NOVOLOG) 1 VIAL SQ SCH ×4 (06:38→22:11)
[2021-02-04] MEDS: LEVOTHYROXINE NA 25 MCG TABLET (FP) PO SCH (06:38)
[2021-02-04 06:59] LABS: CALCIUM 8.3 mg/dL (8.5-10.1)
[2021-02-04 07:00] LABS: BLOOD UREA NITROGEN 72.6 mg/dL (7-18)
[2021-02-04 07:03] LABS: CREATININE 2.2 mg/dL (0.55-1.3)
[2021-02-04] MEDS ORDERED: DEXTROSE 5%-WATER - 50 ML IVPB ONE (08:51)
[2021-02-04] MEDS ORDERED: cefTRIAXone SODIUM 1 GM VIAL ONE (08:51)
[2021-02-04] MEDS: amLODIPine BESYLATE 10 MG TABLET (FP) PO SCH (09:26)
[2021-02-04] MEDS: FUROSEMIDE 40 MG/4 ML INJECTABLE VIAL IVPUSH SCH (09:26)
[2021-02-04] MEDS: CEFTRIAXONE 1 GM in DEXTROSE 5%-WATER - 50 ML IVPB SCH (09:26)
[2021-02-04] MEDS: WARFARIN NA 5 MG TABLET PO SCH (17:18)
[2021-02-04] MEDS: ATORVASTATIN CA 40 MG TABLET (FP) PO SCH (22:11)
[2021-02-05] MEDS: INSULIN SLIDING SCALE (NOVOLOG) 1 VIAL SQ SCH ×2 (07:05→11:34)
[2021-02-05] MEDS: LEVOTHYROXINE NA 25 MCG TABLET (FP) PO SCH (07:05)
[2021-02-05 07:43] LABS: BASO % 1.1 % (0-2.0); EOS % 7.8 % (0-4.5); HEMATOCRIT 25.3 % (32.4-45.2); HEMOGLOBIN 8.6 GM/dL (10.7-15.3); LYMPH % 16.3 % (8-40); MCH 31.1 pg (25.7-33.7); MEAN CELL VOLUME 91.5 fl (80-96); MEAN PLT VOLUME 8.4 fl (7.5-11.1); MONO % 9.8 % (3.8-10.2); PLATELET COUNT 275 10^3/uL (134-434); RBC 2.77 M/mm3 (3.60-5.2); RDW 16.3 % (11.6-15.6); WHITE BLOOD COUNT 7.1 K/mm3 (4.0-10.0)
[2021-02-05 07:56] LABS: ALBUMIN 2.7 g/dl (3.4-5.0); BLOOD UREA NITROGEN 78.5 mg/dL (7-18); CALCIUM 8.8 mg/dL (8.5-10.1)
[2021-02-05 08:00] LABS: CREATININE 2.4 mg/dL (0.55-1.3)
[2021-02-05 08:01] LABS: BILIRUBIN,TOTAL 0.4 mg/dL (0.2-1)
[2021-02-05] MEDS ORDERED: cefTRIAXone SODIUM 1 GM VIAL ONE (09:52)
[2021-02-05] MEDS ORDERED: DEXTROSE 5%-WATER - 50 ML IVPB ONE (09:52)
[2021-02-05] MEDS: amLODIPine BESYLATE 10 MG TABLET (FP) PO SCH (09:55)
[2021-02-05] MEDS: CEFTRIAXONE 1 GM in DEXTROSE 5%-WATER - 50 ML IVPB SCH (09:55)
[2021-02-05] MEDS ORDERED: TORSEMIDE 20 MG TABLET (FP) PO SCH (10:00)
[2021-02-05 10:01] VITALS: TEMP 97.8
[2021-02-05 15:13] VITALS: BP 152/64; PULSE 55
== END 2021-02-05 15:50 | disposition home health service (06) | DRG 291 ==
LOC: JER 12:54 → JERBED 14:56 → J4S 22:36
PROVIDERS: ADMIT Internal Medicine; ATTEND Internal Medicine
PROC: 30233N1 Transfusion of Nonautologous Red Blood Cells into Peripheral Vein, Percutaneous Approach (ICD-10-PCS; principal; 2021-02-02)
DX: I13.0 Hypertensive heart and chronic kidney disease with heart failure and stage 1 through stage 4 chronic kidney disease, or unspecified chronic kidney disease (principal); I50.33 Acute on chronic diastolic (congestive) heart failure; E87.1 Hypo-osmolality and hyponatremia; N18.4 Chronic kidney disease, stage 4 (severe); N39.0 Urinary tract infection, site not specified; E11.9 Type 2 diabetes mellitus without complications; I48.0 Paroxysmal atrial fibrillation; E03.9 Hypothyroidism, unspecified; I48.91 Unspecified atrial fibrillation; D63.1 Anemia in chronic kidney disease; Z98.61 Coronary angioplasty status; I25.119 Atherosclerotic heart disease of native coronary artery with unspecified angina pectoris
CPT/HCPCS: 36415; 36430; 71045-TC-FY; 71250-TC; 80048; 80053; 81003; 82272; 82533; 82550; 82553; 82570; 82728; 82962; 83540; 83550; 83735; 83880; 83930; 83935; 84100; 84300; 84443; 84484; 84540; 84550; 84560; 85025; 85027; 85610; 85730; 86850; 86900; 86901; 86922; 93005; 93010; 93970-TC; 94761; 97116-GP; 97161-GP; 99285-25; C9803; J1756; P9058; U0003; U0005

== ENCOUNTER 2022-02-24 14:17 | Inpatient (IN) | payer BC ==
[2022-02-24 16:35] LABS: BASO % 0.4 % (0-2.0); EOS % 0.8 % (0-4.5); HEMATOCRIT 24.4 % (32.4-45.2); HEMOGLOBIN 8.6 GM/dL (10.7-15.3); MCH 31.5 pg (25.7-33.7); MCHC 35.3 g/dl (32.0-36.0); MEAN CELL VOLUME 89.4 fl (80-96); MEAN PLT VOLUME 7.5 fl (7.5-11.1); MONO % 7.7 % (3.8-10.2); NEUT % 80.1 % (42.8-82.8); PLATELET COUNT 321 10^3/uL (134-434); RBC 2.73 M/mm3 (3.60-5.2); RDW 13.6 % (11.6-15.6); WHITE BLOOD COUNT 7.8 K/mm3 (4.0-10.0)
[2022-02-24 16:36] LABS: VENOUS BASE EXCESS 7.3 mmol/L (-2-2); VENOUS O2 SATURATION 50.3 % (70-80); VENOUS PCO2 47.8 mmHg (38-52); VENOUS PH 7.448 (7.310-7.410)
[2022-02-24 16:44] LABS: INR 3.85 (0.83-1.09); PROTHROMBIN TIME (PATIENT) 44.9 SEC (9.7-13.0)
[2022-02-24 16:47] LABS: ACTIVATED PTT 45.8 SECONDS (25.2-36.5)
[2022-02-24 16:56] LABS: CHLORIDE 71 mmol/L (98-107)
[2022-02-24 16:58] LABS: CALCIUM 9.2 mg/dL (8.5-10.1)
[2022-02-24 16:59] LABS: ALBUMIN 3.3 g/dl (3.4-5.0); CO2 30 mmol/L (21-32); GLUCOSE,RANDOM 113 mg/dL (74-106)
[2022-02-24 17:02] LABS: PHOSPHOROUS 5.6 mg/dL (2.5-4.9); SGOT/AST 63 U/L (15-37); SGPT/ALT 36 U/L (13-61)
[2022-02-24 17:04] LABS: BILIRUBIN,TOTAL 0.3 mg/dL (0.2-1); TOT PROT 6.8 g/dl (6.4-8.2)
[2022-02-24 17:05] LABS: ALK PHOS 94 U/L (45-117)
[2022-02-24 17:37] LABS: ANION GAP 16 MMOL/L (8-16); BLOOD UREA NITROGEN 116.6 mg/dL (7-18); SODIUM 117 mmol/L (136-145)
[2022-02-24] MEDS ORDERED: SODIUM CHLORIDE 0.9% 500 ML INFUS.BAG IV ONE (17:44)
[2022-02-24] MEDS ORDERED: KCL 10 MEQ IVPB 30 MEQ/300 ML INFUS.BAG IVPB ONE (18:02)
[2022-02-24] MEDS: KCL 10 MEQ IVPB 10 MEQ/100 ML INFUS.BAG IVPB SCH ×3 (18:09→20:25)
[2022-02-24 18:13] LABS: EPI CELLS 1 /uL (0-25.1); HYALINE CASTS 0 /uL (0-3.1); PH,URINE 5.5 (5.0-8.0); URINE APPEARANCE CLOUDY; URINE BACTERIA 5276 /uL (0-1359); URINE BILIRUBIN NEGATIVE (NEGATIVE); URINE COLOR YELLOW; URINE GLUCOSE (UA) NEGATIVE (NEGATIVE); URINE KETONE NEGATIVE (NEGATIVE); URINE LEUK ESTERASE 3+ (NEGATIVE); URINE NITRITE NEGATIVE (NEGATIVE); URINE PROTEIN 2+ (NEGATIVE); URINE RBC 19 /uL (0-23.9); URINE UROBILINOGEN 0.2 mg/dL (0.2-1.0); URINE WBC 1070 /uL (0-25.8)
[2022-02-24] MEDS ORDERED: CEFTRIAXONE 1,000 MG in DEXTROSE 5%-WATER - 50 ML IVPB ONE (18:57)
[2022-02-24 19:55] LABS: CHLORIDE 74 mmol/L (98-107)
[2022-02-24 19:57] LABS: CALCIUM 8.9 mg/dL (8.5-10.1); CO2 29 mmol/L (21-32)
[2022-02-24 19:58] LABS: GLUCOSE,RANDOM 98 mg/dL (74-106)
[2022-02-24 20:01] LABS: CREATININE 2.9 mg/dL (0.55-1.3)
[2022-02-24 20:02] LABS: ANION GAP 16 MMOL/L (8-16); BLOOD UREA NITROGEN 109.7 mg/dL (7-18); SODIUM 118 mmol/L (136-145)
[2022-02-24] MEDS ORDERED: SODIUM CHLORIDE 3% 500 ML/500 ML INFUS.BAG IV ONE (20:10)
[2022-02-24] MEDS ORDERED: ONDANSETRON 4 MG/2 ML VIAL IVPUSH PRN (20:32)
[2022-02-24] MEDS ORDERED: POTASSIUM CHLORIDE ORAL LIQUID 20 MEQ/15 ML PO ONE (20:42)
[2022-02-24] MEDS ORDERED: HEPARIN NA (PORCINE) 5,000 UNITS/ML 1ML VIAL SQ SCH (22:00)
[2022-02-24] MEDS ORDERED: ATORVASTATIN CA 40 MG TABLET (FP) PO SCH (22:00)
[2022-02-24] MEDS ORDERED: ATORVASTATIN CA 40 MG TABLET (FP) ONE (22:11)
[2022-02-24] MEDS: INSULIN SLIDING SCALE (NOVOLOG) 1 VIAL SQ SCH (22:13)
[2022-02-24] MEDS: MUPIROCIN 2% TOPICAL OINTMENT FOR DECOLONIZATION NS SCH (22:48)
[2022-02-24] MEDS: CHLORHEXIDINE GLUCONATE 4% CLEANSER FOR DECOLONIZATION TP SCH (22:48)
[2022-02-25 03:43] LABS: CHLORIDE 80 mmol/L (98-107); SODIUM 124 mmol/L (136-145)
[2022-02-25 03:44] LABS: ANION GAP 14 MMOL/L (8-16); CALCIUM 8.9 mg/dL (8.5-10.1); CO2 30 mmol/L (21-32); GLUCOSE,RANDOM 75 mg/dL (74-106)
[2022-02-25 03:48] LABS: CREATININE 2.6 mg/dL (0.55-1.3)
[2022-02-25 03:50] LABS: BLOOD UREA NITROGEN 105.3 mg/dL (7-18)
[2022-02-25] MEDS ORDERED: POTASSIUM CHLORIDE TABS 20 MEQ TABLET.ER (FP) PO ONE ×2 (05:37→17:05)
[2022-02-25 07:46] LABS: BASO % 0.2 % (0-2.0); HEMATOCRIT 22.7 % (32.4-45.2); HEMOGLOBIN 7.8 GM/dL (10.7-15.3); LYMPH % 8.2 % (8-40); MCH 31.1 pg (25.7-33.7); MCHC 34.4 g/dl (32.0-36.0); MEAN CELL VOLUME 90.2 fl (80-96); MEAN PLT VOLUME 7.5 fl (7.5-11.1); MONO % 9.4 % (3.8-10.2); NEUT % 81.2 % (42.8-82.8); PLATELET COUNT 306 10^3/uL (134-434); RBC 2.52 M/mm3 (3.60-5.2); RDW 13.7 % (11.6-15.6); WHITE BLOOD COUNT 7.2 K/mm3 (4.0-10.0)
[2022-02-25 08:05] LABS: MAGNESIUM 1.8 mg/dL (1.8-2.4)
[2022-02-25 08:08] LABS: PHOSPHOROUS 4.1 mg/dL (2.5-4.9)
[2022-02-25] MEDS ORDERED: CEFTRIAXONE 1,000 MG in DEXTROSE 5%-WATER - 50 ML IVPB SCH (10:00)
[2022-02-25] MEDS: PANTOPRAZOLE 40 MG TABLET PO SCH (11:42)
[2022-02-25] MEDS: ALLOPURINOL 100 MG TABLET (FP) PO SCH (11:42)
[2022-02-25] MEDS: INSULIN SLIDING SCALE (NOVOLOG) 1 VIAL SQ SCH ×3 (11:42→22:05)
[2022-02-25] MEDS: CEFTRIAXONE 1 GM in DEXTROSE 5%-WATER - 50 ML IVPB SCH (11:42)
[2022-02-25] MEDS: amLODIPine BESYLATE 10 MG TABLET (FP) PO SCH (11:42)
[2022-02-25] MEDS: LEVOTHYROXINE NA 25 MCG TABLET (FP) PO SCH (11:42)
[2022-02-25] MEDS: MUPIROCIN 2% TOPICAL OINTMENT FOR DECOLONIZATION NS SCH ×2 (11:42→21:31)
[2022-02-25 12:21] LABS: INR 3.23 (0.83-1.09); PROTHROMBIN TIME (PATIENT) 37.6 SEC (9.7-13.0)
[2022-02-25 13:06] LABS: BLOOD UREA NITROGEN 98.9 mg/dL (7-18); CALCIUM 9.2 mg/dL (8.5-10.1)
[2022-02-25 13:08] LABS: CREATININE 2.6 mg/dL (0.55-1.3)
[2022-02-25 13:10] LABS: TOT PROT 6.1 g/dl (6.4-8.2)
[2022-02-25] MEDS: DEXAMETHASONE SOD PHOSPHATE 4 MG/1 ML VIAL IVPUSH SCH (14:00)
[2022-02-25] MEDS ORDERED: KCL 10 MEQ IVPB 10 MEQ/100 ML INFUS.BAG IVPB SCH (17:15)
[2022-02-25] MEDS ORDERED: MAGNESIUM 1GM/D5W - 1 GM/100 ML IVPB IVPB ONE (17:24)
[2022-02-25 18:10] LABS: BLOOD UREA NITROGEN 95.7 mg/dL (7-18)
[2022-02-25 18:13] LABS: CREATININE 2.5 mg/dL (0.55-1.3)
[2022-02-25] MEDS: CHLORHEXIDINE GLUCONATE 4% CLEANSER FOR DECOLONIZATION TP SCH (21:32)
[2022-02-26] MEDS: LEVOTHYROXINE NA 25 MCG TABLET (FP) PO SCH (06:31)
[2022-02-26] MEDS: INSULIN SLIDING SCALE (NOVOLOG) 1 VIAL SQ SCH ×5 (06:39→22:00)
[2022-02-26 07:29] LABS: BASO % 0.1 % (0-2.0); HEMATOCRIT 24.7 % (32.4-45.2); HEMOGLOBIN 8.5 GM/dL (10.7-15.3); LYMPH % 8.7 % (8-40); MCH 31.7 pg (25.7-33.7); MCHC 34.5 g/dl (32.0-36.0); MEAN CELL VOLUME 91.8 fl (80-96); MEAN PLT VOLUME 7.2 fl (7.5-11.1); MONO % 2.8 % (3.8-10.2); NEUT % 88.4 % (42.8-82.8); PLATELET COUNT 312 10^3/uL (134-434); RBC 2.69 M/mm3 (3.60-5.2); RDW 14.1 % (11.6-15.6); WHITE BLOOD COUNT 5.3 K/mm3 (4.0-10.0)
[2022-02-26 07:33] LABS: INR 2.23 (0.83-1.09); PROTHROMBIN TIME (PATIENT) 25.8 SEC (9.7-13.0)
[2022-02-26 07:55] LABS: BILIRUBIN,TOTAL 0.4 mg/dL (0.2-1); BLOOD UREA NITROGEN 99.5 mg/dL (7-18); CALCIUM 9.4 mg/dL (8.5-10.1); CREATININE 2.6 mg/dL (0.55-1.3); MAGNESIUM 2.3 mg/dL (1.8-2.4); PHOSPHOROUS 3.8 mg/dL (2.5-4.9); TOT PROT 6.8 g/dl (6.4-8.2)
[2022-02-26] MEDS: CEFTRIAXONE 1 GM in DEXTROSE 5%-WATER - 50 ML IVPB SCH (10:24)
[2022-02-26] MEDS: MUPIROCIN 2% TOPICAL OINTMENT FOR DECOLONIZATION NS SCH (10:24)
[2022-02-26] MEDS: DEXAMETHASONE SOD PHOSPHATE 4 MG/1 ML VIAL IVPUSH SCH (10:24)
[2022-02-26] MEDS: PANTOPRAZOLE 40 MG TABLET PO SCH (10:24)
[2022-02-26] MEDS: amLODIPine BESYLATE 10 MG TABLET (FP) PO SCH (10:24)
[2022-02-26] MEDS: ALLOPURINOL 100 MG TABLET (FP) PO SCH (10:24)
[2022-02-26] MEDS ORDERED: BISACODYL 5 MG TABLET.DR (FP) PO ONE (12:15)
[2022-02-26] MEDS ORDERED: ONDANSETRON 4 MG/2 ML VIAL IVPUSH PRN (12:59)
[2022-02-26] MEDS: WARFARIN NA 2 MG TABLET PO SCH (18:05)
[2022-02-26] MEDS: DOCUSATE SODIUM 100 MG CAPSULE (FP) PO SCH (22:09)
[2022-02-27] MEDS: INSULIN SLIDING SCALE (NOVOLOG) 1 VIAL SQ SCH ×4 (06:31→21:21)
[2022-02-27] MEDS: LEVOTHYROXINE NA 25 MCG TABLET (FP) PO SCH (06:31)
[2022-02-27 09:17] LABS: BASO % 0.1 % (0-2.0); HEMOGLOBIN 8.3 GM/dL (10.7-15.3); LYMPH % 7.1 % (8-40); MCH 31.7 pg (25.7-33.7); MCHC 34.6 g/dl (32.0-36.0); MEAN CELL VOLUME 91.8 fl (80-96); MEAN PLT VOLUME 6.9 fl (7.5-11.1); MONO % 5.4 % (3.8-10.2); NEUT % 87.4 % (42.8-82.8); PLATELET COUNT 325 10^3/uL (134-434); RBC 2.61 M/mm3 (3.60-5.2); RDW 13.9 % (11.6-15.6); WHITE BLOOD COUNT 7.4 K/mm3 (4.0-10.0)
[2022-02-27 09:22] LABS: INR 1.94 (0.83-1.09); PROTHROMBIN TIME (PATIENT) 22.5 SEC (9.7-13.0)
[2022-02-27 09:58] LABS: ALBUMIN 2.9 g/dl (3.4-5.0); BILIRUBIN,TOTAL 0.4 mg/dL (0.2-1); BLOOD UREA NITROGEN 101.6 mg/dL (7-18); CALCIUM 9.5 mg/dL (8.5-10.1); CREATININE 2.7 mg/dL (0.55-1.3); MAGNESIUM 1.9 mg/dL (1.8-2.4); PHOSPHOROUS 2.9 mg/dL (2.5-4.9); TOT PROT 6.3 g/dl (6.4-8.2)
[2022-02-27] MEDS: amLODIPine BESYLATE 10 MG TABLET (FP) PO SCH (10:45)
[2022-02-27] MEDS: PANTOPRAZOLE 40 MG TABLET PO SCH (10:45)
[2022-02-27] MEDS: ALLOPURINOL 100 MG TABLET (FP) PO SCH (10:45)
[2022-02-27] MEDS: CEFTRIAXONE 1 GM in DEXTROSE 5%-WATER - 50 ML IVPB SCH (10:45)
[2022-02-27] MEDS: DEXAMETHASONE SOD PHOSPHATE 4 MG/1 ML VIAL IVPUSH SCH (10:45)
[2022-02-27] MEDS: WARFARIN NA 2 MG TABLET PO SCH (18:46)
[2022-02-27] MEDS: DOCUSATE SODIUM 100 MG CAPSULE (FP) PO SCH (21:20)
[2022-02-28] MEDS: LEVOTHYROXINE NA 25 MCG TABLET (FP) PO SCH (06:13)
[2022-02-28] MEDS: INSULIN SLIDING SCALE (NOVOLOG) 1 VIAL SQ SCH ×4 (06:15→21:09)
[2022-02-28] MEDS: CEFTRIAXONE 1 GM in DEXTROSE 5%-WATER - 50 ML IVPB SCH (10:26)
[2022-02-28] MEDS: DEXAMETHASONE SOD PHOSPHATE 4 MG/1 ML VIAL IVPUSH SCH (10:26)
[2022-02-28] MEDS: amLODIPine BESYLATE 10 MG TABLET (FP) PO SCH (10:27)
[2022-02-28] MEDS: ALLOPURINOL 100 MG TABLET (FP) PO SCH (10:27)
[2022-02-28] MEDS: PANTOPRAZOLE 40 MG TABLET PO SCH (10:27)
[2022-02-28] MEDS ORDERED: INSULIN (NOVOLOG) ASPART 100 UNITS/ML 10ML VIAL ONE ×2 (10:45→21:00)
[2022-02-28 11:01] LABS: BASO % 0.1 % (0-2.0); EOS % 0.1 % (0-4.5); HEMOGLOBIN 7.9 GM/dL (10.7-15.3); LYMPH % 7.3 % (8-40); MCH 30.3 pg (25.7-33.7); MCHC 32.7 g/dl (32.0-36.0); MEAN CELL VOLUME 92.5 fl (80-96); MEAN PLT VOLUME 7.5 fl (7.5-11.1); MONO % 5.7 % (3.8-10.2); NEUT % 86.8 % (42.8-82.8); PLATELET COUNT 329 10^3/uL (134-434); RDW 14.4 % (11.6-15.6); WHITE BLOOD COUNT 12.4 K/mm3 (4.0-10.0)
[2022-02-28 11:21] LABS: INR 1.91 (0.83-1.09); PROTHROMBIN TIME (PATIENT) 22.1 SEC (9.7-13.0)
[2022-02-28 11:22] LABS: CHLORIDE 90 mmol/L (98-107); SODIUM 132 mmol/L (136-145)
[2022-02-28 11:35] LABS: ANION GAP 9 MMOL/L (8-16); BLOOD UREA NITROGEN 100.4 mg/dL (7-18); CO2 33 mmol/L (21-32); GLUCOSE,RANDOM 161 mg/dL (74-106)
[2022-02-28 11:37] LABS: CREATININE 2.5 mg/dL (0.55-1.3)
[2022-02-28 11:39] LABS: SGPT/ALT 27 U/L (13-61)
[2022-02-28 11:41] LABS: ALK PHOS 76 U/L (45-117); BILIRUBIN,TOTAL 0.3 mg/dL (0.2-1); CALCIUM 9.5 mg/dL (8.5-10.1); SGOT/AST 28 U/L (15-37); TOT PROT 6.3 g/dl (6.4-8.2)
[2022-02-28 14:03] LABS: IRON SERUM 64 ug/dL (50-175)
[2022-02-28 14:04] LABS: TOTAL IRON BINDING CAPACITY 215 ug/dL (250-450)
[2022-02-28] MEDS: WARFARIN NA 2 MG TABLET PO SCH (17:26)
[2022-02-28] MEDS: POLYETHYLENE GLYCOL (HEALTHYLAX) 3350 17 GM PACKET PO SCH (21:09)
[2022-02-28 22:59] VITALS: BMI 26.3
[2022-03-01] MEDS: LEVOTHYROXINE NA 25 MCG TABLET (FP) PO SCH (06:05)
[2022-03-01] MEDS: POLYETHYLENE GLYCOL (HEALTHYLAX) 3350 17 GM PACKET PO SCH ×3 (06:05→21:54)
[2022-03-01] MEDS: INSULIN SLIDING SCALE (NOVOLOG) 1 VIAL SQ SCH ×4 (06:05→22:43)
[2022-03-01] MEDS: DEXAMETHASONE SOD PHOSPHATE 4 MG/1 ML VIAL IVPUSH SCH (10:00)
[2022-03-01] MEDS: CEPHALEXIN MONOHYDRATE 500 MG CAPSULE (UD) PO SCH (10:01)
[2022-03-01] MEDS: ALLOPURINOL 100 MG TABLET (FP) PO SCH (10:01)
[2022-03-01] MEDS: PANTOPRAZOLE 40 MG TABLET PO SCH (10:01)
[2022-03-01] MEDS: amLODIPine BESYLATE 10 MG TABLET (FP) PO SCH (10:01)
[2022-03-01 13:10] LABS: CALCIUM 9.4 mg/dL (8.5-10.1)
[2022-03-01 13:11] LABS: ALBUMIN 2.9 g/dl (3.4-5.0); BLOOD UREA NITROGEN 100.6 mg/dL (7-18)
[2022-03-01 13:15] LABS: CREATININE 2.3 mg/dL (0.55-1.3)
[2022-03-01 13:16] LABS: BILIRUBIN,TOTAL 0.4 mg/dL (0.2-1); TOT PROT 6.2 g/dl (6.4-8.2)
[2022-03-01] MEDS: TORSEMIDE 20 MG TABLET (FP) PO SCH (14:04)
[2022-03-01] MEDS: WARFARIN NA 2 MG TABLET PO SCH (18:22)
[2022-03-01] MEDS ORDERED: INSULIN (NOVOLOG) ASPART 100 UNITS/ML 10ML VIAL ONE (22:40)
[2022-03-02] MEDS: LEVOTHYROXINE NA 25 MCG TABLET (FP) PO SCH (06:23)
[2022-03-02] MEDS: POLYETHYLENE GLYCOL (HEALTHYLAX) 3350 17 GM PACKET PO SCH ×3 (06:23→21:33)
[2022-03-02] MEDS: INSULIN SLIDING SCALE (NOVOLOG) 1 VIAL SQ SCH ×4 (06:31→21:33)
[2022-03-02] MEDS: DEXAMETHASONE SOD PHOSPHATE 4 MG/1 ML VIAL IVPUSH SCH (09:40)
[2022-03-02] MEDS: CEPHALEXIN MONOHYDRATE 500 MG CAPSULE (UD) PO SCH (09:41)
[2022-03-02] MEDS: TORSEMIDE 20 MG TABLET (FP) PO SCH (09:41)
[2022-03-02] MEDS: ALLOPURINOL 100 MG TABLET (FP) PO SCH (09:41)
[2022-03-02] MEDS: PANTOPRAZOLE 40 MG TABLET PO SCH (09:42)
[2022-03-02] MEDS: amLODIPine BESYLATE 10 MG TABLET (FP) PO SCH (09:42)
[2022-03-02 11:10] LABS: BASO % 0.2 % (0-2.0); EOS % 0.3 % (0-4.5); HEMATOCRIT 27.2 % (32.4-45.2); HEMOGLOBIN 9.1 GM/dL (10.7-15.3); LYMPH % 11.7 % (8-40); MCH 30.9 pg (25.7-33.7); MCHC 33.3 g/dl (32.0-36.0); MEAN CELL VOLUME 92.7 fl (80-96); MEAN PLT VOLUME 7.5 fl (7.5-11.1); MONO % 8.5 % (3.8-10.2); NEUT % 79.3 % (42.8-82.8); PLATELET COUNT 357 10^3/uL (134-434); RBC 2.93 M/mm3 (3.60-5.2); RDW 14.2 % (11.6-15.6); WHITE BLOOD COUNT 8.7 K/mm3 (4.0-10.0)
[2022-03-02 11:15] LABS: INR 2.26 (0.83-1.09); PROTHROMBIN TIME (PATIENT) 26.2 SEC (9.7-13.0)
[2022-03-02 11:38] LABS: CHLORIDE 95 mmol/L (98-107); SODIUM 137 mmol/L (136-145)
[2022-03-02 11:45] LABS: CALCIUM 9.8 mg/dL (8.5-10.1)
[2022-03-02 11:46] LABS: ANION GAP 9 MMOL/L (8-16); CO2 33 mmol/L (21-32); CREATININE 2.3 mg/dL (0.55-1.3); GLUCOSE,RANDOM 219 mg/dL (74-106); SGPT/ALT 33 U/L (13-61)
[2022-03-02 11:48] LABS: BILIRUBIN,TOTAL 0.3 mg/dL (0.2-1); TOT PROT 6.4 g/dl (6.4-8.2)
[2022-03-02 11:49] LABS: ALK PHOS 83 U/L (45-117); SGOT/AST 36 U/L (15-37)
[2022-03-02 11:50] LABS: BLOOD UREA NITROGEN 106.5 mg/dL (7-18)
[2022-03-02] MEDS ORDERED: TORSEMIDE 20 MG TABLET (FP) PO SCH (12:13)
[2022-03-02 17:06] LABS: FREE KAPPA,SERUM 122.5 mg/L (3.3-19.4)
[2022-03-02] MEDS: WARFARIN NA 2 MG TABLET PO SCH (17:26)
[2022-03-02] MEDS ORDERED: INSULIN (NOVOLOG) ASPART 100 UNITS/ML 10ML VIAL ONE (21:12)
[2022-03-03] MEDS: POLYETHYLENE GLYCOL (HEALTHYLAX) 3350 17 GM PACKET PO SCH ×2 (06:05→13:50)
[2022-03-03] MEDS: LEVOTHYROXINE NA 25 MCG TABLET (FP) PO SCH (06:05)
[2022-03-03] MEDS: INSULIN SLIDING SCALE (NOVOLOG) 1 VIAL SQ SCH ×4 (06:11→21:53)
[2022-03-03 09:26] LABS: CHLORIDE 97 mmol/L (98-107); SODIUM 140 mmol/L (136-145)
[2022-03-03 09:34] LABS: ALBUMIN 3.2 g/dl (3.4-5.0); ANION GAP 8 MMOL/L (8-16); CALCIUM 10.3 mg/dL (8.5-10.1); CO2 35 mmol/L (21-32); CREATININE 2.4 mg/dL (0.55-1.3); GLUCOSE,RANDOM 131 mg/dL (74-106); SGPT/ALT 36 U/L (13-61)
[2022-03-03 09:35] LABS: BILIRUBIN,TOTAL 0.3 mg/dL (0.2-1); TOT PROT 6.9 g/dl (6.4-8.2)
[2022-03-03 09:37] LABS: ALK PHOS 85 U/L (45-117); SGOT/AST 25 U/L (15-37)
[2022-03-03 09:38] LABS: BLOOD UREA NITROGEN 105.5 mg/dL (7-18)
[2022-03-03] MEDS: ALLOPURINOL 100 MG TABLET (FP) PO SCH (10:27)
[2022-03-03] MEDS: CEPHALEXIN MONOHYDRATE 500 MG CAPSULE (UD) PO SCH (10:27)
[2022-03-03] MEDS: PANTOPRAZOLE 40 MG TABLET PO SCH (10:27)
[2022-03-03] MEDS: DEXAMETHASONE SOD PHOSPHATE 4 MG/1 ML VIAL IVPUSH SCH (10:27)
[2022-03-03] MEDS: amLODIPine BESYLATE 10 MG TABLET (FP) PO SCH (10:27)
[2022-03-03] MEDS: WARFARIN NA 2 MG TABLET PO SCH (17:36)
[2022-03-04] MEDS: LEVOTHYROXINE NA 25 MCG TABLET (FP) PO SCH (06:23)
[2022-03-04] MEDS: INSULIN SLIDING SCALE (NOVOLOG) 1 VIAL SQ SCH ×4 (06:28→21:30)
[2022-03-04] MEDS: CEPHALEXIN MONOHYDRATE 500 MG CAPSULE (UD) PO SCH (10:25)
[2022-03-04] MEDS: DEXAMETHASONE SOD PHOSPHATE 4 MG/1 ML VIAL IVPUSH SCH (10:27)
[2022-03-04] MEDS: ALLOPURINOL 100 MG TABLET (FP) PO SCH (10:27)
[2022-03-04] MEDS: amLODIPine BESYLATE 10 MG TABLET (FP) PO SCH (10:27)
[2022-03-04] MEDS: PANTOPRAZOLE 40 MG TABLET PO SCH (10:27)
[2022-03-04] MEDS: DEXAMETHASONE 4 MG TABLET (FP) PO SCH (14:19)
[2022-03-04 19:43] LABS: INR 2.72 (0.83-1.09); PROTHROMBIN TIME (PATIENT) 31.6 SEC (9.7-13.0)
[2022-03-04] MEDS: POLYETHYLENE GLYCOL (HEALTHYLAX) 3350 17 GM PACKET PO SCH (22:11)
[2022-03-04] MEDS: WARFARIN NA 2 MG TABLET PO SCH (22:31)
[2022-03-05] MEDS: LEVOTHYROXINE NA 25 MCG TABLET (FP) PO SCH (06:26)
[2022-03-05] MEDS: INSULIN SLIDING SCALE (NOVOLOG) 1 VIAL SQ SCH ×4 (06:30→21:33)
[2022-03-05] MEDS: POLYETHYLENE GLYCOL (HEALTHYLAX) 3350 17 GM PACKET PO SCH ×2 (09:27→21:30)
[2022-03-05] MEDS: ALLOPURINOL 100 MG TABLET (FP) PO SCH (09:28)
[2022-03-05] MEDS: DEXAMETHASONE 4 MG TABLET (FP) PO SCH (09:28)
[2022-03-05] MEDS: CEPHALEXIN MONOHYDRATE 500 MG CAPSULE (UD) PO SCH (09:28)
[2022-03-05] MEDS: TORSEMIDE 20 MG TABLET (FP) PO SCH (09:28)
[2022-03-05] MEDS: PANTOPRAZOLE 40 MG TABLET PO SCH (09:28)
[2022-03-05 09:50] LABS: INR 2.72 (0.83-1.09); PROTHROMBIN TIME (PATIENT) 31.6 SEC (9.7-13.0)
[2022-03-05] MEDS: amLODIPine BESYLATE 10 MG TABLET (FP) PO SCH (11:57)
[2022-03-05] MEDS: WARFARIN NA 2 MG TABLET PO SCH (17:51)
[2022-03-05] MEDS ORDERED: INSULIN (NOVOLOG) ASPART 100 UNITS/ML 10ML VIAL ONE ×2 (18:42→21:32)
[2022-03-06] MEDS: INSULIN SLIDING SCALE (NOVOLOG) 1 VIAL SQ SCH ×4 (06:37→21:28)
[2022-03-06] MEDS: LEVOTHYROXINE NA 25 MCG TABLET (FP) PO SCH (06:39)
[2022-03-06] MEDS: ALLOPURINOL 100 MG TABLET (FP) PO SCH (10:09)
[2022-03-06] MEDS: amLODIPine BESYLATE 10 MG TABLET (FP) PO SCH (10:09)
[2022-03-06] MEDS: DEXAMETHASONE 4 MG TABLET (FP) PO SCH (10:09)
[2022-03-06] MEDS: CEPHALEXIN MONOHYDRATE 500 MG CAPSULE (UD) PO SCH (10:10)
[2022-03-06] MEDS: PANTOPRAZOLE 40 MG TABLET PO SCH (10:10)
[2022-03-06] MEDS: POLYETHYLENE GLYCOL (HEALTHYLAX) 3350 17 GM PACKET PO SCH ×2 (10:11→21:28)
[2022-03-06 14:26] VITALS: RESP 18
[2022-03-06] MEDS: WARFARIN NA 2 MG TABLET PO SCH (18:26)
[2022-03-07] MEDS: INSULIN SLIDING SCALE (NOVOLOG) 1 VIAL SQ SCH ×3 (06:50→17:05)
[2022-03-07] MEDS: LEVOTHYROXINE NA 25 MCG TABLET (FP) PO SCH (06:51)
[2022-03-07] MEDS: CEPHALEXIN MONOHYDRATE 500 MG CAPSULE (UD) PO SCH (10:32)
[2022-03-07] MEDS: TORSEMIDE 20 MG TABLET (FP) PO SCH (10:32)
[2022-03-07] MEDS: amLODIPine BESYLATE 10 MG TABLET (FP) PO SCH (10:32)
[2022-03-07] MEDS: POLYETHYLENE GLYCOL (HEALTHYLAX) 3350 17 GM PACKET PO SCH (10:32)
[2022-03-07] MEDS: ALLOPURINOL 100 MG TABLET (FP) PO SCH (10:32)
[2022-03-07] MEDS: PANTOPRAZOLE 40 MG TABLET PO SCH (10:32)
[2022-03-07 14:34] VITALS: BP 130/62; PULSE 55; TEMP 98.2
[2022-03-07] MEDS: WARFARIN NA 2 MG TABLET PO SCH (17:02)
== END 2022-03-07 19:06 | DRG 177 ==
LOC: JER 14:17 → JERBED 16:40 → JICU 23:00 → J6S 02-26 13:52
PROVIDERS: ADMIT Internal Medicine; ATTEND Internal Medicine
DX: U07.1 COVID-19 (principal); J12.82 Pneumonia due to coronavirus disease 2019; J96.01 Acute respiratory failure with hypoxia; E87.1 Hypo-osmolality and hyponatremia; N39.0 Urinary tract infection, site not specified; G81.91 Hemiplegia, unspecified affecting right dominant side; I50.32 Chronic diastolic (congestive) heart failure; N17.9 Acute kidney failure, unspecified; I13.0 Hypertensive heart and chronic kidney disease with heart failure and stage 1 through stage 4 chronic kidney disease, or unspecified chronic kidney disease; N18.4 Chronic kidney disease, stage 4 (severe); T50.1X5A Adverse effect of loop [high-ceiling] diuretics, initial encounter; E03.9 Hypothyroidism, unspecified; E11.22 Type 2 diabetes mellitus with diabetic chronic kidney disease; I25.10 Atherosclerotic heart disease of native coronary artery without angina pectoris; Y92.89 Other specified places as the place of occurrence of the external cause; E87.6 Hypokalemia; B96.20 Unspecified Escherichia coli [E. coli] as the cause of diseases classified elsewhere; Z95.5 Presence of coronary angioplasty implant and graft; E87.70 Fluid overload, unspecified
CPT/HCPCS: 0241U-QW; 36415; 70450-TC; 71045-TC-FY; 80048; 80053; 81003; 82436; 82550; 82553; 82607; 82728; 82746; 82803; 82962; 83540; 83550; 83735; 83883; 83935; 84100; 84133; 84155; 84165; 84300; 84443; 84484; 85025; 85610; 85730; 86140; 87040; 87086; 87186; 93005; 93010; 93880-TC; 97116-GP; 97162-GP; 99291; C9803-CS; U0003; U0005

== ENCOUNTER 2022-04-06 11:53 | Observation (INO) | payer BC, OTHER ==
[2022-04-06 13:33] LABS: BASO % 0.7 % (0-2.0); EOS % 0.2 % (0-4.5); HEMATOCRIT 22.3 % (32.4-45.2); HEMOGLOBIN 7.2 GM/dL (10.7-15.3); LYMPH % 12.5 % (8-40); MCH 30.4 pg (25.7-33.7); MCHC 32.2 g/dl (32.0-36.0); MEAN CELL VOLUME 94.5 fl (80-96); MEAN PLT VOLUME 7.7 fl (7.5-11.1); MONO % 9.9 % (3.8-10.2); NEUT % 76.7 % (42.8-82.8); PLATELET COUNT 430 10^3/uL (134-434); RBC 2.36 M/mm3 (3.60-5.2); RDW 16.5 % (11.6-15.6)
[2022-04-06 13:54] LABS: INR 1.14 (0.83-1.09); PROTHROMBIN TIME (PATIENT) 13.1 SEC (9.7-13.0)
[2022-04-06 13:57] LABS: ACTIVATED PTT 29.6 SECONDS (25.2-36.5)
[2022-04-06 13:58] LABS: ALBUMIN 2.8 g/dl (3.4-5.0); BLOOD UREA NITROGEN 53.5 mg/dL (7-18); MAGNESIUM 1.9 mg/dL (1.8-2.4)
[2022-04-06 14:04] LABS: TOT PROT 6.5 g/dl (6.4-8.2)
[2022-04-06] MEDS ORDERED: EPOETIN ALFA-EPBX 20,000 UNIT/ML VIAL SQ ONE (14:04)
[2022-04-06 14:06] LABS: BILIRUBIN,TOTAL 0.5 mg/dL (0.2-1); CREATININE 2.4 mg/dL (0.55-1.3)
[2022-04-06] MEDS ORDERED: INSULIN (NOVOLOG) ASPART 100 UNITS/ML 10ML VIAL ONE (18:34)
[2022-04-06] MEDS: INSULIN SLIDING SCALE (NOVOLOG) 1 VIAL SQ SCH ×2 (18:37→21:29)
[2022-04-06] MEDS: WARFARIN NA 2 MG TABLET PO SCH (18:38)
[2022-04-06] MEDS: ATORVASTATIN CA 40 MG TABLET (FP) PO SCH (21:19)
[2022-04-06] MEDS: POLYETHYLENE GLYCOL (HEALTHYLAX) 3350 17 GM PACKET PO SCH (21:20)
[2022-04-06 21:27] VITALS: RESP 20
[2022-04-07] MEDS: LEVOTHYROXINE NA 25 MCG TABLET (FP) PO SCH (06:09)
[2022-04-07] MEDS: INSULIN SLIDING SCALE (NOVOLOG) 1 VIAL SQ SCH ×4 (06:13→22:47)
[2022-04-07] MEDS: amLODIPine BESYLATE 10 MG TABLET (FP) PO SCH (10:26)
[2022-04-07] MEDS: ALLOPURINOL 100 MG TABLET (FP) PO SCH (10:26)
[2022-04-07] MEDS: TORSEMIDE 20 MG TABLET (FP) PO SCH (10:26)
[2022-04-07] MEDS: PANTOPRAZOLE 40 MG TABLET PO SCH (10:26)
[2022-04-07] MEDS: POLYETHYLENE GLYCOL (HEALTHYLAX) 3350 17 GM PACKET PO SCH ×2 (10:27→22:40)
[2022-04-07 11:06] LABS: BASO % 1.6 % (0-2.0); EOS % 1.3 % (0-4.5); HEMATOCRIT 23.7 % (32.4-45.2); HEMOGLOBIN 7.7 GM/dL (10.7-15.3); LYMPH % 15.8 % (8-40); MCHC 32.4 g/dl (32.0-36.0); MEAN CELL VOLUME 92.6 fl (80-96); MEAN PLT VOLUME 8.2 fl (7.5-11.1); MONO % 10.8 % (3.8-10.2); NEUT % 70.5 % (42.8-82.8); PLATELET COUNT 411 10^3/uL (134-434); RBC 2.56 M/mm3 (3.60-5.2); RDW 17.9 % (11.6-15.6); RETICULOCYTES 3.18 % (0.5-1.5); WHITE BLOOD COUNT 6.4 K/mm3 (4.0-10.0)
[2022-04-07 11:11] LABS: ALBUMIN 2.6 g/dl (3.4-5.0); CALCIUM 8.6 mg/dL (8.5-10.1)
[2022-04-07 11:14] LABS: CREATININE 2.2 mg/dL (0.55-1.3)
[2022-04-07 11:16] LABS: BILIRUBIN,TOTAL 0.5 mg/dL (0.2-1); TOT PROT 6.1 g/dl (6.4-8.2)
[2022-04-07 11:43] VITALS: BMI 27.3
[2022-04-07 19:11] LABS: INR 1.1 (0.83-1.09); PROTHROMBIN TIME (PATIENT) 12.7 SEC (9.7-13.0)
[2022-04-07] MEDS: ATORVASTATIN CA 40 MG TABLET (FP) PO SCH (22:40)
[2022-04-07 23:00] LABS: INR 1.11 (0.83-1.09); PROTHROMBIN TIME (PATIENT) 12.8 SEC (9.7-13.0)
[2022-04-07 23:01] LABS: ACTIVATED PTT 30.3 SECONDS (25.2-36.5)
[2022-04-07] MEDS: WARFARIN NA 2 MG TABLET PO SCH (23:36)
[2022-04-08] MEDS: LEVOTHYROXINE NA 25 MCG TABLET (FP) PO SCH (06:06)
[2022-04-08] MEDS: INSULIN SLIDING SCALE (NOVOLOG) 1 VIAL SQ SCH ×2 (06:09→12:17)
[2022-04-08] MEDS ORDERED: FUROSEMIDE 40 MG/4 ML INJECTABLE VIAL ONE (07:45)
[2022-04-08] MEDS ORDERED: FUROSEMIDE 40 MG/4 ML INJECTABLE VIAL IVPUSH ONE (07:45)
[2022-04-08 10:02] LABS: HEMATOCRIT 28.1 % (32.4-45.2); HEMOGLOBIN 9.1 GM/dL (10.7-15.3); MCH 29.6 pg (25.7-33.7); MCHC 32.3 g/dl (32.0-36.0); MEAN CELL VOLUME 91.7 fl (80-96); MEAN PLT VOLUME 7.6 fl (7.5-11.1); PLATELET COUNT 403 10^3/uL (134-434); RBC 3.06 M/mm3 (3.60-5.2); RDW 18.2 % (11.6-15.6); WHITE BLOOD COUNT 6.8 K/mm3 (4.0-10.0)
[2022-04-08 10:26] LABS: CALCIUM 8.9 mg/dL (8.5-10.1)
[2022-04-08 10:28] LABS: BLOOD UREA NITROGEN 53.7 mg/dL (7-18)
[2022-04-08 10:30] LABS: CREATININE 2.4 mg/dL (0.55-1.3)
[2022-04-08] MEDS: POLYETHYLENE GLYCOL (HEALTHYLAX) 3350 17 GM PACKET PO SCH (10:36)
[2022-04-08] MEDS: PANTOPRAZOLE 40 MG TABLET PO SCH (10:36)
[2022-04-08] MEDS: ALLOPURINOL 100 MG TABLET (FP) PO SCH (10:36)
[2022-04-08] MEDS: amLODIPine BESYLATE 10 MG TABLET (FP) PO SCH (10:36)
[2022-04-08 10:45] LABS: ANISOCYTOSIS 0; MACROCYTOSIS 0
[2022-04-08] MEDS ORDERED: ALBUTEROL SO4 0.083% IH SOL 2.5 MG/3 ML VIAL.NEB. NEB PRN (10:57)
[2022-04-08] MEDS ORDERED: WARFARIN NA 2 MG TABLET PO ONE (12:55)
[2022-04-08] MEDS: TORSEMIDE 20 MG TABLET (FP) PO SCH (13:00)
[2022-04-08 13:43] VITALS: BP 149/71; PULSE 76; TEMP 98.6
== END 2022-04-08 15:01 | disposition home health service (06) ==
LOC: JER 11:53 → JERBED 13:31 → J8W 18:00
PROVIDERS: ADMIT Internal Medicine; ATTEND Internal Medicine
PROC: 3E023GC Introduction of Other Therapeutic Substance into Muscle, Percutaneous Approach (ICD-10-PCS; principal; 2022-04-06)
PROC: 3E033GC Introduction of Other Therapeutic Substance into Peripheral Vein, Percutaneous Approach (ICD-10-PCS; 2022-04-06)
PROC: 3E013VG Introduction of Insulin into Subcutaneous Tissue, Percutaneous Approach (ICD-10-PCS; 2022-04-06)
PROC: 30233N1 Transfusion of Nonautologous Red Blood Cells into Peripheral Vein, Percutaneous Approach (ICD-10-PCS; 2022-04-06)
DX: I13.0 Hypertensive heart and chronic kidney disease with heart failure and stage 1 through stage 4 chronic kidney disease, or unspecified chronic kidney disease (principal); N18.4 Chronic kidney disease, stage 4 (severe); I48.0 Paroxysmal atrial fibrillation; D64.9 Anemia, unspecified; G89.29 Other chronic pain; Z96.653 Presence of artificial knee joint, bilateral; Z95.1 Presence of aortocoronary bypass graft; B19.20 Unspecified viral hepatitis C without hepatic coma
CPT/HCPCS: 0241U-QW; 36415; 36430; 36511; 80048; 80053; 82272; 82607; 82728; 82962; 83540; 83735; 85025; 85045; 85610; 85730; 86850; 86870; 86900; 86901; 86902; 86922; 93005; 93010; 96372; 96374; 99285-25; G0378; P9038; P9058

== ENCOUNTER 2022-05-25 13:07 | Inpatient (IN) | payer OTHER ==
[2022-05-25] MEDS ORDERED: POLYETHYLENE GLYCOL (HEALTHYLAX) 3350 17 GM PACKET PO PRN (14:02)
[2022-05-25] MEDS ORDERED: FUROSEMIDE 40 MG/4 ML INJECTABLE VIAL IVPUSH ONE (14:24)
[2022-05-25] MEDS ORDERED: FUROSEMIDE 40 MG/4 ML INJECTABLE VIAL ONE (15:01)
[2022-05-25] MEDS ORDERED: FUROSEMIDE 40 MG/4 ML INJECTABLE VIAL IVPUSH SCH (16:00)
[2022-05-25 16:19] LABS: BASO % 0.2 % (0-2.0); EOS % 0.3 % (0-4.5); HEMATOCRIT 21.2 % (32.4-45.2); LYMPH % 4.9 % (8-40); MCH 31.6 pg (25.7-33.7); MEAN CELL VOLUME 95.7 fl (80-96); MEAN PLT VOLUME 8.7 fl (7.5-11.1); MONO % 3.9 % (3.8-10.2); NEUT % 90.7 % (42.8-82.8); PLATELET COUNT 229 10^3/uL (134-434); RBC 2.22 M/mm3 (3.60-5.2); RDW 20.8 % (11.6-15.6); VENOUS BASE EXCESS -9.7 mmol/L (-2-2); VENOUS O2 SATURATION 47.2 % (70-80); VENOUS PCO2 48.8 mmHg (38-52); WHITE BLOOD COUNT 7.3 K/mm3 (4.0-10.0)
[2022-05-25 16:43] LABS: CHLORIDE 96 mmol/L (98-107); POTASSIUM 4.8 mmol/L (3.5-5.1); SODIUM 129 mmol/L (136-145)
[2022-05-25 16:48] LABS: CALCIUM 9.1 mg/dL (8.5-10.1)
[2022-05-25 16:49] LABS: ALBUMIN 3.2 g/dl (3.4-5.0); ANION GAP 12 MMOL/L (8-16); CO2 21 mmol/L (21-32); GLUCOSE,RANDOM 163 mg/dL (74-106); MAGNESIUM 2.7 mg/dL (1.8-2.4); SGPT/ALT 66 U/L (13-61)
[2022-05-25 16:50] LABS: VENOUS PH 7.184 (7.310-7.410)
[2022-05-25 16:51] LABS: BILIRUBIN,TOTAL 0.4 mg/dL (0.2-1); CREATININE 3.3 mg/dL (0.55-1.3); PHOSPHOROUS 7.7 mg/dL (2.5-4.9); SGOT/AST 48 U/L (15-37); TOT PROT 6.8 g/dl (6.4-8.2)
[2022-05-25 16:52] LABS: ALK PHOS 164 U/L (45-117)
[2022-05-25 16:56] LABS: N-TERMINAL BNP 5405.2 pg/ml (5-450)
[2022-05-25] MEDS ORDERED: FUROSEMIDE 100 MG/10 ML INJECTABLE VIAL IVPB SCH (16:59)
[2022-05-25 17:00] LABS: ANISOCYTOSIS 2+; MACROCYTOSIS 1+; OVALOCYTE 1+; TARGET CELLS 2+
[2022-05-25 17:11] LABS: BLOOD UREA NITROGEN 142.6 mg/dL (7-18)
[2022-05-25] MEDS ORDERED: WARFARIN NA 5 MG TABLET PO SCH (18:00)
[2022-05-25] MEDS ORDERED: WARFARIN NA 2 MG TABLET PO SCH (18:00)
[2022-05-25] MEDS ORDERED: EPOETIN ALFA-EPBX 20,000 UNIT/ML VIAL SQ ONE (19:30)
[2022-05-25] MEDS ORDERED: IRON SUCROSE INJECTION 100 MG in SODIUM CHLORIDE 95 ML IVPB ONE (19:30)
[2022-05-25] MEDS ORDERED: WARFARIN NA 5 MG TABLET ONE (20:08)
[2022-05-25] MEDS: ATORVASTATIN CA 40 MG TABLET (FP) PO SCH (21:45)
[2022-05-26] MEDS ORDERED: FUROSEMIDE 40 MG/4 ML INJECTABLE VIAL IVPUSH ONE ×2 (00:30→03:45)
[2022-05-26] MEDS: ACETAMINOPHEN 325 MG TABLET (FP) PO PRN ×3 (06:44→22:30)
[2022-05-26] MEDS: LEVOTHYROXINE NA 25 MCG TABLET (FP) PO SCH (06:44)
[2022-05-26 08:49] LABS: MAGNESIUM 2.4 mg/dL (1.8-2.4)
[2022-05-26 08:51] LABS: PHOSPHOROUS 7.7 mg/dL (2.5-4.9)
[2022-05-26] MEDS: FUROSEMIDE 100 MG/10 ML INJECTABLE VIAL IVPB SCH ×2 (10:24→13:23)
[2022-05-26] MEDS: PANTOPRAZOLE 40 MG TABLET PO SCH (10:24)
[2022-05-26] MEDS: amLODIPine BESYLATE 10 MG TABLET (FP) PO SCH (10:24)
[2022-05-26] MEDS: ALLOPURINOL 100 MG TABLET (FP) PO SCH (10:24)
[2022-05-26] MEDS: CALCIUM ACETATE 667 MG CAPSULE (FP) PO SCH ×2 (11:19→16:31)
[2022-05-26 12:22] LABS: HEMATOCRIT 24.8 % (32.4-45.2); HEMOGLOBIN 8.2 GM/dL (10.7-15.3); MCH 31.1 pg (25.7-33.7); MEAN CELL VOLUME 94.3 fl (80-96); MEAN PLT VOLUME 8.9 fl (7.5-11.1); PLATELET COUNT 207 10^3/uL (134-434); RBC 2.63 M/mm3 (3.60-5.2); RDW 19.8 % (11.6-15.6); WHITE BLOOD COUNT 11.4 K/mm3 (4.0-10.0)
[2022-05-26 12:32] LABS: PROTHROMBIN TIME (PATIENT) 88.9 SEC (9.7-13.0)
[2022-05-26 12:47] LABS: INR 7.82 (0.83-1.09)
[2022-05-26 12:48] LABS: CHLORIDE 100 mmol/L (98-107); SODIUM 132 mmol/L (136-145)
[2022-05-26 12:55] LABS: CALCIUM 8.9 mg/dL (8.5-10.1)
[2022-05-26 12:56] LABS: ALBUMIN 3.2 g/dl (3.4-5.0); ANION GAP 11 MMOL/L (8-16); CO2 22 mmol/L (21-32); GLUCOSE,RANDOM 159 mg/dL (74-106)
[2022-05-26 12:58] LABS: CREATININE 3.2 mg/dL (0.55-1.3); SGOT/AST 46 U/L (15-37); SGPT/ALT 63 U/L (13-61)
[2022-05-26 12:59] LABS: TOT PROT 6.7 g/dl (6.4-8.2)
[2022-05-26 13:01] LABS: BILIRUBIN,TOTAL 0.7 mg/dL (0.2-1)
[2022-05-26 13:03] LABS: ANISOCYTOSIS 2+; MACROCYTOSIS 1+; OVALOCYTE 1+
[2022-05-26 13:41] LABS: ALK PHOS 130 U/L (45-117); BLOOD UREA NITROGEN 137.8 mg/dL (7-18)
[2022-05-26] MEDS: ATORVASTATIN CA 40 MG TABLET (FP) PO SCH (21:28)
[2022-05-27] MEDS: FUROSEMIDE 100 MG/10 ML INJECTABLE VIAL IVPB SCH ×2 (05:24→13:05)
[2022-05-27] MEDS: LEVOTHYROXINE NA 25 MCG TABLET (FP) PO SCH (06:42)
[2022-05-27 08:12] LABS: BASO % 0.3 % (0-2.0); HEMATOCRIT 21.8 % (32.4-45.2); HEMOGLOBIN 7.2 GM/dL (10.7-15.3); LYMPH % 1.9 % (8-40); MCH 31.3 pg (25.7-33.7); MCHC 33.3 g/dl (32.0-36.0); MEAN CELL VOLUME 94.1 fl (80-96); MEAN PLT VOLUME 9.2 fl (7.5-11.1); MONO % 6.9 % (3.8-10.2); NEUT % 90.9 % (42.8-82.8); PLATELET COUNT 183 10^3/uL (134-434); RBC 2.31 M/mm3 (3.60-5.2); RDW 20.4 % (11.6-15.6); WHITE BLOOD COUNT 12.9 K/mm3 (4.0-10.0)
[2022-05-27 08:37] LABS: PROTHROMBIN TIME (PATIENT) 148.8 SEC (9.7-13.0)
[2022-05-27 08:38] LABS: INR 13.16 (0.83-1.09)
[2022-05-27] MEDS: PANTOPRAZOLE 40 MG TABLET PO SCH (09:58)
[2022-05-27] MEDS: amLODIPine BESYLATE 10 MG TABLET (FP) PO SCH (09:58)
[2022-05-27] MEDS: ALLOPURINOL 100 MG TABLET (FP) PO SCH (09:58)
[2022-05-27] MEDS: CALCIUM ACETATE 667 MG CAPSULE (FP) PO SCH ×3 (09:58→17:06)
[2022-05-27] MEDS: ACETAMINOPHEN 325 MG TABLET (FP) PO PRN (10:00)
[2022-05-27 10:12] LABS: POTASSIUM 4.8 mmol/L (3.5-5.1); SODIUM 132 mmol/L (136-145)
[2022-05-27 10:13] LABS: CALCIUM 8.9 mg/dL (8.5-10.1); CHLORIDE 99 mmol/L (98-107); MAGNESIUM 2.5 mg/dL (1.8-2.4)
[2022-05-27 10:15] LABS: ALBUMIN 3.2 g/dl (3.4-5.0); GLUCOSE,RANDOM 129 mg/dL (74-106)
[2022-05-27 10:16] LABS: ANION GAP 13 MMOL/L (8-16); CO2 20 mmol/L (21-32); CREATININE 3.2 mg/dL (0.55-1.3); SGOT/AST 62 U/L (15-37); SGPT/ALT 62 U/L (13-61)
[2022-05-27 10:19] LABS: TOT PROT 6.5 g/dl (6.4-8.2)
[2022-05-27 10:20] LABS: BILIRUBIN,TOTAL 0.4 mg/dL (0.2-1)
[2022-05-27 10:21] LABS: ALK PHOS 120 U/L (45-117)
[2022-05-27] MEDS ORDERED: PHYTONADIONE 10 MG/1 ML AMP IM ONE (11:30)
[2022-05-27 12:15] LABS: GAMMA GLUTAMYL TRANSPEPTIDASE 57 U/L (5-85)
[2022-05-27 12:18] LABS: IRON SERUM 58 ug/dL (50-175); TOTAL IRON BINDING CAPACITY 226 ug/dL (250-450)
[2022-05-27] MEDS ORDERED: PHYTONADIONE 5 MG TABLET PO ONE (13:20)
[2022-05-27] MEDS ORDERED: PIPERACILLIN/TAZOB 2.25 GM 2.25 GM in DEXTROSE 5%-WATER - 50 ML IVPB ONE (21:15)
[2022-05-27] MEDS ORDERED: CHLORHEXIDINE GLUCONATE 4% CLEANSER FOR DECOLONIZATION TP SCH (22:00)
[2022-05-27] MEDS ORDERED: MUPIROCIN 2% TOPICAL OINTMENT FOR DECOLONIZATION NS SCH (22:00)
[2022-05-27] MEDS: ATORVASTATIN CA 40 MG TABLET (FP) PO SCH (22:04)
[2022-05-28] MEDS ORDERED: METOLAZONE 5 MG TABLET PO ONE (04:11)
[2022-05-28] MEDS ORDERED: FUROSEMIDE 100 MG/10 ML INJECTABLE VIAL IVPB ONE (04:12)
[2022-05-28] MEDS: DOPAMINE 400 MG/D5W - 400,000 MCG/250 ML INFUS.BAG IVPB SCH (04:45)
[2022-05-28] MEDS ORDERED: FUROSEMIDE 100 MG/10 ML INJECTABLE VIAL IVPB SCH (06:00)
[2022-05-28] MEDS: LEVOTHYROXINE NA 25 MCG TABLET (FP) PO SCH (06:28)
[2022-05-28 07:11] LABS: HEMATOCRIT 19.2 % (32.4-45.2); MCH 31.7 pg (25.7-33.7); MCHC 34.1 g/dl (32.0-36.0); MEAN CELL VOLUME 93.1 fl (80-96); PLATELET COUNT 166 10^3/uL (134-434); RBC 2.06 M/mm3 (3.60-5.2); RDW 20.5 % (11.6-15.6); WHITE BLOOD COUNT 13.5 K/mm3 (4.0-10.0)
[2022-05-28 07:19] LABS: HEMOGLOBIN 6.5 GM/dL (10.7-15.3)
[2022-05-28 07:25] LABS: CHLORIDE 98 mmol/L (98-107); POTASSIUM 4.7 mmol/L (3.5-5.1); SODIUM 132 mmol/L (136-145)
[2022-05-28 07:27] LABS: CALCIUM 8.7 mg/dL (8.5-10.1); GLUCOSE,RANDOM 113 mg/dL (74-106)
[2022-05-28 07:28] LABS: ANION GAP 11 MMOL/L (8-16); CO2 23 mmol/L (21-32)
[2022-05-28 07:31] LABS: CREATININE 3.2 mg/dL (0.55-1.3); PHOSPHOROUS 7.8 mg/dL (2.5-4.9); SGOT/AST 69 U/L (15-37); SGPT/ALT 59 U/L (13-61)
[2022-05-28 07:32] LABS: BILIRUBIN,TOTAL 0.4 mg/dL (0.2-1); TOT PROT 6.2 g/dl (6.4-8.2)
[2022-05-28 07:33] LABS: ALK PHOS 111 U/L (45-117)
[2022-05-28 07:43] LABS: BLOOD UREA NITROGEN 130.8 mg/dL (7-18)
[2022-05-28 09:15] LABS: ANISOCYTOSIS 3+; MACROCYTOSIS 0
[2022-05-28 09:51] LABS: PROTHROMBIN TIME (PATIENT) 116.2 SEC (9.7-13.0)
[2022-05-28 09:53] LABS: INR 10.25 (0.83-1.09)
[2022-05-28] MEDS ORDERED: POLYETHYLENE GLYCOL (HEALTHYLAX) 3350 17 GM PACKET PO SCH (10:00)
[2022-05-28] MEDS ORDERED: PHYTONADIONE 10 MG/1 ML AMP IVPB ONE (10:02)
[2022-05-28] MEDS: CALCIUM ACETATE 667 MG CAPSULE (FP) PO SCH ×3 (10:18→17:02)
[2022-05-28] MEDS: ALLOPURINOL 100 MG TABLET (FP) PO SCH (10:19)
[2022-05-28] MEDS: POLYETHYLENE GLYCOL (HEALTHYLAX) 3350 17 GM PACKET PO SCH (10:19)
[2022-05-28] MEDS: PANTOPRAZOLE 40 MG TABLET PO SCH (10:19)
[2022-05-28] MEDS ORDERED: PHYTONADIONE 10 MG/1 ML AMP IM ONE (11:42)
[2022-05-28] MEDS ORDERED: FUROSEMIDE 40 MG/4 ML INJECTABLE VIAL IVPUSH ONE (16:45)
[2022-05-28] MEDS ORDERED: FUROSEMIDE 40 MG/4 ML INJECTABLE VIAL ONE (16:55)
[2022-05-28] MEDS: PIPERACILLIN/TAZOB 2.25 GM 2.25 GM in DEXTROSE 5%-WATER - 50 ML IVPB SCH ×2 (17:01→17:25)
[2022-05-28] MEDS: ATORVASTATIN CA 40 MG TABLET (FP) PO SCH (21:26)
[2022-05-29] MEDS: PIPERACILLIN/TAZOB 2.25 GM 2.25 GM in DEXTROSE 5%-WATER - 50 ML IVPB SCH ×3 (01:46→17:17)
[2022-05-29] MEDS: LEVOTHYROXINE NA 25 MCG TABLET (FP) PO SCH (06:14)
[2022-05-29 07:09] LABS: CHLORIDE 100 mmol/L (98-107); POTASSIUM 4.6 mmol/L (3.5-5.1); SODIUM 133 mmol/L (136-145)
[2022-05-29 07:12] LABS: HEMATOCRIT 23.2 % (32.4-45.2); HEMOGLOBIN 7.7 GM/dL (10.7-15.3); MCH 30.8 pg (25.7-33.7); MCHC 33.4 g/dl (32.0-36.0); MEAN CELL VOLUME 92.3 fl (80-96); MEAN PLT VOLUME 9.1 fl (7.5-11.1); PLATELET COUNT 177 10^3/uL (134-434); RBC 2.51 M/mm3 (3.60-5.2); RDW 20.7 % (11.6-15.6); WHITE BLOOD COUNT 15.9 K/mm3 (4.0-10.0)
[2022-05-29 07:14] LABS: ALBUMIN 2.6 g/dl (3.4-5.0); ANION GAP 11 MMOL/L (8-16); CALCIUM 8.7 mg/dL (8.5-10.1); CO2 23 mmol/L (21-32); MAGNESIUM 2.6 mg/dL (1.8-2.4)
[2022-05-29 07:16] LABS: PHOSPHOROUS 7.4 mg/dL (2.5-4.9); SGPT/ALT 58 U/L (13-61)
[2022-05-29 07:17] LABS: SGOT/AST 85 U/L (15-37)
[2022-05-29 07:18] LABS: BILIRUBIN,TOTAL 0.6 mg/dL (0.2-1); CREATININE 3.5 mg/dL (0.55-1.3); TOT PROT 5.9 g/dl (6.4-8.2)
[2022-05-29 07:19] LABS: ALK PHOS 96 U/L (45-117)
[2022-05-29 07:26] LABS: INR 3.95 (0.83-1.09); PROTHROMBIN TIME (PATIENT) 45.2 SEC (9.7-13.0)
[2022-05-29 07:30] LABS: BLOOD UREA NITROGEN 132.1 mg/dL (7-18); GLUCOSE,RANDOM 86 mg/dL (74-106)
[2022-05-29] MEDS: ALLOPURINOL 100 MG TABLET (FP) PO SCH (09:09)
[2022-05-29] MEDS: PANTOPRAZOLE 40 MG TABLET PO SCH (09:09)
[2022-05-29] MEDS: CALCIUM ACETATE 667 MG CAPSULE (FP) PO SCH ×3 (09:09→17:18)
[2022-05-29] MEDS: POLYETHYLENE GLYCOL (HEALTHYLAX) 3350 17 GM PACKET PO SCH (09:10)
[2022-05-29 09:11] LABS: ANISOCYTOSIS 0; HELMET CELLS 0; HOWELL-JOLLY BODIES 0; MACROCYTOSIS 0; OVALOCYTE 0; ROULEAU 0; SICKELED CELLS 0; TARGET CELLS 0; TEAR DROP CELLS 0; TOXIC GRANULATION 0
[2022-05-29] MEDS: DOPAMINE 400 MG/D5W - 400,000 MCG/250 ML INFUS.BAG IVPB SCH ×2 (12:54→20:04)
[2022-05-29] MEDS: FUROSEMIDE 40 MG/4 ML INJECTABLE VIAL IVPUSH SCH (14:12)
[2022-05-29] MEDS: HYDROCORTISONE SOD SUCCINATE 100 MG/2 ML VIAL IVPB SCH (18:03)
[2022-05-29] MEDS: FUROSEMIDE INJECTION 100 MG in SODIUM CHLORIDE 90 ML IVPB SCH (18:03)
[2022-05-29] MEDS: ATORVASTATIN CA 40 MG TABLET (FP) PO SCH (21:38)
[2022-05-30] MEDS: HYDROCORTISONE SOD SUCCINATE 100 MG/2 ML VIAL IVPB SCH ×2 (01:00→09:19)
[2022-05-30] MEDS: PIPERACILLIN/TAZOB 2.25 GM 2.25 GM in DEXTROSE 5%-WATER - 50 ML IVPB SCH ×3 (02:13→18:39)
[2022-05-30] MEDS: FUROSEMIDE INJECTION 100 MG in SODIUM CHLORIDE 90 ML IVPB SCH ×3 (02:14→17:29)
[2022-05-30] MEDS: LEVOTHYROXINE NA 25 MCG TABLET (FP) PO SCH (06:10)
[2022-05-30] MEDS: FUROSEMIDE 40 MG/4 ML INJECTABLE VIAL IVPUSH SCH ×2 (06:10→14:19)
[2022-05-30 07:34] LABS: BASO % 0.2 % (0-2.0); HEMATOCRIT 22.6 % (32.4-45.2); HEMOGLOBIN 7.4 GM/dL (10.7-15.3); LYMPH % 1.8 % (8-40); MCH 30.5 pg (25.7-33.7); MCHC 32.8 g/dl (32.0-36.0); MEAN CELL VOLUME 93.2 fl (80-96); MEAN PLT VOLUME 8.6 fl (7.5-11.1); MONO % 1.8 % (3.8-10.2); NEUT % 96.2 % (42.8-82.8); PLATELET COUNT 181 10^3/uL (134-434); RBC 2.42 M/mm3 (3.60-5.2); WHITE BLOOD COUNT 12.8 K/mm3 (4.0-10.0)
[2022-05-30 07:41] LABS: INR 2.11 (0.83-1.09); PROTHROMBIN TIME (PATIENT) 24.3 SEC (9.7-13.0)
[2022-05-30 07:55] LABS: CHLORIDE 98 mmol/L (98-107); SODIUM 132 mmol/L (136-145)
[2022-05-30 07:57] LABS: CALCIUM 8.7 mg/dL (8.5-10.1)
[2022-05-30 07:58] LABS: ALBUMIN 2.6 g/dl (3.4-5.0); ANION GAP 11 MMOL/L (8-16); CO2 24 mmol/L (21-32); GLUCOSE,RANDOM 130 mg/dL (74-106); MAGNESIUM 2.6 mg/dL (1.8-2.4)
[2022-05-30 08:01] LABS: CREATININE 3.7 mg/dL (0.55-1.3); SGOT/AST 78 U/L (15-37); SGPT/ALT 55 U/L (13-61)
[2022-05-30 08:02] LABS: BILIRUBIN,TOTAL 0.6 mg/dL (0.2-1); PHOSPHOROUS 7.8 mg/dL (2.5-4.9); TOT PROT 5.9 g/dl (6.4-8.2)
[2022-05-30 08:03] LABS: ALK PHOS 92 U/L (45-117)
[2022-05-30 08:13] LABS: BLOOD UREA NITROGEN 139.2 mg/dL (7-18); N-TERMINAL BNP 19210.4 pg/ml (5-450)
[2022-05-30] MEDS: CALCIUM ACETATE 667 MG CAPSULE (FP) PO SCH ×3 (09:18→18:08)
[2022-05-30] MEDS: POLYETHYLENE GLYCOL (HEALTHYLAX) 3350 17 GM PACKET PO SCH ×3 (09:18→21:19)
[2022-05-30] MEDS: ALLOPURINOL 100 MG TABLET (FP) PO SCH (09:19)
[2022-05-30] MEDS: PANTOPRAZOLE 40 MG TABLET PO SCH (09:19)
[2022-05-30 10:00] LABS: ANISOCYTOSIS 1+; MACROCYTOSIS 1+
[2022-05-30] MEDS ORDERED: DOCUSATE SODIUM 100 MG CAPSULE (FP) PO PRN (12:29)
[2022-05-30 19:58] LABS: ARTERIAL BLD GAS O2 SATURATION 96.1 % (95-98); ARTERIAL BLOOD GAS BASE EXCESS -5.4 mmol/L (-2-2); ARTERIAL BLOOD GAS PO2 102.1 mmHg (80-100)
[2022-05-30 20:02] LABS: ALLENS TEST POSITIVE
[2022-05-30 20:03] LABS: VENT MODE S/T; VENT RATE 14
[2022-05-30 20:04] LABS: ARTERIAL BLOOD GAS pH 7.193 (7.350-7.450)
[2022-05-30] MEDS: DOPAMINE 400 MG/D5W - 400,000 MCG/250 ML INFUS.BAG IVPB SCH (21:19)
[2022-05-30] MEDS: ATORVASTATIN CA 40 MG TABLET (FP) PO SCH (21:19)
[2022-05-30 22:16] LABS: ARTERIAL BLD GAS O2 SATURATION 96.8 % (95-98); ARTERIAL BLOOD GAS BASE EXCESS -3.2 mmol/L (-2-2); ARTERIAL BLOOD GAS PO2 104.5 mmHg (80-100); ARTERIAL BLOOD GAS pH 7.244 (7.350-7.450)
[2022-05-30 22:18] LABS: ALLENS TEST POSITIVE; VENT MODE S/T
[2022-05-30 22:19] LABS: VENT RATE 18
[2022-05-31] MEDS: PIPERACILLIN/TAZOB 2.25 GM 2.25 GM in DEXTROSE 5%-WATER - 50 ML IVPB SCH ×4 (01:55→18:34)
[2022-05-31] MEDS: ATORVASTATIN CA 40 MG TABLET (FP) PO SCH ×2 (01:56→22:26)
[2022-05-31] MEDS: DOPAMINE 400 MG/D5W - 400,000 MCG/250 ML INFUS.BAG IVPB SCH (05:38)
[2022-05-31] MEDS: LEVOTHYROXINE NA 25 MCG TABLET (FP) PO SCH (06:23)
[2022-05-31 06:53] LABS: ARTERIAL BLD GAS O2 SATURATION 94.5 % (95-98); ARTERIAL BLOOD GAS BASE EXCESS -6.4 mmol/L (-2-2); ARTERIAL BLOOD GAS PO2 81.8 mmHg (80-100); ARTERIAL BLOOD GAS pH 7.264 (7.350-7.450)
[2022-05-31 07:22] LABS: BASO % 0.1 % (0-2.0); HEMATOCRIT 21.4 % (32.4-45.2); HEMOGLOBIN 7.1 GM/dL (10.7-15.3); LYMPH % 7.7 % (8-40); MCH 31.1 pg (25.7-33.7); MEAN CELL VOLUME 94.1 fl (80-96); MEAN PLT VOLUME 8.4 fl (7.5-11.1); MONO % 7.2 % (3.8-10.2); PLATELET COUNT 179 10^3/uL (134-434); RBC 2.28 M/mm3 (3.60-5.2); RDW 20.6 % (11.6-15.6); WHITE BLOOD COUNT 10.3 K/mm3 (4.0-10.0)
[2022-05-31 07:32] LABS: INR 2.15 (0.83-1.09); PROTHROMBIN TIME (PATIENT) 24.8 SEC (9.7-13.0)
[2022-05-31 07:45] LABS: CHLORIDE 99 mmol/L (98-107); POTASSIUM 4.7 mmol/L (3.5-5.1); SODIUM 133 mmol/L (136-145)
[2022-05-31 07:52] LABS: ANION GAP 10 MMOL/L (8-16); CALCIUM 8.6 mg/dL (8.5-10.1); CO2 24 mmol/L (21-32); GLUCOSE,RANDOM 99 mg/dL (74-106); MAGNESIUM 2.6 mg/dL (1.8-2.4)
[2022-05-31 07:53] LABS: ALBUMIN 2.5 g/dl (3.4-5.0); SGOT/AST 63 U/L (15-37)
[2022-05-31 07:55] LABS: CREATININE 4.2 mg/dL (0.55-1.3); PHOSPHOROUS 7.3 mg/dL (2.5-4.9); SGPT/ALT 50 U/L (13-61)
[2022-05-31 07:57] LABS: TOT PROT 5.8 g/dl (6.4-8.2)
[2022-05-31 07:58] LABS: ALK PHOS 83 U/L (45-117); BILIRUBIN,TOTAL 0.8 mg/dL (0.2-1)
[2022-05-31 07:59] LABS: BLOOD UREA NITROGEN 145.6 mg/dL (7-18)
[2022-05-31] MEDS: POLYETHYLENE GLYCOL (HEALTHYLAX) 3350 17 GM PACKET PO SCH ×2 (09:45→22:26)
[2022-05-31] MEDS: ALLOPURINOL 100 MG TABLET (FP) PO SCH (09:45)
[2022-05-31] MEDS: PANTOPRAZOLE 40 MG TABLET PO SCH (09:45)
[2022-05-31] MEDS: CALCIUM ACETATE 667 MG CAPSULE (FP) PO SCH ×3 (09:45→17:19)
[2022-05-31] MEDS ORDERED: SODIUM CHLORIDE 250 ML IV PRN ×2 (11:16→17:38)
[2022-05-31] MEDS ORDERED: BISACODYL 5 MG TABLET.DR (FP) PO PRN (12:00)
[2022-05-31] MEDS ORDERED: PHYTONADIONE 10 MG/1 ML AMP IVPB ONE (12:30)
[2022-05-31] MEDS ORDERED: ALBUMIN HUMAN 25% 12.5 GM/50 ML VIAL IV SCH (13:15)
[2022-05-31] MEDS: FUROSEMIDE INJECTION 100 MG in SODIUM CHLORIDE 90 ML IVPB SCH ×2 (17:59→20:01)
[2022-05-31] MEDS ORDERED: FUROSEMIDE 100 MG/10 ML INJECTABLE VIAL IVPB ONE (22:24)
[2022-05-31] MEDS ORDERED: METOLAZONE 5 MG TABLET PO ONE (22:25)
[2022-06-01] MEDS: PIPERACILLIN/TAZOB 2.25 GM 2.25 GM in DEXTROSE 5%-WATER - 50 ML IVPB SCH ×3 (01:26→17:33)
[2022-06-01] MEDS: LEVOTHYROXINE NA 25 MCG TABLET (FP) PO SCH (06:14)
[2022-06-01 07:03] LABS: BASO % 0.4 % (0-2.0); HEMATOCRIT 20.8 % (32.4-45.2); HEMOGLOBIN 7.1 GM/dL (10.7-15.3); LYMPH % 5.5 % (8-40); MCH 31.9 pg (25.7-33.7); MEAN CELL VOLUME 93.7 fl (80-96); MEAN PLT VOLUME 8.2 fl (7.5-11.1); MONO % 6.3 % (3.8-10.2); NEUT % 86.8 % (42.8-82.8); PLATELET COUNT 166 10^3/uL (134-434); RBC 2.22 M/mm3 (3.60-5.2); WHITE BLOOD COUNT 9.2 K/mm3 (4.0-10.0)
[2022-06-01 07:45] LABS: CHLORIDE 98 mmol/L (98-107); POTASSIUM 4.4 mmol/L (3.5-5.1); SODIUM 133 mmol/L (136-145)
[2022-06-01 07:56] LABS: ALBUMIN 2.6 g/dl (3.4-5.0); ALK PHOS 99 U/L (45-117); ANION GAP 12 MMOL/L (8-16); BILIRUBIN,TOTAL 0.8 mg/dL (0.2-1); BLOOD UREA NITROGEN 146.7 mg/dL (7-18); CALCIUM 8.4 mg/dL (8.5-10.1); CO2 23 mmol/L (21-32); CREATININE 4.3 mg/dL (0.55-1.3); GLUCOSE,RANDOM 136 mg/dL (74-106); MAGNESIUM 2.5 mg/dL (1.8-2.4); SGOT/AST 53 U/L (15-37); SGPT/ALT 50 U/L (13-61)
[2022-06-01] MEDS: CALCIUM ACETATE 667 MG CAPSULE (FP) PO SCH ×3 (09:55→17:33)
[2022-06-01] MEDS: POLYETHYLENE GLYCOL (HEALTHYLAX) 3350 17 GM PACKET PO SCH ×2 (09:55→23:24)
[2022-06-01] MEDS: PANTOPRAZOLE 40 MG TABLET PO SCH (09:56)
[2022-06-01] MEDS: ALLOPURINOL 100 MG TABLET (FP) PO SCH (09:57)
[2022-06-01] MEDS: DOPAMINE 400 MG/D5W - 400,000 MCG/250 ML INFUS.BAG IVPB SCH (10:19)
[2022-06-01] MEDS: ALBUMIN HUMAN 25% 12.5 GM/50 ML VIAL IV SCH ×4 (14:00→15:30)
[2022-06-01] MEDS ORDERED: EPOETIN ALFA-EPBX 20,000 UNIT/ML VIAL IVPUSH ONE (14:00)
[2022-06-01] MEDS: FUROSEMIDE INJECTION 100 MG in SODIUM CHLORIDE 90 ML IVPB SCH (17:35)
[2022-06-01] MEDS ORDERED: SODIUM CHLORIDE 250 ML IV PRN (21:54)
[2022-06-01] MEDS: ATORVASTATIN CA 40 MG TABLET (FP) PO SCH (23:24)
[2022-06-02] MEDS: PIPERACILLIN/TAZOB 2.25 GM 2.25 GM in DEXTROSE 5%-WATER - 50 ML IVPB SCH ×3 (03:10→20:05)
[2022-06-02 06:20] LABS: BASO % 0.3 % (0-2.0); EOS % 1.3 % (0-4.5); HEMATOCRIT 21.3 % (32.4-45.2); HEMOGLOBIN 7.2 GM/dL (10.7-15.3); LYMPH % 8.8 % (8-40); MCH 31.7 pg (25.7-33.7); MCHC 33.8 g/dl (32.0-36.0); MEAN CELL VOLUME 93.7 fl (80-96); MEAN PLT VOLUME 8.3 fl (7.5-11.1); MONO % 7.9 % (3.8-10.2); NEUT % 81.7 % (42.8-82.8); PLATELET COUNT 166 10^3/uL (134-434); RBC 2.27 M/mm3 (3.60-5.2); WHITE BLOOD COUNT 8.6 K/mm3 (4.0-10.0)
[2022-06-02] MEDS: LEVOTHYROXINE NA 25 MCG TABLET (FP) PO SCH (06:21)
[2022-06-02] MEDS: DOPAMINE 400 MG/D5W - 400,000 MCG/250 ML INFUS.BAG IVPB SCH (06:21)
[2022-06-02] MEDS: FUROSEMIDE INJECTION 100 MG in SODIUM CHLORIDE 90 ML IVPB SCH (06:24)
[2022-06-02 06:29] LABS: INR 2.13 (0.83-1.09); PROTHROMBIN TIME (PATIENT) 24.5 SEC (9.7-13.0)
[2022-06-02 06:46] LABS: ALBUMIN 2.7 g/dl (3.4-5.0); MAGNESIUM 2.2 mg/dL (1.8-2.4)
[2022-06-02 06:47] LABS: CALCIUM 8.6 mg/dL (8.5-10.1)
[2022-06-02 06:49] LABS: CREATININE 3.1 mg/dL (0.55-1.3)
[2022-06-02 06:51] LABS: BILIRUBIN,TOTAL 0.9 mg/dL (0.2-1)
[2022-06-02 07:07] LABS: BLOOD UREA NITROGEN 86.2 mg/dL (7-18)
[2022-06-02] MEDS: CALCIUM ACETATE 667 MG CAPSULE (FP) PO SCH ×2 (08:31→12:30)
[2022-06-02] MEDS: POLYETHYLENE GLYCOL (HEALTHYLAX) 3350 17 GM PACKET PO SCH ×2 (09:08→21:05)
[2022-06-02] MEDS: FUROSEMIDE 100 MG/10 ML INJECTABLE VIAL IVPB SCH (09:08)
[2022-06-02] MEDS: ALLOPURINOL 100 MG TABLET (FP) PO SCH (09:09)
[2022-06-02] MEDS: PANTOPRAZOLE 40 MG TABLET PO SCH (09:09)
[2022-06-02 15:57] VITALS: BMI 29.2
[2022-06-02] MEDS ORDERED: SODIUM CHLORIDE 250 ML IV PRN (16:54)
[2022-06-02] MEDS: ALBUMIN HUMAN 25% 12.5 GM/50 ML VIAL IV SCH ×4 (18:30→20:03)
[2022-06-02] MEDS: ATORVASTATIN CA 40 MG TABLET (FP) PO SCH (21:05)
[2022-06-03] MEDS: PIPERACILLIN/TAZOB 2.25 GM 2.25 GM in DEXTROSE 5%-WATER - 50 ML IVPB SCH ×3 (02:15→17:12)
[2022-06-03] MEDS: LEVOTHYROXINE NA 25 MCG TABLET (FP) PO SCH (06:11)
[2022-06-03] MEDS: DOPAMINE 400 MG/D5W - 400,000 MCG/250 ML INFUS.BAG IVPB SCH (06:11)
[2022-06-03 06:40] LABS: HEMATOCRIT 31.1 % (32.4-45.2); HEMOGLOBIN 10.5 GM/dL (10.7-15.3); MCH 30.7 pg (25.7-33.7); MCHC 33.8 g/dl (32.0-36.0); MEAN CELL VOLUME 90.8 fl (80-96); MEAN PLT VOLUME 8.1 fl (7.5-11.1); PLATELET COUNT 161 10^3/uL (134-434); RBC 3.43 M/mm3 (3.60-5.2); RDW 19.4 % (11.6-15.6); WHITE BLOOD COUNT 10.9 K/mm3 (4.0-10.0)
[2022-06-03] MEDS ORDERED: SODIUM CHLORIDE 250 ML IV PRN (07:32)
[2022-06-03] MEDS ORDERED: INSULIN (NOVOLOG) ASPART 100 UNITS/ML 10ML VIAL ONE (07:56)
[2022-06-03 08:15] LABS: ALBUMIN 2.8 g/dl (3.4-5.0); BLOOD UREA NITROGEN 61.7 mg/dL (7-18); CALCIUM 8.9 mg/dL (8.5-10.1); CREATININE 2.6 mg/dL (0.55-1.3); MAGNESIUM 2.1 mg/dL (1.8-2.4); POTASSIUM 3.8 mmol/L (3.5-5.1); TOT PROT 6.4 g/dl (6.4-8.2)
[2022-06-03 09:01] LABS: ANISOCYTOSIS 1+; MACROCYTOSIS 1+; OVALOCYTE 1+
[2022-06-03] MEDS: CALCIUM ACETATE 667 MG CAPSULE (FP) PO SCH ×4 (09:08→17:17)
[2022-06-03] MEDS: PANTOPRAZOLE 40 MG TABLET PO SCH (09:09)
[2022-06-03] MEDS: ALLOPURINOL 100 MG TABLET (FP) PO SCH (09:10)
[2022-06-03] MEDS: FUROSEMIDE 100 MG/10 ML INJECTABLE VIAL IVPB SCH (09:10)
[2022-06-03] MEDS: POLYETHYLENE GLYCOL (HEALTHYLAX) 3350 17 GM PACKET PO SCH ×2 (10:56→22:10)
[2022-06-03] MEDS: ATORVASTATIN CA 40 MG TABLET (FP) PO SCH (22:10)
[2022-06-04] MEDS: PIPERACILLIN/TAZOB 2.25 GM 2.25 GM in DEXTROSE 5%-WATER - 50 ML IVPB SCH ×2 (01:14→10:24)
[2022-06-04] MEDS: DOPAMINE 400 MG/D5W - 400,000 MCG/250 ML INFUS.BAG IVPB SCH (06:09)
[2022-06-04] MEDS: LEVOTHYROXINE NA 25 MCG TABLET (FP) PO SCH (06:12)
[2022-06-04 08:25] LABS: INR 1.55 (0.83-1.09); PROTHROMBIN TIME (PATIENT) 17.9 SEC (9.7-13.0)
[2022-06-04 08:34] LABS: BASO % 0.4 % (0-2.0); EOS % 1.8 % (0-4.5); HEMATOCRIT 32.1 % (32.4-45.2); HEMOGLOBIN 10.5 GM/dL (10.7-15.3); LYMPH % 6.3 % (8-40); MCHC 32.7 g/dl (32.0-36.0); MEAN CELL VOLUME 91.7 fl (80-96); MEAN PLT VOLUME 8.9 fl (7.5-11.1); MONO % 7.5 % (3.8-10.2); PLATELET COUNT 201 10^3/uL (134-434); RDW 20.5 % (11.6-15.6); WHITE BLOOD COUNT 13.9 K/mm3 (4.0-10.0)
[2022-06-04 08:37] LABS: POTASSIUM 3.4 mmol/L (3.5-5.1)
[2022-06-04 08:45] LABS: ALBUMIN 2.9 g/dl (3.4-5.0); BLOOD UREA NITROGEN 71.7 mg/dL (7-18); CALCIUM 9.4 mg/dL (8.5-10.1)
[2022-06-04 08:46] LABS: MAGNESIUM 2.2 mg/dL (1.8-2.4)
[2022-06-04 08:48] LABS: CREATININE 3.4 mg/dL (0.55-1.3)
[2022-06-04 08:49] LABS: BILIRUBIN,TOTAL 1.2 mg/dL (0.2-1); TOT PROT 6.7 g/dl (6.4-8.2)
[2022-06-04 09:06] LABS: HEMATOCRIT 33.8 % (32.4-45.2); MCH 29.8 pg (25.7-33.7); MCHC 32.5 g/dl (32.0-36.0); MEAN CELL VOLUME 91.5 fl (80-96); MEAN PLT VOLUME 8.7 fl (7.5-11.1); PLATELET COUNT 213 10^3/uL (134-434); RBC 3.69 M/mm3 (3.60-5.2); RDW 19.5 % (11.6-15.6); WHITE BLOOD COUNT 13.4 K/mm3 (4.0-10.0)
[2022-06-04 09:54] LABS: CHLORIDE 105 mmol/L (98-107); SODIUM 140 mmol/L (136-145)
[2022-06-04] MEDS ORDERED: SODIUM CHLORIDE 250 ML IV PRN (10:00)
[2022-06-04 10:07] LABS: CALCIUM 9.1 mg/dL (8.5-10.1)
[2022-06-04 10:08] LABS: CO2 31 mmol/L (21-32); GLUCOSE,RANDOM 189 mg/dL (74-106)
[2022-06-04 10:11] LABS: CREATININE 2.3 mg/dL (0.55-1.3); PHOSPHOROUS 2.1 mg/dL (2.5-4.9)
[2022-06-04 10:14] LABS: ANION GAP 4 MMOL/L (8-16); POTASSIUM 2.9 mmol/L (3.5-5.1)
[2022-06-04] MEDS ORDERED: EPOETIN ALFA-EPBX 10,000 UNIT/ML VIAL IVPUSH ONE (10:15)
[2022-06-04] MEDS: CALCIUM ACETATE 667 MG CAPSULE (FP) PO SCH ×3 (10:23→18:26)
[2022-06-04] MEDS: FUROSEMIDE 100 MG/10 ML INJECTABLE VIAL IVPB SCH (10:23)
[2022-06-04] MEDS: POLYETHYLENE GLYCOL (HEALTHYLAX) 3350 17 GM PACKET PO SCH ×2 (10:23→21:21)
[2022-06-04] MEDS: ALLOPURINOL 100 MG TABLET (FP) PO SCH ×2 (10:24→13:12)
[2022-06-04] MEDS: PANTOPRAZOLE 40 MG TABLET PO SCH ×2 (10:24→13:12)
[2022-06-04] MEDS ORDERED: POTASSIUM CHLORIDE ORAL LIQUID 20 MEQ/15 ML PO ONE (13:49)
[2022-06-04] MEDS: ATORVASTATIN CA 40 MG TABLET (FP) PO SCH (21:22)
[2022-06-05] MEDS: LEVOTHYROXINE NA 25 MCG TABLET (FP) PO SCH (05:59)
[2022-06-05 08:13] LABS: POTASSIUM 4.5 mmol/L (3.5-5.1)
[2022-06-05 08:14] LABS: BASO % 0.6 % (0-2.0); EOS % 3.2 % (0-4.5); HEMATOCRIT 32.1 % (32.4-45.2); HEMOGLOBIN 10.4 GM/dL (10.7-15.3); LYMPH % 9.2 % (8-40); MCH 30.5 pg (25.7-33.7); MCHC 32.5 g/dl (32.0-36.0); MEAN CELL VOLUME 93.8 fl (80-96); MEAN PLT VOLUME 8.7 fl (7.5-11.1); MONO % 8.3 % (3.8-10.2); NEUT % 78.7 % (42.8-82.8); PLATELET COUNT 208 10^3/uL (134-434); RBC 3.42 M/mm3 (3.60-5.2); RDW 19.7 % (11.6-15.6); WHITE BLOOD COUNT 11.6 K/mm3 (4.0-10.0)
[2022-06-05 08:17] LABS: CALCIUM 9.1 mg/dL (8.5-10.1)
[2022-06-05 08:18] LABS: BLOOD UREA NITROGEN 62.1 mg/dL (7-18)
[2022-06-05 08:21] LABS: CREATININE 3.4 mg/dL (0.55-1.3)
[2022-06-05] MEDS: POLYETHYLENE GLYCOL (HEALTHYLAX) 3350 17 GM PACKET PO SCH ×2 (09:07→21:16)
[2022-06-05] MEDS: ALLOPURINOL 100 MG TABLET (FP) PO SCH (09:07)
[2022-06-05] MEDS: CALCIUM ACETATE 667 MG CAPSULE (FP) PO SCH ×3 (09:07→16:59)
[2022-06-05] MEDS: FUROSEMIDE 100 MG/10 ML INJECTABLE VIAL IVPB SCH (09:07)
[2022-06-05] MEDS: PANTOPRAZOLE 40 MG TABLET PO SCH (09:07)
[2022-06-05] MEDS: ATORVASTATIN CA 40 MG TABLET (FP) PO SCH (21:16)
[2022-06-05] MEDS: HEPARIN NA (PORCINE) 5,000 UNITS/ML 1ML VIAL SQ SCH (21:16)
[2022-06-06] MEDS: LEVOTHYROXINE NA 25 MCG TABLET (FP) PO SCH (06:30)
[2022-06-06] MEDS: CALCIUM ACETATE 667 MG CAPSULE (FP) PO SCH ×3 (07:46→17:06)
[2022-06-06 08:13] LABS: BASO % 0.5 % (0-2.0); EOS % 3.1 % (0-4.5); HEMATOCRIT 28.8 % (32.4-45.2); HEMOGLOBIN 9.8 GM/dL (10.7-15.3); INR 1.19 (0.83-1.09); LYMPH % 5.8 % (8-40); MEAN CELL VOLUME 93.9 fl (80-96); MEAN PLT VOLUME 8.6 fl (7.5-11.1); MONO % 7.1 % (3.8-10.2); NEUT % 83.5 % (42.8-82.8); PLATELET COUNT 220 10^3/uL (134-434); PROTHROMBIN TIME (PATIENT) 13.8 SEC (9.7-13.0); RBC 3.06 M/mm3 (3.60-5.2); RDW 20.2 % (11.6-15.6); WHITE BLOOD COUNT 11.5 K/mm3 (4.0-10.0)
[2022-06-06 08:27] LABS: POTASSIUM 5.1 mmol/L (3.5-5.1)
[2022-06-06 08:32] LABS: CALCIUM 9.2 mg/dL (8.5-10.1)
[2022-06-06 08:33] LABS: ALBUMIN 2.6 g/dl (3.4-5.0); BLOOD UREA NITROGEN 81.3 mg/dL (7-18); MAGNESIUM 2.1 mg/dL (1.8-2.4)
[2022-06-06 08:35] LABS: CREATININE 3.9 mg/dL (0.55-1.3); PHOSPHOROUS 3.9 mg/dL (2.5-4.9)
[2022-06-06 08:37] LABS: BILIRUBIN,TOTAL 0.7 mg/dL (0.2-1)
[2022-06-06] MEDS: ALLOPURINOL 100 MG TABLET (FP) PO SCH (09:23)
[2022-06-06] MEDS: HEPARIN NA (PORCINE) 5,000 UNITS/ML 1ML VIAL SQ SCH ×2 (09:23→21:19)
[2022-06-06] MEDS: PANTOPRAZOLE 40 MG TABLET PO SCH (09:23)
[2022-06-06] MEDS: FUROSEMIDE 100 MG/10 ML INJECTABLE VIAL IVPB SCH (09:24)
[2022-06-06] MEDS: POLYETHYLENE GLYCOL (HEALTHYLAX) 3350 17 GM PACKET PO SCH ×2 (09:29→21:20)
[2022-06-06] MEDS: ATORVASTATIN CA 40 MG TABLET (FP) PO SCH (21:20)
[2022-06-07] MEDS: LEVOTHYROXINE NA 25 MCG TABLET (FP) PO SCH (06:52)
[2022-06-07] MEDS: CALCIUM ACETATE 667 MG CAPSULE (FP) PO SCH ×3 (07:41→17:29)
[2022-06-07 07:47] LABS: BASO % 0.4 % (0-2.0); EOS % 3.3 % (0-4.5); HEMOGLOBIN 9.7 GM/dL (10.7-15.3); LYMPH % 7.9 % (8-40); MCH 31.7 pg (25.7-33.7); MCHC 33.4 g/dl (32.0-36.0); MEAN CELL VOLUME 94.9 fl (80-96); MEAN PLT VOLUME 9.2 fl (7.5-11.1); MONO % 8.7 % (3.8-10.2); NEUT % 79.7 % (42.8-82.8); PLATELET COUNT 259 10^3/uL (134-434); RBC 3.05 M/mm3 (3.60-5.2); RDW 20.5 % (11.6-15.6); RETICULOCYTES 9.03 % (0.5-1.5); WHITE BLOOD COUNT 9.8 K/mm3 (4.0-10.0)
[2022-06-07 07:49] LABS: INR 1.1 (0.83-1.09); PROTHROMBIN TIME (PATIENT) 12.7 SEC (9.7-13.0)
[2022-06-07 08:00] LABS: POTASSIUM 4.7 mmol/L (3.5-5.1)
[2022-06-07 08:09] LABS: ALBUMIN 2.6 g/dl (3.4-5.0); BLOOD UREA NITROGEN 93.6 mg/dL (7-18); CALCIUM 8.9 mg/dL (8.5-10.1); MAGNESIUM 2.2 mg/dL (1.8-2.4)
[2022-06-07 08:12] LABS: BILIRUBIN,TOTAL 0.7 mg/dL (0.2-1)
[2022-06-07] MEDS: PANTOPRAZOLE 40 MG TABLET PO SCH (09:30)
[2022-06-07] MEDS: ALLOPURINOL 100 MG TABLET (FP) PO SCH (09:30)
[2022-06-07] MEDS: POLYETHYLENE GLYCOL (HEALTHYLAX) 3350 17 GM PACKET PO SCH ×2 (09:33→21:42)
[2022-06-07] MEDS: HEPARIN NA (PORCINE) 5,000 UNITS/ML 1ML VIAL SQ SCH ×2 (09:34→21:41)
[2022-06-07] MEDS: FUROSEMIDE 100 MG/10 ML INJECTABLE VIAL IVPB SCH (09:40)
[2022-06-07] MEDS: ATORVASTATIN CA 40 MG TABLET (FP) PO SCH (21:40)
[2022-06-08] MEDS: LEVOTHYROXINE NA 25 MCG TABLET (FP) PO SCH (07:06)
[2022-06-08 08:15] LABS: INR 1.08 (0.83-1.09); PROTHROMBIN TIME (PATIENT) 12.5 SEC (9.7-13.0)
[2022-06-08 08:17] LABS: BASO % 0.5 % (0-2.0); EOS % 3.2 % (0-4.5); HEMATOCRIT 29.4 % (32.4-45.2); HEMOGLOBIN 9.8 GM/dL (10.7-15.3); LYMPH % 7.5 % (8-40); MCH 31.6 pg (25.7-33.7); MCHC 33.4 g/dl (32.0-36.0); MEAN CELL VOLUME 94.4 fl (80-96); MEAN PLT VOLUME 9.1 fl (7.5-11.1); MONO % 8.8 % (3.8-10.2); PLATELET COUNT 274 10^3/uL (134-434); RBC 3.12 M/mm3 (3.60-5.2); RDW 19.2 % (11.6-15.6); WHITE BLOOD COUNT 9.2 K/mm3 (4.0-10.0)
[2022-06-08 08:26] LABS: CHLORIDE 99 mmol/L (98-107); POTASSIUM 4.6 mmol/L (3.5-5.1); SODIUM 138 mmol/L (136-145)
[2022-06-08 08:35] LABS: ALBUMIN 2.6 g/dl (3.4-5.0); ANION GAP 6 MMOL/L (8-16); CALCIUM 9.2 mg/dL (8.5-10.1); CO2 33 mmol/L (21-32); GLUCOSE,RANDOM 150 mg/dL (74-106)
[2022-06-08 08:38] LABS: SGOT/AST 28 U/L (15-37); SGPT/ALT 35 U/L (13-61)
[2022-06-08 08:40] LABS: BILIRUBIN,TOTAL 0.9 mg/dL (0.2-1); TOT PROT 6.1 g/dl (6.4-8.2)
[2022-06-08 08:41] LABS: ALK PHOS 129 U/L (45-117)
[2022-06-08 08:57] LABS: BLOOD UREA NITROGEN 105.6 mg/dL (7-18)
[2022-06-08] MEDS: CALCIUM ACETATE 667 MG CAPSULE (FP) PO SCH ×5 (09:25→17:43)
[2022-06-08] MEDS: HEPARIN NA (PORCINE) 5,000 UNITS/ML 1ML VIAL SQ SCH ×2 (09:28→21:10)
[2022-06-08] MEDS: PANTOPRAZOLE 40 MG TABLET PO SCH ×2 (09:29→09:40)
[2022-06-08] MEDS: ALLOPURINOL 100 MG TABLET (FP) PO SCH ×2 (09:29→09:40)
[2022-06-08] MEDS: POLYETHYLENE GLYCOL (HEALTHYLAX) 3350 17 GM PACKET PO SCH ×2 (09:29→21:10)
[2022-06-08] MEDS: FUROSEMIDE 100 MG/10 ML INJECTABLE VIAL IVPB SCH (09:30)
[2022-06-08 12:49] LABS: ALLENS TEST POSITIVE; ARTERIAL BLD GAS O2 SATURATION 97.7 % (95-98); ARTERIAL BLOOD GAS BASE EXCESS 1.2 mmol/L (-2-2); ARTERIAL BLOOD GAS PO2 122.6 mmHg (80-100); ARTERIAL BLOOD GAS pH 7.251 (7.350-7.450)
[2022-06-08] MEDS: ATORVASTATIN CA 40 MG TABLET (FP) PO SCH (21:17)
[2022-06-09] MEDS: LEVOTHYROXINE NA 25 MCG TABLET (FP) PO SCH ×2 (06:12→08:57)
[2022-06-09 07:22] LABS: CHLORIDE 99 mmol/L (98-107); SODIUM 139 mmol/L (136-145)
[2022-06-09 07:31] LABS: CALCIUM 9.3 mg/dL (8.5-10.1)
[2022-06-09 07:32] LABS: ANION GAP 6 MMOL/L (8-16); CO2 34 mmol/L (21-32); GLUCOSE,RANDOM 137 mg/dL (74-106)
[2022-06-09 07:35] LABS: CREATININE 3.9 mg/dL (0.55-1.3)
[2022-06-09 07:49] LABS: BLOOD UREA NITROGEN 115.1 mg/dL (7-18)
[2022-06-09 08:23] LABS: EOS % 3.2 % (0-4.5); HEMATOCRIT 29.7 % (32.4-45.2); HEMOGLOBIN 9.7 GM/dL (10.7-15.3); LYMPH % 9.9 % (8-40); MCH 31.2 pg (25.7-33.7); MCHC 32.7 g/dl (32.0-36.0); MEAN CELL VOLUME 95.2 fl (80-96); MEAN PLT VOLUME 8.7 fl (7.5-11.1); MONO % 8.5 % (3.8-10.2); NEUT % 77.4 % (42.8-82.8); PLATELET COUNT 276 10^3/uL (134-434); RBC 3.12 M/mm3 (3.60-5.2); RDW 20.1 % (11.6-15.6); WHITE BLOOD COUNT 7.2 K/mm3 (4.0-10.0)
[2022-06-09] MEDS: CALCIUM ACETATE 667 MG CAPSULE (FP) PO SCH ×3 (08:56→17:53)
[2022-06-09] MEDS: FUROSEMIDE 100 MG/10 ML INJECTABLE VIAL IVPB SCH (09:03)
[2022-06-09] MEDS: POLYETHYLENE GLYCOL (HEALTHYLAX) 3350 17 GM PACKET PO SCH ×3 (09:03→21:06)
[2022-06-09] MEDS: HEPARIN NA (PORCINE) 5,000 UNITS/ML 1ML VIAL SQ SCH ×3 (09:03→21:06)
[2022-06-09] MEDS: ALLOPURINOL 100 MG TABLET (FP) PO SCH (09:03)
[2022-06-09] MEDS: PANTOPRAZOLE 40 MG TABLET PO SCH (09:03)
[2022-06-09] MEDS ORDERED: SODIUM CHLORIDE 250 ML IV PRN (14:21)
[2022-06-09] MEDS ORDERED: FUROSEMIDE 100 MG/10 ML INJECTABLE VIAL IVPB ONE (15:00)
[2022-06-09] MEDS ORDERED: ATORVASTATIN CA 20 MG TABLET (FP) ONE (19:56)
[2022-06-09] MEDS: ATORVASTATIN CA 40 MG TABLET (FP) PO SCH ×2 (20:09→21:07)
[2022-06-10] MEDS: LEVOTHYROXINE NA 25 MCG TABLET (FP) PO SCH (06:16)
[2022-06-10 06:43] LABS: BASO % 0.9 % (0-2.0); EOS % 2.9 % (0-4.5); HEMOGLOBIN 9.9 GM/dL (10.7-15.3); MCH 30.6 pg (25.7-33.7); MCHC 32.9 g/dl (32.0-36.0); MEAN CELL VOLUME 93.1 fl (80-96); MEAN PLT VOLUME 8.9 fl (7.5-11.1); MONO % 10.5 % (3.8-10.2); NEUT % 75.7 % (42.8-82.8); PLATELET COUNT 280 10^3/uL (134-434); RBC 3.23 M/mm3 (3.60-5.2); RDW 19.2 % (11.6-15.6); WHITE BLOOD COUNT 7.1 K/mm3 (4.0-10.0)
[2022-06-10 07:06] LABS: CHLORIDE 99 mmol/L (98-107); POTASSIUM 4.7 mmol/L (3.5-5.1); SODIUM 141 mmol/L (136-145)
[2022-06-10 07:17] LABS: ALBUMIN 2.8 g/dl (3.4-5.0); CALCIUM 9.7 mg/dL (8.5-10.1)
[2022-06-10 07:18] LABS: ANION GAP 5 MMOL/L (8-16); CO2 37 mmol/L (21-32); GLUCOSE,RANDOM 157 mg/dL (74-106)
[2022-06-10 07:20] LABS: CREATININE 3.6 mg/dL (0.55-1.3)
[2022-06-10 07:21] LABS: SGOT/AST 29 U/L (15-37); SGPT/ALT 32 U/L (13-61)
[2022-06-10 07:22] LABS: BILIRUBIN,TOTAL 1.1 mg/dL (0.2-1)
[2022-06-10 07:23] LABS: TOT PROT 6.3 g/dl (6.4-8.2)
[2022-06-10 07:24] LABS: ALK PHOS 133 U/L (45-117)
[2022-06-10 07:53] LABS: BLOOD UREA NITROGEN 117.4 mg/dL (7-18)
[2022-06-10] MEDS: CALCIUM ACETATE 667 MG CAPSULE (FP) PO SCH ×3 (08:00→17:30)
[2022-06-10] MEDS: POLYETHYLENE GLYCOL (HEALTHYLAX) 3350 17 GM PACKET PO SCH ×2 (09:47→21:22)
[2022-06-10] MEDS: HEPARIN NA (PORCINE) 5,000 UNITS/ML 1ML VIAL SQ SCH ×2 (09:47→21:23)
[2022-06-10] MEDS: ALLOPURINOL 100 MG TABLET (FP) PO SCH (09:47)
[2022-06-10] MEDS: PANTOPRAZOLE 40 MG TABLET PO SCH (09:47)
[2022-06-10] MEDS: FUROSEMIDE 100 MG/10 ML INJECTABLE VIAL IVPB SCH (10:23)
[2022-06-10] MEDS ORDERED: SODIUM CHLORIDE 250 ML IV PRN ×2 (11:12→19:29)
[2022-06-10] MEDS ORDERED: LIDOCAINE HCL 1%, 10 MG/ML (10ML VIAL) MDV ONE (14:32)
[2022-06-10] MEDS ORDERED: ONDANSETRON 4 MG/2 ML VIAL IVPUSH PRN ×2 (14:49→17:44)
[2022-06-10] MEDS ORDERED: PROMETHAZINE HCL 25 MG/1 ML VIAL IVPB PRN ×2 (14:49→17:44)
[2022-06-10] MEDS ORDERED: SODIUM CHLORIDE 1,000 ML IV SCH (15:00)
[2022-06-10] MEDS ORDERED: SODIUM CHLORIDE 0.9% P/F 10 ML VIAL IJ ONE (16:31)
[2022-06-10] MEDS ORDERED: ceFAZolin SODIUM 1 GM VIAL ONE (16:31)
[2022-06-10] MEDS ORDERED: LIDOCAINE HCL/PF 2% SDV 5ML VIAL ONE (16:31)
[2022-06-10] MEDS ORDERED: ceFAZolin SODIUM 1 GM VIAL IVPB ONE (16:53)
[2022-06-10] MEDS ORDERED: EPOETIN ALFA-EPBX 10,000 UNIT/ML VIAL IVPUSH ONE ×2 (17:00→19:30)
[2022-06-10] MEDS ORDERED: LIDOCAINE HCL 1%, 10 MG/ML (20ML VIAL) INF ONE ×2 (17:10)
[2022-06-10] MEDS ORDERED: BISACODYL 5 MG TABLET.DR (FP) PO PRN (17:44)
[2022-06-10] MEDS ORDERED: DOCUSATE SODIUM 100 MG CAPSULE (FP) PO PRN (17:44)
[2022-06-10] MEDS: ATORVASTATIN CA 40 MG TABLET (FP) PO SCH (21:22)
[2022-06-10] MEDS: SODIUM CHLORIDE 1,000 ML IV SCH (21:24)
[2022-06-11] MEDS: LEVOTHYROXINE NA 25 MCG TABLET (FP) PO SCH (06:10)
[2022-06-11 07:22] LABS: BASO % 1.2 % (0-2.0); HEMATOCRIT 31.7 % (32.4-45.2); HEMOGLOBIN 10.1 GM/dL (10.7-15.3); LYMPH % 9.4 % (8-40); MCH 30.1 pg (25.7-33.7); MCHC 31.9 g/dl (32.0-36.0); MEAN CELL VOLUME 94.3 fl (80-96); MEAN PLT VOLUME 8.8 fl (7.5-11.1); MONO % 11.9 % (3.8-10.2); NEUT % 76.5 % (42.8-82.8); PLATELET COUNT 276 10^3/uL (134-434); RBC 3.36 M/mm3 (3.60-5.2); RDW 19.9 % (11.6-15.6); WHITE BLOOD COUNT 5.4 K/mm3 (4.0-10.0)
[2022-06-11 07:41] LABS: POTASSIUM 4.2 mmol/L (3.5-5.1)
[2022-06-11 07:50] LABS: ALBUMIN 3.2 g/dl (3.4-5.0); CREATININE 2.3 mg/dL (0.55-1.3)
[2022-06-11 07:51] LABS: TOT PROT 6.7 g/dl (6.4-8.2)
[2022-06-11 07:52] LABS: BILIRUBIN,TOTAL 0.8 mg/dL (0.2-1)
[2022-06-11 07:59] LABS: BLOOD UREA NITROGEN 55.8 mg/dL (7-18)
[2022-06-11] MEDS: CALCIUM ACETATE 667 MG CAPSULE (FP) PO SCH ×3 (08:24→17:38)
[2022-06-11] MEDS: ALLOPURINOL 100 MG TABLET (FP) PO SCH (09:18)
[2022-06-11] MEDS: HEPARIN NA (PORCINE) 5,000 UNITS/ML 1ML VIAL SQ SCH ×2 (09:18→22:03)
[2022-06-11] MEDS: PANTOPRAZOLE 40 MG TABLET PO SCH (09:18)
[2022-06-11] MEDS: POLYETHYLENE GLYCOL (HEALTHYLAX) 3350 17 GM PACKET PO SCH ×2 (09:20→22:05)
[2022-06-11] MEDS: FUROSEMIDE 100 MG/10 ML INJECTABLE VIAL IVPB SCH (10:00)
[2022-06-11] MEDS ORDERED: ATORVASTATIN CA 20 MG TABLET (FP) ONE (21:23)
[2022-06-11] MEDS: ATORVASTATIN CA 40 MG TABLET (FP) PO SCH (22:03)
[2022-06-11] MEDS: SODIUM CHLORIDE 1,000 ML IV SCH (22:08)
[2022-06-12] MEDS: LEVOTHYROXINE NA 25 MCG TABLET (FP) PO SCH (06:33)
[2022-06-12 07:43] LABS: BASO % 1.5 % (0-2.0); EOS % 2.3 % (0-4.5); HEMATOCRIT 33.9 % (32.4-45.2); HEMOGLOBIN 10.8 GM/dL (10.7-15.3); LYMPH % 14.4 % (8-40); MCH 30.5 pg (25.7-33.7); MCHC 31.8 g/dl (32.0-36.0); MEAN PLT VOLUME 9.1 fl (7.5-11.1); MONO % 15.7 % (3.8-10.2); NEUT % 66.1 % (42.8-82.8); PLATELET COUNT 283 10^3/uL (134-434); RBC 3.54 M/mm3 (3.60-5.2); RDW 19.4 % (11.6-15.6); WHITE BLOOD COUNT 6.1 K/mm3 (4.0-10.0)
[2022-06-12 07:59] LABS: POTASSIUM 4.3 mmol/L (3.5-5.1)
[2022-06-12 08:11] LABS: ALBUMIN 3.1 g/dl (3.4-5.0); BLOOD UREA NITROGEN 31.2 mg/dL (7-18)
[2022-06-12 08:14] LABS: CREATININE 2.2 mg/dL (0.55-1.3)
[2022-06-12 08:16] LABS: BILIRUBIN,TOTAL 0.8 mg/dL (0.2-1); TOT PROT 6.5 g/dl (6.4-8.2)
[2022-06-12] MEDS: CALCIUM ACETATE 667 MG CAPSULE (FP) PO SCH ×3 (09:29→16:42)
[2022-06-12] MEDS: ALLOPURINOL 100 MG TABLET (FP) PO SCH (09:29)
[2022-06-12] MEDS: PANTOPRAZOLE 40 MG TABLET PO SCH (09:29)
[2022-06-12] MEDS: ASPIRIN 81 MG CHEWABLE TABLETS PO SCH (09:29)
[2022-06-12] MEDS: HEPARIN NA (PORCINE) 5,000 UNITS/ML 1ML VIAL SQ SCH ×2 (09:29→22:00)
[2022-06-12] MEDS: FUROSEMIDE 100 MG/10 ML INJECTABLE VIAL IVPB SCH (09:30)
[2022-06-12] MEDS: POLYETHYLENE GLYCOL (HEALTHYLAX) 3350 17 GM PACKET PO SCH ×2 (09:30→22:00)
[2022-06-12] MEDS: metoPROLOL SUCCINATE 25 MG TAB.SR.24H (FP) PO SCH (14:06)
[2022-06-12] MEDS: ATORVASTATIN CA 40 MG TABLET (FP) PO SCH (22:00)
[2022-06-13] MEDS: LEVOTHYROXINE NA 25 MCG TABLET (FP) PO SCH (06:26)
[2022-06-13] MEDS: CALCIUM ACETATE 667 MG CAPSULE (FP) PO SCH ×3 (08:59→17:30)
[2022-06-13] MEDS: metoPROLOL SUCCINATE 25 MG TAB.SR.24H (FP) PO SCH (09:32)
[2022-06-13] MEDS: FUROSEMIDE 100 MG/10 ML INJECTABLE VIAL IVPB SCH (09:32)
[2022-06-13] MEDS: ALLOPURINOL 100 MG TABLET (FP) PO SCH (09:32)
[2022-06-13] MEDS: ASPIRIN 81 MG CHEWABLE TABLETS PO SCH (09:32)
[2022-06-13] MEDS: PANTOPRAZOLE 40 MG TABLET PO SCH (09:32)
[2022-06-13] MEDS: POLYETHYLENE GLYCOL (HEALTHYLAX) 3350 17 GM PACKET PO SCH ×2 (09:33→22:31)
[2022-06-13] MEDS: HEPARIN NA (PORCINE) 5,000 UNITS/ML 1ML VIAL SQ SCH ×2 (09:33→22:31)
[2022-06-13] MEDS: ATORVASTATIN CA 40 MG TABLET (FP) PO SCH (22:32)
[2022-06-14] MEDS: LEVOTHYROXINE NA 25 MCG TABLET (FP) PO SCH (06:31)
[2022-06-14 09:37] LABS: HEMATOCRIT 32.5 % (32.4-45.2); HEMOGLOBIN 10.4 GM/dL (10.7-15.3); MCH 30.1 pg (25.7-33.7); MEAN PLT VOLUME 9.3 fl (7.5-11.1); PLATELET COUNT 295 10^3/uL (134-434); RBC 3.46 M/mm3 (3.60-5.2); RDW 18.8 % (11.6-15.6); WHITE BLOOD COUNT 6.5 K/mm3 (4.0-10.0)
[2022-06-14] MEDS ORDERED: SODIUM CHLORIDE 250 ML IV PRN (09:46)
[2022-06-14 10:13] LABS: CALCIUM 9.2 mg/dL (8.5-10.1)
[2022-06-14 10:26] LABS: BLOOD UREA NITROGEN 57.5 mg/dL (7-18); POTASSIUM 3.6 mmol/L (3.5-5.1)
[2022-06-14] MEDS ORDERED: EPOETIN ALFA-EPBX 4,000 UNIT/ML VIAL IVPUSH ONE (10:30)
[2022-06-14] MEDS: CALCIUM ACETATE 667 MG CAPSULE (FP) PO SCH ×3 (13:03→17:12)
[2022-06-14] MEDS: POLYETHYLENE GLYCOL (HEALTHYLAX) 3350 17 GM PACKET PO SCH ×2 (13:03→23:14)
[2022-06-14] MEDS: ASPIRIN 81 MG CHEWABLE TABLETS PO SCH (13:11)
[2022-06-14] MEDS: HEPARIN NA (PORCINE) 5,000 UNITS/ML 1ML VIAL SQ SCH ×2 (13:12→23:15)
[2022-06-14] MEDS: metoPROLOL SUCCINATE 25 MG TAB.SR.24H (FP) PO SCH (13:12)
[2022-06-14] MEDS: PANTOPRAZOLE 40 MG TABLET PO SCH (13:12)
[2022-06-14] MEDS: ALLOPURINOL 100 MG TABLET (FP) PO SCH (13:12)
[2022-06-14] MEDS: FUROSEMIDE 100 MG/10 ML INJECTABLE VIAL IVPB SCH (13:18)
[2022-06-14] MEDS: ATORVASTATIN CA 40 MG TABLET (FP) PO SCH (23:14)
[2022-06-15] MEDS: LEVOTHYROXINE NA 25 MCG TABLET (FP) PO SCH (06:03)
[2022-06-15] MEDS: CALCIUM ACETATE 667 MG CAPSULE (FP) PO SCH ×3 (08:46→18:09)
[2022-06-15] MEDS: POLYETHYLENE GLYCOL (HEALTHYLAX) 3350 17 GM PACKET PO SCH ×2 (10:19→23:21)
[2022-06-15] MEDS: PANTOPRAZOLE 40 MG TABLET PO SCH (10:19)
[2022-06-15] MEDS: metoPROLOL SUCCINATE 25 MG TAB.SR.24H (FP) PO SCH (10:20)
[2022-06-15] MEDS: ALLOPURINOL 100 MG TABLET (FP) PO SCH (10:20)
[2022-06-15] MEDS: HEPARIN NA (PORCINE) 5,000 UNITS/ML 1ML VIAL SQ SCH ×2 (10:20→23:22)
[2022-06-15] MEDS: ASPIRIN 81 MG CHEWABLE TABLETS PO SCH (10:20)
[2022-06-15] MEDS: FUROSEMIDE 100 MG/10 ML INJECTABLE VIAL IVPB SCH (11:06)
[2022-06-15] MEDS: ATORVASTATIN CA 40 MG TABLET (FP) PO SCH (23:21)
[2022-06-16] MEDS: LEVOTHYROXINE NA 25 MCG TABLET (FP) PO SCH (07:04)
[2022-06-16 08:39] LABS: HEMATOCRIT 34.4 % (32.4-45.2); HEMOGLOBIN 11.2 GM/dL (10.7-15.3); MCH 31.4 pg (25.7-33.7); MCHC 32.4 g/dl (32.0-36.0); MEAN PLT VOLUME 9.5 fl (7.5-11.1); PLATELET COUNT 305 10^3/uL (134-434); RBC 3.55 M/mm3 (3.60-5.2); RDW 19.5 % (11.6-15.6); WHITE BLOOD COUNT 6.6 K/mm3 (4.0-10.0)
[2022-06-16 09:10] LABS: CALCIUM 10.1 mg/dL (8.5-10.1); POTASSIUM 4.8 mmol/L (3.5-5.1)
[2022-06-16 09:11] LABS: BLOOD UREA NITROGEN 41.4 mg/dL (7-18)
[2022-06-16 09:14] LABS: CREATININE 2.5 mg/dL (0.55-1.3)
[2022-06-16] MEDS ORDERED: SODIUM CHLORIDE 250 ML IV PRN (10:07)
[2022-06-16] MEDS ORDERED: HEPARIN NA (PORCINE) 5,000 UNITS/ML 1ML VIAL IVPUSH ONE (10:15)
[2022-06-16] MEDS ORDERED: EPOETIN ALFA-EPBX 4,000 UNIT/ML VIAL SQ ONE (10:30)
[2022-06-16] MEDS: CALCIUM ACETATE 667 MG CAPSULE (FP) PO SCH ×3 (11:05→17:29)
[2022-06-16] MEDS: HEPARIN NA (PORCINE) 5,000 UNITS/ML 1ML VIAL SQ SCH ×2 (11:06→22:15)
[2022-06-16] MEDS: FUROSEMIDE 100 MG/10 ML INJECTABLE VIAL IVPB SCH (12:42)
[2022-06-16] MEDS: metoPROLOL SUCCINATE 25 MG TAB.SR.24H (FP) PO SCH (12:42)
[2022-06-16] MEDS: ASPIRIN 81 MG CHEWABLE TABLETS PO SCH (12:44)
[2022-06-16] MEDS: PANTOPRAZOLE 40 MG TABLET PO SCH (12:44)
[2022-06-16] MEDS: POLYETHYLENE GLYCOL (HEALTHYLAX) 3350 17 GM PACKET PO SCH ×2 (12:45→22:15)
[2022-06-16] MEDS: ALLOPURINOL 100 MG TABLET (FP) PO SCH (12:45)
[2022-06-16 22:00] VITALS: RESP 20
[2022-06-16] MEDS: ATORVASTATIN CA 40 MG TABLET (FP) PO SCH (22:14)
[2022-06-17] MEDS: LEVOTHYROXINE NA 25 MCG TABLET (FP) PO SCH (06:51)
[2022-06-17] MEDS: CALCIUM ACETATE 667 MG CAPSULE (FP) PO SCH (08:00)
[2022-06-17] MEDS: ALLOPURINOL 100 MG TABLET (FP) PO SCH (09:47)
[2022-06-17] MEDS: POLYETHYLENE GLYCOL (HEALTHYLAX) 3350 17 GM PACKET PO SCH (09:48)
[2022-06-17] MEDS: metoPROLOL SUCCINATE 25 MG TAB.SR.24H (FP) PO SCH (09:48)
[2022-06-17] MEDS: PANTOPRAZOLE 40 MG TABLET PO SCH (09:48)
[2022-06-17] MEDS: HEPARIN NA (PORCINE) 5,000 UNITS/ML 1ML VIAL SQ SCH (09:48)
[2022-06-17] MEDS: ASPIRIN 81 MG CHEWABLE TABLETS PO SCH (09:48)
[2022-06-17] MEDS ORDERED: TORSEMIDE 100 MG TABLET PO SCH (10:00)
[2022-06-17 11:13] VITALS: BP 123/64; PULSE 75; TEMP 99
== END 2022-06-17 11:54 | DRG 291 ==
LOC: JER 13:07 → JERBED 14:25 → J4W 21:06 → JICU 05-28 04:07 → J4W 06-03 21:57 → J7W 06-13 11:25
PROVIDERS: ADMIT Internal Medicine; ATTEND Internal Medicine
PROC: 30233N1 Transfusion of Nonautologous Red Blood Cells into Peripheral Vein, Percutaneous Approach (ICD-10-PCS; 2022-05-25)
PROC: 02HV33Z Insertion of Infusion Device into Superior Vena Cava, Percutaneous Approach (ICD-10-PCS; principal; 2022-05-31)
PROC: B548ZZA Ultrasonography of Superior Vena Cava, Guidance (ICD-10-PCS; 2022-05-31)
PROC: 5A1D70Z Performance of Urinary Filtration, Intermittent, Less than 6 Hours Per Day (ICD-10-PCS; 2022-05-31)
PROC: 02HV33Z Insertion of Infusion Device into Superior Vena Cava, Percutaneous Approach (ICD-10-PCS; 2022-06-01)
PROC: B548ZZA Ultrasonography of Superior Vena Cava, Guidance (ICD-10-PCS; 2022-06-01)
PROC: 02HV33Z Insertion of Infusion Device into Superior Vena Cava, Percutaneous Approach (ICD-10-PCS; 2022-06-10)
PROC: B548ZZA Ultrasonography of Superior Vena Cava, Guidance (ICD-10-PCS; 2022-06-10)
DX: I13.0 Hypertensive heart and chronic kidney disease with heart failure and stage 1 through stage 4 chronic kidney disease, or unspecified chronic kidney disease (principal); A41.9 Sepsis, unspecified organism; I50.33 Acute on chronic diastolic (congestive) heart failure; J18.9 Pneumonia, unspecified organism; R57.0 Cardiogenic shock; J96.02 Acute respiratory failure with hypercapnia; J96.01 Acute respiratory failure with hypoxia; D68.9 Coagulation defect, unspecified; E87.1 Hypo-osmolality and hyponatremia; N18.4 Chronic kidney disease, stage 4 (severe); N17.9 Acute kidney failure, unspecified; I48.92 Unspecified atrial flutter; E87.29 Other acidosis; E11.22 Type 2 diabetes mellitus with diabetic chronic kidney disease; Z99.81 Dependence on supplemental oxygen; I25.10 Atherosclerotic heart disease of native coronary artery without angina pectoris; D63.1 Anemia in chronic kidney disease; I48.0 Paroxysmal atrial fibrillation; E03.9 Hypothyroidism, unspecified; I27.20 Pulmonary hypertension, unspecified; D47.2 Monoclonal gammopathy; I44.0 Atrioventricular block, first degree
CPT/HCPCS: 0241U-QW; 36415; 36430; 36600; 71045-TC-FY; 76700-TC; 80048; 80053; 80061; 82272; 82533; 82550; 82553; 82728; 82803; 82962; 82977; 83010; 83036; 83540; 83550; 83615; 83735; 83880; 83883; 84100; 84155; 84165; 84439; 84443; 84484; 85025; 85027; 85045; 85362; 85379; 85384; 85610; 85730; 86705; 86803; 86850; 86870; 86900; 86901; 86902; 86922; 87040; 87086; 87338; 87340; 87517; 87899; 93005; 93010; 93306-TC; 94660; 94760; 97116-GP; 97161-GP; 99285-25; C1750; C9803-CS; J1644; J1756; P9017; P9058; Q5106; U0003; U0005

== ENCOUNTER 2022-09-30 04:25 | Day surgery (SDC) | payer OTHER ==
[2022-09-28 12:48] VITALS: BMI 25.2
[2022-09-30] MEDS ORDERED: POVIDONE-IODINE OINTMENT 10% - 28.4 GM TUBE ONE (15:13)
[2022-09-30] MEDS ORDERED: PAPAVERINE HCL 30 MG/1 ML 10 ML VIAL NR ONE (15:13)
[2022-09-30] MEDS ORDERED: HEPARIN NA (PORCINE) 5,000 UNITS/ML 1ML VIAL ONE (15:14)
[2022-09-30] MEDS ORDERED: LIDOCAINE HCL 1%, 10 MG/ML (10ML VIAL) MDV ONE (15:34)
[2022-09-30] MEDS ORDERED: MIDAZOLAM HCL 2 MG/2 ML SINGLE DOSE VIAL ONE (15:48)
[2022-09-30] MEDS ORDERED: ceFAZolin SODIUM 1 GM VIAL IVPB ONE (16:13)
[2022-09-30] MEDS ORDERED: LIDOCAINE HCL 1%, 10 MG/ML (20ML VIAL) SQ ONE (16:15)
[2022-09-30] MEDS ORDERED: PROPOFOL 20 ML ONE (16:18)
[2022-09-30] MEDS ORDERED: POVIDONE-IODINE OINTMENT 10% - 28.4 GM TUBE TP ONE (17:39)
[2022-09-30] MEDS ORDERED: ONDANSETRON 4 MG/2 ML VIAL IVPUSH PRN (18:05)
[2022-09-30] MEDS ORDERED: SODIUM CHLORIDE 1,000 ML IV SCH (18:15)
[2022-09-30 18:42] VITALS: RESP 20; TEMP 97
[2022-09-30 19:14] VITALS: BP 113/53; PULSE 74
== END 2022-09-30 19:00 | disposition home or self-care (01) ==
LOC: JASU-SURG 04:25
PROVIDERS: ATTEND Surgery
PROC: 03180ZD Bypass Left Brachial Artery to Upper Arm Vein, Open Approach (ICD-10-PCS; principal; 2022-09-30 15:30)
DX: I12.0 Hypertensive chronic kidney disease with stage 5 chronic kidney disease or end stage renal disease (principal); E11.22 Type 2 diabetes mellitus with diabetic chronic kidney disease; N18.6 End stage renal disease; Z99.2 Dependence on renal dialysis; Z79.84 Long term (current) use of oral hypoglycemic drugs
CPT/HCPCS: 82962; 94760; C1769; J1644